=== PATIENT | female | born 1950 | race Caucasian/White ===

== ENCOUNTER 2016-05-22 00:31 | Day surgery (SDC) | payer MEDICARE, MEDICAID ==
[2016-05-22] VITALS (9 sets, daily range): BP systolic 110–136; BP diastolic 31–48; PULSE 74–77; RESP 16–18; O2SAT 98–99
[~2016-05-22] VITALS: Ht 152.4 cm; Wt 113.0 kg
[~2016-05-22 00:31] MED LIST: ACET-171 PO; ALBU8.5H2 INH; ALLO300T2 PO; AMT25T PO; ASCO-294 PO; ASPI-973 PO; ATOR20TA PO; CETI10CA PO; CHOL400T PO; FRSM80T PO; INSU100C8 SUBQ; INSU100I13 SUBQ; IPRA4AER IH; KEN1C TOP; METO10TA3 PO; METO50TA3 PO; MIDO5TAB PO; OMEP20TA86 PO; OXYC5TAB72 PO; ROPI1TAB3 PO; SEVE800T7 PO; VENL75CA95 PO
[2016-05-22 10:53] LABS: BASOPHILS % (AUTO) 0.3 % (0-3); EOSINOPHILS % (AUTO) 1.7 % (0-5); MONOCYTES % (AUTO) 6.5 % (4-12); Mean Corpuscular Hemoglobin 30.2 pg (27.0-35.0); NEUTROPHILS % (AUTO) 78.1 % (40-74); Platelet Count 177 bil/L (150-400)
[2016-05-22] MEDS ORDERED: 0.9% Sodium Chloride 1,000 ML ONE (10:58)
[2016-05-22] MEDS ORDERED: CeFAZolin 2 Gm/50 mL D5W Duplex Bag IV ONE (10:58)
[2016-05-22] MEDS ORDERED: CeFAZolin 2 Gm/50 mL D5W IV Premix IV ONE (11:05)
[2016-05-22 11:08] LABS: INR 0.95 ratio
[2016-05-22] MEDS ORDERED: Heparin 5,000 Units/500 mL NS Premix IV ONE (11:43)
[2016-05-22] MEDS ORDERED: Heparin 1,000 Unit/mL 10 mL Inj ONE (11:43)
[2016-05-22] MEDS ORDERED: fentaNYL-PF 50 mCg/mL 2 mL Inj ONE (11:56)
--- NOTE | 2016-05-22 15:16 | DRSVH ---
PROCEDURE: ARTERIO VENOUS FISTULOGRAM (PNL) INDICATIONS: ESRD TECHNIQUE: FLUOROSCOPY TIME: 3.6 minutes. COMPARISON: None. Technique: 1. Conscious sedation for 45 minutes 2. Retrograde access of the midportion of the left upper extremity venous outflow. 3. Fistulogram performed in stations to the level of the SVC and reflux fistulogram at the arterioven ous anastomosis. 4. Balloon angioplasty at the arteriovenous anastomosis. 5. Balloon angioplasty of the peripheral portion of the venous outflow. 6. Completion fistulogram. 7. Sheath removal hemostasis. The indications, alternatives, benefits, risks, and complications of the procedure were explained to the patient.. Informed written consent was obtained and placed in the chart. The patient was krystal t to the angiography suite, and conscious sedation was administered intravenously by snf staff, while continuous cardiorespiratory monitoring was performed. Maximum sterile barrier technique was employed per standard protocol, including hand hygiene, cap, ma sk, sterile gown and gloves, and 2% chlorhexidine. One percent lidocaine was used to anesthetize the skin over the area of interest. In a retrograde fashion using a micropuncture kit the left upper extr emity venous outflow was accessed. Fistulogram was performed through the micropuncture sheath. An 035 wire was advanced across the arteriovenous fistula with either the Kumpe catheter. The micropuncture sheath was exchanged for a short 6 Sinhala sheath. Balloon angioplasty was performed at the arteriove nous anastomosis with a 4 mm x 2 cm high pressure balloon. Fistulogram was performed. Next, balloon a ngioplasty was performed more centrally in the venous outflow with a focal high-grade stenosis with a 6 mm x 40 mm high pressure balloon. Completion fistulogram was performed. The wire was removed, the sheath was removed, and hemostasis was achieved. FINDINGS: Initial fistulogram demonstrates a focal high-grade stenosis at the arteriovenous anastomo sis and a high-grade stenosis within the midportion of the venous outflow. Completion fistulogram dem onstrates resolution of the stenoses. There is no central stenosis or fistulogram of the central port ion of the venous outflow demonstrates a moderate grade stenosis in the central portion of the cephal ic vein. There is mild collateralization of the central portion of the cephalic vein central to this stenosis. The axillary vein, brachiocephalic vein, and SVC are widely patent. IMPRESSION: 1. Status post balloon angioplasty of a focal high-grade stenosis at the arteriovenous anastomosis. 2. Status post angioplasty of a focal high-grade stenosis within the mid venous outflow. 3. Mild stenosis within the central portion of the cephalic vein. No angioplasty was performed at thi s time. If there is persistent elevated high venous pressures or prolonged bleeding after dialysis, b alloon angioplasty of this region could be considered in the future. Dictated by: Tala Metz M.D. on 05/22/2016 at 15:15 Approved by: Tala Metz M.D. on 05/22/2016 at 15:15
--- NOTE | 2016-05-22 15:39 | NUR ---
Pt discharged to home, purse string suture d/c'd, no bleeding/hematoma at puncture site, IV discontinued. Pt's VSS, given all discharge instructions. Pt left via wheelchair with family member, had no further questions at time of d/c.
== END 2016-05-22 23:59 | disposition home or self-care (01) ==
LOC: SOUO 00:31
PROVIDERS: ATTEND Radiology Vascular & Interventional Radiology
DX: T82.858A Stenosis of other vascular prosthetic devices, implants and grafts, initial encounter (principal); N18.6 End stage renal disease; Z99.2 Dependence on renal dialysis; D63.1 Anemia in chronic kidney disease; Z87.440 Personal history of urinary (tract) infections
CPT/HCPCS: 36415; 36905; 80048; 85025; 85610; 85730; 99152; 99153; C1725; C1769; C1894; J1644; J2250; J3010; Q9967

== ENCOUNTER 2016-08-20 23:39 | Inpatient (IN) | payer MEDICARE, MEDICAID ==
[~2016-08-20] VITALS: Ht 152.4 cm; Wt 119.7 kg
--- NOTE | 2016-08-20 23:49 | ED.REPORT ---
HPI-Fever Date of Service Aug 20, 2016 ED Provider: Jerrell Woods DO Pt is a 66 y.o. female with an extensive medical hx including ESRD on hemodialysis, DM, CHF, CA, and CVA who presents to the ED via EMS from [facility] c/o a fever onset today. Pt is currently at [facility] undergoing treatment for MRSA, she is supposed to be released Sunday. Upon arrival pt states she is "numb all over". Pt was being administered Tylenol by care staff, her last dose at 2215. Nursing Notes Stated Complaint: FEVER Nursing Notes Reviewed: Yes Allergies: Coded Allergies: metformin (Verified Adverse Reaction, Severe, itching, 04/17/16) sulfamethoxazole (Verified Adverse Reaction, Severe, Nausea, 04/17/16) trimethoprim (Verified Adverse Reaction, Severe, Nausea, 04/17/16) Uncoded Allergies: COUGH SYRUPS (Allergy, Unknown, UNKNOWN, 11/24/15) TETANUS (Allergy, Unknown, UNKNOWN, 11/24/15) Scheduled Albuterol/Ipratropium (Combivent Respimat Inhal [place]) 120 Spr/4 Gm Inhaler 2 PUFF IH BID Allopurinol (Allopurinol) 300 Mg Tablet 150 MG PO HS Amitriptyline (Amitriptyline) 25 Mg Tab 50 MG PO HS Ascorbate Calcium (Vitamin C) 500 Mg Tablet 500 PO DAILY Aspirin (Aspirin) 81 Mg Tablet 81 MG PO DAILY Atorvastatin (Lipitor) 20 Mg Tablet 20 MG PO DAILY Cholecalciferol (Vitamin D3) (Vitamin D3) 400 Unit Tablet 400 UNIT PO DAILY Furosemide (Furosemide) 80 Mg Tab 80 MG PO DAILY Insulin Glargine (Lantus U100 Solostar Insulin Pen) 100 Unit/1 Ml Insuln.pen 15 UNITS SUBQ HS Metoprolol Tartrate (Metoprolol Tartrate) 50 Mg Tablet 25 MG PO BID Midodrine (Midodrine) 5 Mg Tablet 10 MG PO BID take on dialysis days Omeprazole (Omeprazole) 20 Mg Tablet.dr 20 MG PO DAILY Ropinirole (Ropinirole) 1 Mg Tablet 1 MG PO HS Sevelamer Carbonate (Renvela) 800 Mg Tablet 1,600 PO TID with meals Venlafaxine ER (Venlafaxine ER) 75 Mg Cap.er.24h 75 MG PO DAILY take along with 150mg ER for a total daily dose of 225mg Venlafaxine ER (Venlafaxine ER) 150 Mg Cap.er.24h 150 MG PO DAILY take along with 75mg ER for a total daily dose of 225mg Scheduled PRN Acetaminophen (Acetaminophen) 500 Mg Tablet 500 MG PO Q6H PRN PRN For Pain Albuterol HFA (Proair HFA) 8.5 Gm Hfa.aer.ad 2 PUFF INH Q4H PRN PRN For Shortness of Breath Cetirizine HCl (Zyrtec) 10 Mg Capsule 10 MG PO HS PRN PRN allergy Insulin Aspart (NovoLOG U100 Insulin Vial) 100 U/Ml U 2-3 UNIT SUBQ TIDWM PRN PRN blood sugars 2-3 UNITS 2 HOURS AFTER MEALS sliding scale based on blood sugar level Metoclopramide (Metoclopramide) 10 Mg Tablet 10 MG PO DAILY PRN PRN For Nausea/ Vomiting Triamcinolone Acet (Triamcinolone Acetonide Cream) 1 Applic/0.25 Gm Cr 1 APPLIC TOP DAILY PRN PRN RASH "TO PELVIC AREA WHEN NEEDED" oxyCODONE (oxyCODONE) 5 Mg Tablet 5 MG PO Q6H PRN PRN For Pain General Time Seen by MD: 23:48 Chief Complaint Recent fever Hx Obtained From: Patient, EMS Arrived By: Ambulance Onset Occurred: 9 - 12 hours ago Symptom Duration: Since onset Past Medical History Past Medical History ESRD on hemodialysis Hx of CA Hx of CVA A-fib Aortic stenosis HLD Asthma DM Uterine cancer GERD Reports: Congestive heart failure, Diabetes mellitus Reports: Depression, Seizure disorder Past Surgical History AV Fistula Tunneled catheter Foot Reports: Appendectomy, Cholecystectomy, Tonsillectomy Smoking History Former Smoker Review of Systems Constitutional: Reports: Fever, Denies: Chills GI: Denies: Nausea, Vomiting Neurologic: Reports: Numbness ("all over") Complete sys rev & neg: except as marked. Physical Exam Initial Vital Signs Vital Signs (First) Date Time Temp Pulse Resp B/P Pulse Ox O2 Delivery O2 Flow Rate FiO2 08/20/16 23:52 37.2 76 13 119/29 91 Room Air 08/21/16 00:43 2 Initial VS: Reviewed Head / Eyes: Atraumatic, Normocephalic ENT: Mucous membranes moist Extremities: Vascular intact, Neuro intact General/Constitutional: Awake, Alert, No acute distress Appearance / Presentation: Positive: Obese, morbidly Slow to answer Globally weak Neck: Atraumatic Wheezing / Retractions: Positive: Wheeze insp/exp diffuse (Faint) Crackles in base of lungs Cardiovascular: Heart rate NL, Regular rhythm, Heart sounds NL Color / Condition: Positive: Erythema localized (Flank, with mild cellulitits) Neurologic: Speech NL (Slow), No motor deficits, No sensory deficits Interpretation & Diagnostics Lab Results Interpretation Result Diagram: 08/21/16 0625 08/21/16 0625 Test 08/20/16 23:47 08/20/16 23:48 08/21/16 00:00 08/21/16 00:17 Band Neutrophils % 1% (1-5) Hold Blue Top Tube Received (Received) Total Bilirubin 0.3mg/dL (0.0-1.2) Aspartate Amino Transf (AST/SGOT) 13U/L (0-50) Alanine Aminotransferase (ALT/SGPT) 14U/L (0-32) Alkaline Phosphatase 149U/L (25-165) Total Protein 6.2g/dL (6.4-8.4) Albumin 3.7g/dL (3.4-5.0) Procalcitonin 0.80ng/mL (0.00-0.08) Hold Purple Top Tube Received (Received) Prothrombin Time 10.7sec (8.1-12.5) Prothromb Time International Ratio 1.00ratio Lactic Acid Level 1.0mmol/L (0.4-2.0) ECG Interpretation ECG Interpretation: ST depression laterally Non specific intraventriuclar conduction delay No STEMI Time: 23:50 Interpreted by: ED physician Normal ECG Interpretation: Normal rate (77) X-Ray Chest Interpretation Chest Xray Interpretation: IMPRESSION: Right middle lobe pneumonia. Interpretation / Wet Read by: Wet read ED physician Re-Eval/Medical Decision Med Decision/Clinical Course Medically complex 66-year-old female presents with fever, cough and global weakness. She has hypoxia, widened pulse pressure and crackles in the right base. Chest x-ray is consistent with early pneumonia. Laboratory work shows some indicators of infection. As such she will be treated with Zosyn for healthcare associated pneumonia. Consider vancomycin and levofloxacin as well. Consulted with nephrology for dialysis. Hospitalist admitted. Source of Hx: Old records Re-Evaluation/Progress : Time of Eval: 01:20 Re-Evaluation/Progress Note: Pt rechecked. Pt's spouse is now present. Discussed need for admit. Pt understands and agrees with plan. Consultation : Referral / Consult Name: Danny Falcon MD Consulted With: Hospitalist Call Returned at: 01:35 Note: Discussed pt condition. Accepts admit. Counseled Regarding: Diagnosis, Lab results, Need for admission Discharge & Departure Impression: Primary Impression: Right middle lobe pneumonia Pneumonia type: due to unspecified organism Qualified Code: J18.1 - Lobar pneumonia, unspecified organism Additional Impressions: ESRD (end stage renal disease) on dialysis HCAP (healthcare-associated pneumonia) Disposition: ADMITTED TO HOSPITAL Discharge Condition All VS Reviewed: Yes Referrals: Gregorio Mcdonald MD (PCP) Cm Attestation Portions of this note were transcribed by Tramaine Hernandez. I, Dr. Woods personally performed the history, physical exam and medical decision-making; I reviewed and confirmed the accuracy of the information in the transcribed note. Signed by : Cm Lyons, 08/21/16 and 0209 copies to: Gregorio Mcdonald MD, Todd P DO Aug 20, 2016 23:48 TRAMAINE HERNANDEZ Aug 21, 2016 00:02 Albumin 3.7g/dL (3.4-5.0) Procalcitonin 0.80ng/mL (0.00-0.08) Hold [place] Top Tube Received (Received) Hold Purple Top Tube Received (Received) Lactic Acid Level 1.0mmol/L (0.4-2.0) ECG Interpretation ECG Interpretation: ST depression laterally Non specific intraventriuclar conduction delay No STEMI Time: 23:50 Interpreted by: ED physician Normal ECG Interpretation: Normal rate (77) X-Ray Chest Interpretation Chest Xray Interpretation: IMPRESSION: Right middle lobe pneumonia. Interpretation / Wet Read by: Wet read ED physician Re-Eval/Medical Decision Source of Hx: Old records Re-Evaluation/Progress : Time of Eval: 01:20 Re-Evaluation/Progress Note: Pt rechecked. Pt's spouse is now present. Discussed need for admit. Pt understands and agrees with plan. Consultation : Referral / Consult Name: Danny Falcon MD Consulted With: Hospitalist Call Returned at: 01:35 Note: Discussed pt condition. Accepts admit. Counseled Regarding: Diagnosis, Lab results, Need for admission Discharge & Departure Impression: Primary Impression: Right middle lobe pneumonia Pneumonia type: due to unspecified organism Qualified Code: J18.1 - Lobar pneumonia, unspecified organism Disposition: ADMITTED TO HOSPITAL Discharge Condition All VS Reviewed: Yes Referrals: Gregorio Mcdonald MD (PCP) Cm Attestation Portions of this note were transcribed by Tramaine Hernandez. I, Dr. Woods personally performed the history, physical exam and medical decision-making; I reviewed and confirmed the accuracy of the information in the transcribed note. Signed by : Cm Lyons, 08/21/16 and 0209 copies to: Gregorio Mcdonald MD, Todd P DO Aug 20, 2016 23:48 TRAMAINE HERNANDEZ Aug 21, 2016 00:02
[2016-08-20] MEDS ORDERED: 0.9% Sodium Chloride 1,000 ML IV ONE (23:50)
[2016-08-20 23:52] VITALS: BP 119/29; PULSE 76; RESP 13; O2SAT 91
[2016-08-21] VITALS (23 sets, daily range): BP systolic 114–166; BP diastolic 39–65; PULSE 70–97; RESP 14–24; O2SAT 85–100
[2016-08-21 00:17] LABS: Mean Corpuscular Volume 97.7 fL (81-100)
[2016-08-21 00:18] LABS: BASOPHILS % (AUTO) 0.1 % (0-3); EOSINOPHILS % (AUTO) 1.2 % (0-5); Mean Corpuscular Hemoglobin 30.4 pg (27.0-35.0); Platelet Count 170 bil/L (150-400)
[2016-08-21] MEDS ORDERED: Albuterol 2.5 mg/3 mL Inhalation Solution NEB ONE (00:20)
[2016-08-21] MEDS ORDERED: Albuterol-Ipratropium 3 mL Inhalation Solution NEB ONE (00:40)
[2016-08-21] MEDS ORDERED: Piperacillin-Tazo 3.375 Gm Inj 3.375 GM in Dextrose 5% Minibag Plus 50 ML IV ONE (01:15)
[2016-08-21] MEDS ORDERED: 0.9% Sodium Chloride 1,000 ML IV SCH (01:27)
[2016-08-21] MEDS ORDERED: Glucose 40% Oral Gel 15 Gm Tube PO PRN (01:30)
[2016-08-21] MEDS ORDERED: Alum-Mag Hydrox-Simeth 30 mL Suspension PO PRN (01:30)
[2016-08-21] MEDS ORDERED: Polyethylene Glycol (PEG) 17 Gm Powder PO PRN (01:30)
--- NOTE | 2016-08-21 01:40 | PCM.HPMED ---
Subjective Date of Service Aug 21, 2016 Primary Provider: Admitting Physician: Primary Care Physician: Gregorio Mcdonald MD Attending Physician: Admit Status: From the Emergency Department, Full Admit, Remote Telemetry Chief Complaint: Fever at group home History of Present Illness: Patricia Plaza is a 66 y.o. female with ESRD on hemodialysis, Diabetes, Coronary artery Disease with Severe Aortic stenosis, Obesity who presents to [facility] Emergency department via EMS from [facility] c/o a fever onset today. Admitted to [facility] 07/25/16 after being hospitalized at [facility] (details unclear) Apparently she had skin abscess with MRSA septicemia and is currently receiving antibiotics treatment at the group home (patient unclear of duration and name of antibiotics). She has shortness of breathe with a dry cough. Associated symptoms includes body aches and fevers. She also has poor appetite Patient has Severe Aortic stenosis with plans to follow up at (not yet evaluated). History of non compliance with dialysis but has not missed any since being at [facility]. Patient hypoxic and denies any oxygen requirement prior. She reports occasional aspiration episodes but denies any dysphagia. Case discussed with Dr Woods. Some improvement with oxygen supplement and Neb treatments. Dr Ta will be consulted for dialysis orders Review of Systems: Pertinent positives as noted in HPI. All other systems were reviewed and are negative Allergies Coded Allergies: metformin (Verified Adverse Reaction, Severe, itching, 04/17/16) sulfamethoxazole (Verified Adverse Reaction, Severe, Nausea, 04/17/16) trimethoprim (Verified Adverse Reaction, Severe, Nausea, 04/17/16) Uncoded Allergies: COUGH SYRUPS (Allergy, Unknown, UNKNOWN, 11/24/15) TETANUS (Allergy, Unknown, UNKNOWN, 11/24/15) Home Medications From [facility], not yet confirmed Patricia Plaza [id number] 1950 07/25/2016 10:00 AM 05/14 acetaminophen 500 mg tablet take 1 tablet by oral route every 6 hours as needed albuterol sulfate HFA 90 mcg/actuation aerosol inhaler inhale 2 puff by inhalation route every 4 - 6 hours as needed allopurinol 300 mg tablet take 1/2 tablet by oral route every day AMITRIPTYLINE 50MG TAB NORT TAKE ONE TABLET BY MOUTH ONE TIME DAILY Aspir-81 81 mg tablet,delayed release take 1 tablet by oral route every day atorvastatin 20 mg tablet take 1 tablet by oral route every day Cardizem CD 120 mg capsule,extended release take 1 capsule by oral route every day Combivent Respimat 20 mcg-100 mcg/actuation solution for inhalation inhale 2 puff by inhalation route 4 times every day ; may take additional puffs as needed not to exceed 6 puffs in 24hrs Crestor 10 mg tablet take 1 tablet by oral route every day furosemide 80 mg tablet take 1 tablet by oral route 2 times every day Lantus Solostar 100 unit/mL (3 mL) subcutaneous insulin pen inject 10 units subQ daily Levaquin 750 mg tablet take 1 tablet by oral route every day metoprolol succinate ER 25 mg tablet,extended release 24 hr take 1 tablet by oral route every day midodrine 10 mg tablet take 1 tablet by oral route 3 times every day Novolog Flexpen 100 unit/mL subcutaneous inject 1 unit if BS 141-199, 2 units if 200-249, 3 units if 250-299, 4 units if 300-349, 5 units if >350, before meals Novolog Flexpen 100 unit/mL subcutaneous inject 1 unit if BS 200-249, 2 units if 250-299, 3 units if 300-349, 4 units >349 at bedtime omeprazole 20 mg capsule,delayed release take 1 capsule by oral route every day 30 minutes to 1 hour before a meal oxycodone 5 mg tablet take 1 capsule by oral route every 6 hours as needed pantoprazole 40 mg tablet,delayed release take 1 tablet by oral route every day ProAir HFA 90 mcg/actuation aerosol inhaler inhale 2 puff by inhalation route every 4 hours as needed for shortness of breath ropinirole 1 mg tablet take 1 tablet by oral route 2 times every day spironolactone 25 mg tablet take 1 tablet by oral route every day venlafaxine ER 75 mg tablet,extended release 24 hr take 3 tablet by oral route every day Vitamin D3 400 unit capsule warfarin 5 mg tablet take 1 tablet by oral route every day Zyrtec 10 mg tablet take 1 tablet by oral route every day PMH Type 2 diabetes with neuropathy End-stage renal disease, on dialysis, secondary to diabetes. Obstructive Sleep Apnea Morbid obesity. Hypertension. Hyperlipidemia. History of non-STEMI in July 2015 (Cath showed minimal epicardial coronary artery disease) Chronic Atrial Fibrillation on Coumadin GERD Restless Leg syndrome Severe Aortic Stenosis COPD Depression Cervical cancer Gout . Surgical History Tonsillectomy Dialysis access placement Family History Positive for diabetes Social History Hx Alcohol Use: No Hx Substance Use: No Hx Tobacco Use: Yes Smoking Status: Former Smoker Living Arrangement: Custodial Facility ([facility]) Exam Vital Signs Vital Sign - Last Date Time Temp Pulse Resp B/P Pulse Ox O2 Delivery O2 Flow Rate FiO2 08/21/16 00:43 97 18 100 Nasal Cannula 2 08/20/16 23:52 37.2 119/29 Exam General: Alert, Oriented X3, Cooperative, mild respiratory Distress Eyes: PERRLA, Scleral Anicteric Mouth: Mouth Normal, Mucous Membranes Moist/[place] Neck: Supple, no Thyromegaly, trachea central. Chest & Lungs: decreased breathe sounds at bases Cardiovascular: Normal S1, Normal S2, No Rubs/Gallops, Irregularly irregular with systolic Aortic stenosis murmur (No JVD, no peripheral edema) Pulses: Radial (present and equal), Dorsalis Pedi (present and equal) Abdomen: Soft, Non-tender, Non-distended, Normoactive bowel tones. Musculoskeletal: Unremarkable. Normal range of motion, no swollen or erythematous joints Extremities: No edema, no cyanosis, no clubbing. Skin: No rashes. Warm and dry, no erythematous areas Neurological: Grossly neurologically intact, has generalized weakness, Normal Speech, Sensation Intact Lymphatic: Lymph nodes Cervical and Axillary not palpable. Lab and Diagnostics Labs Laboratory Tests Test 08/20/16 23:47 08/20/16 23:48 08/21/16 00:17 White Blood Count 7.5th/mm3 (3.8-10.1) Red Blood Count 2.99mil/mm3 (3.90-5.20) Hemoglobin 9.1g/dL (12.0-15.6) Hematocrit 29.2% (35.0-46.0) Mean Corpuscular Volume 97.7fL (81-100) Mean Corpuscular Hemoglobin 30.4pg (27.0-35.0) Mean Corpuscular Hemoglobin Concent 31.2% (32.0-37.0) Red Cell Distribution Width 15.1% (12.3-15.4) Platelet Count 170bil/L (150-400) Neutrophils (%) (Auto) 75.0% (40-74) Lymphocytes (%) (Auto) 15.2% (14-46) Monocytes (%) (Auto) 8.0% (4-12) Eosinophils (%) (Auto) 1.2% (0-5) Basophils (%) (Auto) 0.1% (0-3) Band Neutrophils % 1% (1-5) Hold Purple Top Tube Received (Received) Received (Received) Hold Blue Top Tube Received (Received) Sodium Level 133mEq/L (134-144) Potassium Level 5.0mEq/L (3.5-5.2) Chloride Level 89mEq/L (97-108) Carbon Dioxide Level 24mmol/L (18-29) Blood Urea Nitrogen 52mg/dL (8-27) Creatinine 7.44mg/dL (0.57-1.00) Estimat Glomerular Filtration Rate 8mL/min (>59) Glucose Level 140mg/dL (60-99) Calcium Level 9.0mg/dL (8.5-10.1) Total Bilirubin 0.3mg/dL (0.0-1.2) Aspartate Amino Transf (AST/SGOT) 13U/L (0-50) Alanine Aminotransferase (ALT/SGPT) 14U/L (0-32) Alkaline Phosphatase 149U/L (25-165) Troponin T 0.018ug/L (0.0-0.011) Total Protein 6.2g/dL (6.4-8.4) Albumin 3.7g/dL (3.4-5.0) Procalcitonin 0.77ng/mL (0.00-0.08) Hold [place] Top Tube Received (Received) Lactic Acid Level 1.0mmol/L (0.4-2.0) Microbiology 08/20/16 Influenza Screen - Final, Complete Result Diagram: 08/20/16 2344 08/20/16 2346 Assessment & Plan Patricia Plaza is a 66 y.o. female with ESRD on hemodialysis, Diabetes, Coronary artery Disease with Severe Aortic stenosis, Obesity who presents to [facility] Emergency department via EMS from [facility] c/o a fever 1. Healthcare associated pneumonia. Present on admission Report that patient currently receiving antibiotics for MRSA infection. Influenza negative. Meeting criteria for Healthcare associated infection with being a group home resident and recent hospitalization. Risk factors for both Pseudomonal and MRSA infections. Differential diagnosis includes Acute Congestive Heart Failure. Clinically does not seem to be COPD exacerbation with lack of sputum or cough variations from day to day symptoms. Aspiration is possible but my suspicion is low - continuing Zosyn Iv for empiric antibiotics - Unclear if the patient is receiving Vancomycin, will request SNF records - Blood cultures, Legionella antigen and Procalcitonin - possible endocarditis with recent MRSA infections and septicemia - Dr Fregoso consulted tomorrow 2. Elevated troponin. Present on admission Suspect demand ischemia however patient has risk factors for Non ST elevation Myocardial infarction. Currently without any anginal or equivalent complaints - trending troponin - complete echo in the morning (this to monitor progression of Aortic stenosis) 3. Hypochloremic Hyponatremia. Present on admission Likely due to Hypovolemia also could be related to Chronic kidney disease - continue Iv fluids - monitor sodium closely 4 Endstage Renal disease on hemodialysis Due to Diabetic Nephropathy and Hypertensive Nephrosclerosis. Scheduled for dialysis on Sunday, Sunday and Sunday - Dr Ta will be contacted for inpatient dialysis orders - no indication for emergency dialysis tonight 5 Chronic Atrial Fibrillation on Chronic anticoagulations - monitor on telemetry - continue Cardizem for rate [id number] mg daily, also on Metoprolol 25 mg daily - checking INR, no bleeding, Pharmacy to dose Coumadin dose 6 Diabetes Type 2 with neuropathy - low correction Lispro algorithm - checking A1c to gauge control - determine Lantus dosing and continue 7 Severe Aortic Stenosis Patient recommended for TAVR procedure at [facility] 8 Coronary artery disease - continue Aspirin for antiplatelet therapy 9 Hypertension with hypotensive issues - continuing Midodrine as scheduled 10 Morbid Obesity with Obstructive Sleep apnea - continue CPAP at night 11 Depression, Anxiety with Restless Leg Syndrome Presumed stable - continue Ropinirole, Venlafaxine and Amitriptyline - Acetaminophen as needed for mild pain/fever/headache - Bowel regimen as needed - Antiemetic as needed Patient admitted under inpatient status with expected length of stay > 2 midnights for severity of present symptoms, complexities of treatment plan and risk for adverse event . Resuscitation Status: CPR: Attempt Resuscitation Danny Falcon MD Aug 21, 2016 01:40
--- NOTE | 2016-08-21 03:00 | NUR ---
Admission Note Pt admitted to [facility] from ER on stretcher at 0245, alert and orientedx3, SOB,intermittent non productive cough, mild pain at upper chest with cough, denies N/V/fever/chills. BP121/39 HR 86 RR SPO2 88-94% on O2 2l per nc,afebrile. Wheezes bilaterally, crackles and coarse lung sounds mostly at posterior LLs bilaterally, tele applied, SR 90 per x ray service technician, systolic murmur mostly at apical area, abdomen soft, nontender, BT active. Fistula at left arm, skin breakdown at bilateral under breasts, abdominal fold, groins and bilateral upper thighs posteriorly, at right lower muñiz. Call light oriented to pt, care ongoing. Vanegas placed at ER, no urine output, need urine sample and sputum sample if any.
--- NOTE | 2016-08-21 03:34 | PCM.ADCARE ---
Advance Care Planning Note Purpose of Encounter: Active Diagnoses: Endstage Kidney disease Coronary artery disease Severe Aortic stenosis These active diagnoses are sufficient risk that focused discussion on advance car planning is indicated in order to allow the patient to thoughtfully consider personal goals of care and if situations arise that prevent the ability to personally give input to insure appropriate representation of their personal desires through documentation or informed surrogate decision makers Parties in Attendance: Patient and me Decisional Capacity: Good Goals of Care Determinations: I reviewed her diagnosis of shelter dialysis dependent Endstage renal disease , Severe Aortic Stenosis (need to surgical intervention but poor candidate and is considered for RAJ procedure at ) and her desires for ongoing aggressive care, including potential intubation and mechanical ventilation as well as CPR. Also discussed who would speak on her behalf should she be unable to do so, she states her daughter Jennifer Plaza will be her proxy. She understands her conditions for both her kidney and heart disease carry poor prognosis with no good treatment options available but she would wanna fight it till the end CODE STATUS: Full code Time Spent Adv.Care Planning: Total time spent [id number] in education and discussion directly related to Advance Care Plannin minutes Danny Falcon MD Aug 21, 2016 03:34
[2016-08-21] MEDS ORDERED: VENL150C98 PO (04:49)
[2016-08-21] MEDS: Albuterol-Ipratropium 3 mL Inhalation Solution NEB SCH ×6 (04:56→23:44)
[2016-08-21 06:42] LABS: BASOPHILS % (AUTO) 0.1 % (0-3); EOSINOPHILS % (AUTO) 0.5 % (0-5); MONOCYTES % (AUTO) 6.8 % (4-12); Mean Corpuscular Hemoglobin 29.5 pg (27.0-35.0); Mean Corpuscular Volume 97.5 fL (81-100); NEUTROPHILS % (AUTO) 81.1 % (40-74); Platelet Count 155 bil/L (150-400)
[2016-08-21] MEDS: Insulin LISPRO 300 Unit/3 mL Inj SUBQ SCH ×4 (08:00→22:00)
--- NOTE | 2016-08-21 08:03 | DRSVH ---
PROCEDURE: X-RAY CHEST ONE VIEW, PORTABLE ([id number]) INDICATIONS: sepsis TECHNIQUE: One view of the chest was acquired. COMPARISON: [facility], CR, XR CHEST 2VW, 03/07/2016, 15:23. [facility], CR, CHEST 1 VIEW, 07/11/2016, 17:23. FINDINGS: Surgical changes and devices: None. Lungs and pleura: Lung volumes are low and there is medial bibasilar airspace opacity present likely atelectasis. No pneumothorax. Right hemidiaphragm is elevated. Mediastinum: Mediastinal contours appear normal. Heart size is normal. Bones and chest wall: No suspicious bony lesions. Overlying soft tissues appear unremarkable. IMPRESSION: 1. Bibasilar atelectasis versus aspiration or pneumonia. Correlate clinically. Dictated by: Isidro Alexander [facility] Interpreted: Romario Sweeney MD on 08/21/2016 at 8:01 Transcribed by: GEREMIAS on 08/21/2016 at 8:02 Approved by: Romario Sweeney M.D. on 08/21/2016 at 9:07
[2016-08-21] MEDS ORDERED: Non-Formulary Medication (Venlafaxine ER 150 MG) PO SCH (08:30)
[2016-08-21] MEDS: Vancomycin Dose per Pharmacist XX SCH (08:50)
[2016-08-21] MEDS: Venlafaxine XR 75 mg ER24 Capsule PO SCH (09:07)
--- NOTE | 2016-08-21 10:56 | PCM.CONPHA ---
Subjective Fever at [facility] Reason for Pharmacy Consult: Anticoagulation Management Assessment/Plan Assessment/Plan WARFARIN DOSING PER PHARMACY Indication: Stroke prevention Afib Home dose (LTCF): 5 mg daily Current INR: 1.00 A/P -Subtherapeutic INR but unclear if patient was actively taking medication. [facility] notes state that warfain was stopped early 07/2016 due to erratic INR's but the transfer paperwork lists warfarin on the profile. Heparin 5,000U Q12h was listed for DVT ppx. -After consulting with physician, will give patient warfarin 5mg tonight while we follow-up on hx. Current level suggest therapy was stopped. -Will restart heparin 5,000U Q12h for DVT ppx per physician. -Pharmacy will continue to monitor. Kuldeep Nino, PharmD Kuldeep Nino Aug 21, 2016 10:45
[2016-08-21] MEDS ORDERED: Vancomycin Inj 2,000 MG in 0.9% Sodium Chloride 500 ML IV ONE (12:00)
--- NOTE | 2016-08-21 12:08 | NUR ---
Somnolence / temp / off floor to dialysis Patient somnolent during AM shift, will rouse to voice and light stimulation. Patient states she is "just tired" and "wants to rest". Primary MD (Dr Blair) is at bedside at approximately 0800 and is aware. Patient's O2 currently at 2L/min NC with sats in the high 90s. Attempted trial at 0.5L/min to reduce sats to 89% as patient has history of COPD. Consulted with Dr Blair who states it is unknown wether patient is a CO2 retainer. Patient's somnolence not improved on 0.5L/min. O2 increased back to 2L/min. Temp is 37.7 oral, 650mg Tylenol given which reduced temp to 37.1 oral. Patient off floor at 1135 to [facility] for dialysis. Report given to ABELARDO Parr at [facility]. operating room technician aware. [address] Blair on if drawing ABG might be appropriate for patient. Awaiting further orders.
--- NOTE | 2016-08-21 12:15 | PCM.CONPHA ---
Subjective Fever at longterm Reason for Pharmacy Consult: Vancomycin Dosing Assessment/Plan Assessment/Plan Pharmacy Kinetic Dosing Vancomycin Indication: MRSA septicemia Goal vanc trough: 15-20 mcg/ml Pt wt: 119.9 kg ESRD on HD Other ABX: Zosyn SCr: 0.62; WBC: 8.4; Febrile Cultures: Blood pending; MRSA swab (+) Random vancomycin level (08/21): 2.3 Assessment/Plan: -Subtherapeutic random vancomycin level.Notes state that pt was started on broad -spectrum ABX upon presentation of fevers to senior living but no documentation of what was given and pt is poor historian. -Will initiate loading dose of vancomycin 2,000mg x 1 noting that pt has small level already in bloodstream. -Will schedule random levels to be drawn with morning labs beginning 08/22. Pharmacy appreciates consult and will continue to monitor. Thanks, Kuldeep Nino, PharmD Kuldeep Nino F Aug 21, 2016 12:15
--- NOTE | 2016-08-21 13:22 | ABG ---
DateTimeAnalyzed 13:18:00 -_ pH ____7.436 - 7.350 7.450 pCO2 ___44.3__ -mmHg 35.0 45.0 pO2 110 -mmHg 69.0 116 HCO3- ___29.3__ -mmol/L 22.0 26.0 ABE ____5.1__ -mmol/L -2.0 2.0 tHb ____8.9__ -g/dL O2Hb ___96.6__ -% COHb ____1.7__ -% MetHb ____0.7__ -% sO2 ___99.0__ -% FIO2 ___28.0__ -% Drawn By jj - Date/Time Notified____ 13:21:00 -_ Liter_Flow ____2.0__ -L/min Oxygen Device 1 __CANNULA - Notified By jj - Notified Whom RN Peter Tristan - B 753 -mmHg tO2 ___12.3__ -Vol% Kristofer test _Positive -
--- NOTE | 2016-08-21 13:54 | DRSVH ---
[facility] [address] [place] [address] Echocardiogram Report Name: CHRIS COREA EStudy Date: 08/21/2016 Height: 60 in Hospital Exam Location: [facility] Weight: 264 lb Gender: Female BSA: 2.1 m2 : 1950 Age: 66 yrs BP: 149/63 mm Hg Reason For Study: Pneumonia Ordering Physician: HOSPITALIST JULIAerformed By: Capri Gutiérrez Referring Physician: Dr. Gregorio Mcdonald Interpretation Summary The left ventricle is normal in size. The ejection fraction is estimated to be 60-65%. There has been no significant change in LV EF since the previous study. The right ventricle is borderline dilated. The right ventricular systolic function is normal. There is severe aortic stenosis (Paradoxically low gradient). The calculated aortic valve area is 1.0 cm2.The aortic valve area is 0.9 centimeters squared by planimetry. The peak aortic velocity is 3.6 m/sec. The aortic valve mean gradient is 32 mmHg. The peak aortic velocity on the previous exam was 3.8 m/sec. There is mild aortic regurgitation. Compared to the prior echo study, there has been no change in the severity of aortic regurgitation. There is trace tricuspid regurgitation. The right ventricular systolic pressure is estimated at 39 mmHg assuming a right atrial pressure of 3 mm Hg. Procedure: A two-dimensional transthoracic echocardiogram with color flow and Doppler was performed. The study quality was technically adequate. Comparison is made with the echocardiogram of 03-04-16. The patient was in normal sinus rhythm during the exam. Left Ventricle: The left ventricle is normal in size. Proximal septal thickening is noted. There is no echo evidence for significant left ventricular outflow tract obstruction. There is no thrombus. The ejection fraction is estimated to be 60-65%. There has been no significant change since the previous study. There are no focal wall motion abnormalities. Assessment of diastolic parameters suggests a pseudonormalization pattern, consistent with elevated filling pressures. There has been no significant change since the previous study. Right Ventricle: The right ventricle is borderline dilated. The right ventricular systolic function is normal. Atria: The left atrium is mildly dilated. There has been no significant change since the previous study. Right atrial size is normal. The interatrial septum is intact with no evidence for an atrial septal defect. Mitral Valve: The mitral valve leaflets appear mildly thickened, but open well. There is mild to moderate mitral annular calcification. The mitral valve leaflets are mildly calcified. The mitral valve chordae are thickened and/or calcified. There is trace mitral regurgitation. There has been no significant change since the previous study. Aortic Valve: The aortic valve is moderately calcified. The aortic valve is not well visualized. The aortic valve area is 0.9 centimeters squared by planimetry. The calculated aortic valve area is 1.0 cm2. The peak aortic velocity is 3.6 m/sec. The peak aortic velocity on the previous exam was 3.8 m/sec. The aortic valve mean gradient is 32 mmHg. Severity ratio is 0.28. There is severe aortic stenosis. There is mild aortic regurgitation. Compared to the prior echo study, there has been no change in the severity of aortic regurgitation. Tricuspid Valve: The tricuspid valve leaflets are thin and pliable. There is trace tricuspid regurgitation. The right ventricular systolic pressure is estimated at 39 mmHg assuming a right atrial pressure of 3 mm Hg. Compared to the prior echo exam, there has been no change in TR severity. Pulmonic Valve: The pulmonic valve is not well visualized. Great Vessels: The aortic root is normal size. The dimensions of the ascending aorta are normal. The IVC is of normal diameter and collapses greater than 50% with a sniff. This suggests a low right atrial pressure of 3 mm Hg. Pericardium/ Pleura There is no pericardial effusion. There is no pleural effusion. MMode/2D Measurements & Calculations LVIDd: 5.1 cmLA dimension: 4.1 cm RA long axis: 5.1 cm LVOT diam: 2.1 cm LVIDs: 3.4 cm AoV Opening FS: 33.2 % LA A2 area: 21.8 cm RA area: 18.7 cm EPSS: 1.1 cm LA A4 area: 25.3 cm RA vol: 57.9 ml Ao root diam IVSd: 0.86 cmLA length (vol) RA : 27.6 ml/m LVPWd RVDd major: 5.7 cm Aortic Jxn: 2.3 cm : 0.8cm LA vol: 76.7 ml asc Aorta Diam LA vol index Ao Arch Diam (Prox Trans): 2.8 cm IVC diam: 1.8 cm ROSETTA (plan) LV jimenez. diameter/BSA LV sys. diameter/BSA RVD1 (basal) : 0.88 cm2 (cm/m^2): 2.4 (cm/m^2): 1.6 : 3.8 cm RVD2 (mid) : 3.2 cm Doppler Measurements & Calculations Ao V2 max MV E max adan MV E/A: 1.7 TR max adan : 358.3 cm/sec : 147.3 cm/sec Med Peak E' Adan : 301.2 cm/sec Ao max PG MV A max adan TR max PG : 51.3 mmHg : 87.7 cm/sec E/E' med: 26.9 : 36.3 mmHg Ao mean PG MV P1/2t: 72.5 msec Lat Peak E' Adan PA V2 max : 31.5 mmHg : 118.3 cm/sec LVOT Max Adan E/E' lat: 16.8 PA mean PG : 94.2 cm/sec E/e' average: 21.9 ROSETTA(I,D): 0.98 cm Pulm A Revs Dur PA Accel Time sev ratio : 0.16 sec MV A dur: 0.12 sec AI P1/2t : 490.6 msec AI dec slope : 198.4 cm/s2c MV dec time MV P1/2t max adan Ao V2 mean LV V1 max PG : 0.25 sec : 264.5 cm/sec Ao V2 VTI: 90.6 cm LV V1 VTI MVA(P1/2t): 3.0 cm2 : 25.4 cm ROSETTA(V,D): 0.92 cm2 PA V2 mean ROSETTA indexed to BSA Pulm Ron Yañezs Dur - MV : 73.9 cm/sec (cm^2/m^2): 0.47 A Dur: -0.02 msec Reading Physician:JAEL
[2016-08-21] MEDS ORDERED: Piperacillin-Tazo 3.375 Gm Inj 3.375 GM in Dextrose 5% Minibag Plus 50 ML IV SCH (14:00)
[2016-08-21 15:12] LABS: APPEARANCE,URINE HAZY (CLEAR,HAZY); COLOR,URINE YELLOW (YELLOW); OCCULT BLOOD,URINE LARGE (NEGATIVE); UROBILINOGEN,URINE NORMAL (NORMAL)
[2016-08-21] MEDS ORDERED: Darbepoetin Alfa 60 mCg/0.3 mL Inj IV ONE (15:25)
--- NOTE | 2016-08-21 16:05 | NUR ---
Return from dialysis Patient back on floor at 1550 from [facility] [place]. Ordered antibiotics from this morning will be hung late as patient was off floor. MD (Dr Blair is aware). Patient placed on only 0.5L O2 per NC to maintain sats from 89-94% per MD. Bed low and locked, call light in reach, care and frequent rounding ongoing.
--- NOTE | 2016-08-21 16:09 | NUR ---
Social Work - Attempted Initial Assessment Attempted to do initial assessment but pt was off the floor receiving dialysis. Will attempt again tomorrow. GRANT Aguila
--- NOTE | 2016-08-21 16:21 | CONS ---
[address] [address] CONSULTATION REPORT PATIENT: CHRIS COREA : 1950 MR#: [id number] ADMIT: 08/21/2016 JOB ID: [id number] DATE OF SERVICE: 08/21/[address] Blair for this consult. REASON FOR CONSULTATION: Fever and cough with possible pulmonary infiltrates in a complex end-stage renal disease patient. HISTORY OF THE PRESENT ILLNESS: The patient is a 66-year-old woman with an extensive array of serious medical problems including end-stage renal disease, Diabetes mellitus, coronary artery disease, severe aortic stenosis, and morbid obesity with obesity hypoventilation. The patient was admitted in July 2016 to [facility]. We do not have full records from that admission but our understanding is that she had a MRSA bacteremia at that point due to skin breakdown. She was treated aggressively at [facility] and transferred to [facility] on July 25. It appears the patient was not receiving antibiotics at the time of her admission here, which was late last night on August 20. The patient was sent here from [facility] because of fever, intermittently productive cough, and poor appetite. The chest x-ray was interpreted as possible bilateral infiltrates and the patient was started on vancomycin and Zosyn with appropriate cultures done prior to initiation of antibiotics. ID consultation is requested at this time regarding management of this complex patient. The patient is quite lethargic and arouses with some difficulty. She tells us that she has been having fevers, as well as this cough which is intermittently productive for two days or so. She does not have pleuritic chest pain. She said the cough is sometimes productive of thick material but she is not able to give a good description of it. She is not apparently significantly short of breath but is more troubled by the fever and lethargy. She denies any significant headache or sore throat in association with these symptoms. She does not have much in the way of GI symptoms and denies nausea or vomiting or diarrhea. She produces minimal amounts of urine. On some days, she does end up with a full bladder at the very end of the day. There have been no overt urinary symptoms. PAST MEDICAL HISTORY: 1. End-stage renal disease requiring dialysis. 2. Diabetes mellitus. 3. Hypertension. 4. Organic heart disease. a. Coronary artery disease. b. Aortic stenosis. 5. Morbid obesity. 6. Sleep apnea. SOCIAL HISTORY: The patient ordinarily lives with family members in [place] but lately has been at [facility] in [facility]. Ironically, the patient had been scheduled to leave [facility] and go home to [place] today before the intervening fevers led her to admission here. She is a nonsmoker, nondrinker. FAMILY HISTORY: Completely negative in first and second-degree relatives for any history of TB. REVIEW OF SYSTEMS: The patient has no significant headache. She notes her vision is chronically poor but not acutely different. No significant sore throat or trouble swallowing. She has the cough which is intermittently productive as previously noted. No abdominal pain, nausea, vomiting, or diarrhea. No issues with her lower abdomen/pannus. She does produce moderate amounts of urine on occasion without dysuria. She notes she has pain in all of her joints which limits her mobility and she has been unable to walk very much recently due to unsteady gait, as well as pain in the joints. No skin rashes reported. Remainder of the review of systems is negative. PHYSICAL EXAMINATION: Reveals an obese woman with a BMI of 52, lying supine in the [facility] bed and being actively dialyzed through a fistula in her left upper arm. She was febrile to 38.8 earlier this morning, now 37.1. Pulse 70, respiratory rate 22, blood pressure 140/55. She is saturating well on 2 L by nasal cannula. Examination of mental status reveals she is lethargic but can be roused and is oriented but quickly drops back to sleep. Examination of head: No trauma. Eyes without conjunctivitis or scleral icterus. Nose is normal. Oral cavity with some dry mucus in the posterior pharynx but no exudates or erythema. The neck is without adenopathy. Lungs with rales at both bases, difficult to hear partly because of her size. The lung sounds are quite distant. Cardiac tones notable for about a 3/6 systolic murmur heard across the precordium. I do not hear a diastolic murmur. The abdomen is obese, soft, and nontender. There is an overlying lower pannus which is also nontender without inflammation. No appreciable hepatosplenomegaly. She does have a Vanegas catheter, which is collecting a fair amount urine which we hope to send for urine antigen test. She does not ordinarily have a Vanegas though, apparently. The joints are without obvious synovitis. Her lower extremities without significant edema. There are some venous stasis changes bilaterally but no ulcerations. Because the patient is lying flat and being dialyzed, we were not able to roll her over and look at her backside, but we plan to do that tomorrow. No obvious skin rash except the venous stasis changes, however. Neurologically, the patient is intact. She can answer questions and move all of her extremities. LABORATORIES: Include white count 8400 with basically mild left shift, 81% segs. Creatinine 8.5. LFTs normal. Procalcitonin 0.8. Respiratory viral PCR panel is pending still. MRSA screen of the nares positive. Influenza screen negative. Blood cultures pending. IMAGING: Consists of a single chest x-ray which I personally reviewed, and this shows bilateral atelectasis versus pneumonia. It does not show an impressive infiltrate by any means. Blood gas was done just moments ago; shows a pH of 7.43, pCO2 44, and pO2 110. IMPRESSION: This is an unfortunate woman with multiple severe and overlapping medical problems. She was apparently recently at [facility] with a methicillin-resistant Staphylococcus aureus bacteremia and we have asked to obtain those records, including the discharge summary and all micro data. We await the fax of this information. At this point, it sounds as if the patient was sent to [facility] and was slowly improving, getting ready to go home, when she developed an acute febrile process. Whether this is due to her lungs or not is unclear to me. This could certainly be a bacteremia and we await blood cultures. If she again has MRSA in her blood, I think this would be strong evidence that she in fact has endocarditis or perhaps even a fistula infection, but some intravascular focus of infection. Likewise, we are waiting on other studies including a respiratory viral PCR panel as well as the urine antigens for Legionella and pneumococcus. At this point, I see no soft tissue focus of infection and think this is likely either pulmonary or a primary bacteremia but will need to roll over the patient and get a careful look to see whether there is any infected decubitus or other process. RECOMMENDATIONS: 1. Will get urine antigens for pneumococcus and Legionella. These have been ordered. 2. We await the many other pending studies. 3. We are requesting the full records from [facility]. 4. For now I would continue with the renally adjusted vancomycin and Zosyn and will continue to follow this complex patient. Thank you very much for this consult.
--- NOTE | 2016-08-21 16:32 | NUR ---
Dialysis note: 3 hr tx, net UF 900. Off 20 min early r/t elevated venous pressure at 200 QB. Contact/droplet precautions taken r/t the possibility of MRSA. Hep titer drawn. Consent for tx signed. VS varied through tx: 90/34 HR 85 to 134/55 HR 90. Pt was lethargic with slurred speech at the beginning of tx but by the end she was more responsive. Blood returned, clotting noted in venous chamber. site clamped x 10 min, secured with gauze and tape. Please see DTR for complete record of VS. Pt returned to floor stable. Report given to primary RN Clyde.
[2016-08-21] MEDS: Heparin 5,000 Unit/mL Inj SUBQ SCH ×2 (16:51→20:36)
--- NOTE | 2016-08-21 17:39 | PCM.CHPMED ---
Subjective Date of Service: Aug 21, 2016 Provider requesting consult: Danny Falcon MD Primary Physician: Admitting Physician: Danny Falcon MD Primary Care Physician: Gregorio Mcdonald MD Attending Physician: Danny Falcon MD Admit Status: From the Emergency Department Chief Complaint: Chief Complaint: Fever History of Present Illness: Nephrology consultation note Patricia Plaza 66yoF patient presents from [facility] with report of fever. Nephrology was consulted given the patient's ongoing end-stage renal disease with dialysis performed by Dr. Pelaez. The patient reports sore throat and productive cough with yellow sputum which is also produced when blowing her nose. She describes seasonal allergies which are year round. The patient denies substernal chest pain but does have some pain described as chronic in her left side. The patient denies any nausea or vomiting or constipation diarrhea at this time. She denies any difficulty with urination, however she has end-stage renal disease and very limited urine production. She states that she may urinate once every day or 2 days. The patient states that she was hospitalized last month at [facility] for possible infection. Records obtained from [facility] did not indicate what type of infection or ongoing antibiotic therapies. Records obtained from [facility] also failed to reveal ongoing need for antibiotics. Records will be obtained from snowmaker Dr. Pelaez to determine need for vancomycin and Zosyn. Review of Systems: A comprehensive review of systems and all are negative except for what is included in the history of present illness. PMH Past Medical History End-stage renal disease on dialysis Sunday diabetes mellitus type II Morbid obesity Obstructive sleep apnea Hypertension Hyperlipidemia History of NSTEMI in July 2015 Chronic atrial fibrillation the patient was previously on warfarin per records from [facility] appeared to indicate she is no longer on warfarin due to erratic INRs GERD Restless leg syndrome Severe aortic stenosis COPD Depression Cervical cancer Gout Bedside Blood Glucose: 108 Surgical History LEEP for cervical cancer Tonsillectomy Left sided dialysis fistula Home Medications Acetaminophen Albuterol Allopurinol Amitriptyline Baby aspirin Atorvastatin Cardizem Combivent Crestor Furosemide Lantus Levaquin Metoprolol succinate ER Midodrine NovoLog Omeprazole Oxycodone Pro-air Ropinirole Spironolactone Venlafaxine Warfarin Zyrtec Allergies: Coded Allergies: metformin (Verified Adverse Reaction, Severe, itching, 12/12/16) sulfamethoxazole (Verified Adverse Reaction, Severe, Nausea, 04/17/16) trimethoprim (Verified Adverse Reaction, Severe, Nausea, 04/17/16) Uncoded Allergies: COUGH SYRUPS (Allergy, Unknown, UNKNOWN, 11/24/15) TETANUS (Allergy, Unknown, UNKNOWN, 11/24/15) Family History Family History Family history of diabetes Social History Hx Alcohol Use: NoHx Substance Use: NoHx Tobacco Use: Yes Smoking Status: Former Smoker Living Arrangement: Intermediate Facility ([facility]) Exam Vital Signs Vital Sign - Last Date Time Temp Pulse Resp B/P Pulse Ox O2 Delivery O2 Flow Rate FiO2 08/21/16 16:48 38.7 89 22 166/65 100 Nasal Cannula 0.50 Intake and Output 08/20/16 08/20/16 08/21/16 Cumulative From/Thru 15:00 23:00 07:00 08/20/16 23:52 - 08/21/16 05:20 Intake Total 139 ml 139 ml Balance 139 ml 139 ml IV Total 139 ml 139 ml Additional Information: General: Morbidly obese female in no acute distress Alert however mildly somnolent and Cooperative Eyes: PERRLA, Scleral Anicteric, noninjected pale conjunctiva HENT: Normocephalic atraumatic, Mucous Membranes moist without central cyanosis or cobblestoning mucosa Neck: Supple, no Thyromegaly, trachea central, no JVD however difficult to assess given body habitus Chest & Lungs: decreased breathe sounds at bases Cardiovascular: Irregularly irregular with systolic ejection murmur consistent with aortic stenosis, Abdomen: Soft, Non-tender, Non-distended, Normoactive bowel tones. Musculoskeletal: Unremarkable. Normal range of motion, no swollen or erythematous joints Extremities: Pulses intact bilaterally at the radial and dorsalis pedis, No edema, no cyanosis, no clubbing. Skin: No rashes. Warm and dry, no erythematous areas Neurological: Notable right Psych: Normal mood and affect Lab and Diagnostics Result Diagram: 08/21/1662408/21/16624 X-Rays, CTs and MRIs X-RAY CHEST ONE VIEW, PORTABLE IMPRESSION: 1. Bibasilar atelectasis versus aspiration or pneumonia. Correlate clinically. Dictated by: Isidro LIZARRAGA Interpreted: Romario Sweeney MD on 08/21/2016 at 8:01 Transcribed by: GEREMIAS on 08/21/2016 at 8:02 Approved by: Romario Sweeney M.D. on 08/21/2016 at 9:07 Assessment & Plan Assessment 66-year-old female with past medical history remarkable for end-stage renal disease on dialysis secondary to long-standing type II diabetes mellitus as well as severe aortic stenosis presents with fever, cough and sore throat. 1. End-stage renal disease - Secondary to long-standing type II diabetes mellitus - Patient is hemodialysis dependent followed by snowmaker Dr. Pelaez - Continue regular hemodialysis Sunday - Obtain records from snowmaker Dr. Pelaez to see if she has been giving vancomycin injections for a possible MRSA infection not described in [facility] records obtained in chart - Phosphorous level ordered continue Renvela 1600 mg 3 times a day - Pharmacy to adjust medications based off of renal dosing and dialysis - Furosemide 80 mg daily likely will not produce much urine, will consider increasing or discontinuing entirely 2. Possible Healthcare acquired pneumonia - Fever of 38.8, increased oxygen requirements with O2 sat 91% at admission, Mild elevation in procalcitonin, x-rays reveal possible pneumonia, history obtained positive for cough with productive yellow sputum - Records obtained from [facility] do not indicate an underlying infection and records obtained from [facility] also do not indicate antibiotics being given - Obtain records from snowmaker Dr. Pelaez to see if she is receiving antibiotics with dialysis - Pharmacy to dose vancomycin around dialysis - Continue Zosyn 3. Normocytic normochromic Anemia - 1 dose of darbepoetin 60 g given 4. History of hypertension - Continue Midodrine 10 twice a day - Metoprolol 50 twice a day Problems: Pain Evaluation: Adequate Pain Control GI Prophylaxis: Proton Pump Inhibitor VTE Prophylaxis Indicated: Meets Criteria for Anticoag Therapy VTE Prophylaxis: Sub-Q Heparin (Unfractionated) VTE Mechanical Devices: Intermittant Pneumatic CD Resuscitation Status: CPR: Attempt Resuscitation Dwaine Valle DO Aug 21, 2016 17:39
[2016-08-21] MEDS: Piperacillin-Tazo 3.375 Gm Inj 3.375 GM in Dextrose 5% Minibag Plus 50 ML IV SCH (19:27)
[2016-08-22] VITALS (17 sets, daily range): BP systolic 110–164; BP diastolic 55–72; PULSE 63–85; RESP 18–20; O2SAT 82–99
[2016-08-22] MEDS: Albuterol-Ipratropium 3 mL Inhalation Solution NEB SCH ×6 (05:01→23:51)
--- NOTE | 2016-08-22 05:27 | NUR ---
Mental status/SOB,O2 Titration/Fever Pt remains somnolent during the shift, wake up by voice and light stimulation at evening. RT reviewed ABG done yesterday,Pco2 44.3 WNL, RT not considered somnolence caused by CO2 retention. Pt was on O2 0.5l, SPO2 at low 90s at beginning of the shift, trial out turned off O2 at late evening by RT, pt desat to lowest 82 briefly and intermittently on RA while SHOP SERVICE TECHNICIAN monitoring. O2 0.5L reapplied while diligently monitoring and carefully titrate O2 between RA-0.5L. SPO2 mostly 91-94% on O2 0.5l, sometimes bump up to 98,99%,subsequently turn O2 off, SPO2 92-94% on RA most of times. When desat to 81% again on RA this am, placed O2 0.5 L back. Pt found difficulty arousal around 0130, open eyes by calling her name loudly,does not answer questions, response to sternal rub with "ow". RN not sure mental status change is due to pt sleeping hard or pathological. head waiter Luciano Temple informed and checked pt and he was not concerned. Pt progresses mentally more clear overtime, answer questions properly, appears oriented to place and RN name. Fever 39.1 at late evening, Tylenol 650mg administered, Fever gradually down to 37.2.
[2016-08-22 05:46] LABS: BASOPHILS % (AUTO) 0.2 % (0-3); EOSINOPHILS % (AUTO) 0.7 % (0-5); MONOCYTES % (AUTO) 11.3 % (4-12); Mean Corpuscular Volume 100.4 fL (81-100); NEUTROPHILS % (AUTO) 55.7 % (40-74); Platelet Count 129 bil/L (150-400)
[2016-08-22 06:14] LABS: Magnesium 1.9 mg/dL (1.6-2.6); Phosphorus 4.6 mg/dL (2.5-4.9)
--- NOTE | 2016-08-22 06:45 | NUR ---
Critical measure: Cr 6.49. ESRD dialysis pt. Dr. Donaldson paged within 30min after result received.
[2016-08-22] MEDS: Insulin LISPRO 300 Unit/3 mL Inj SUBQ SCH ×4 (08:00→21:52)
[2016-08-22] MEDS: Piperacillin-Tazo 3.375 Gm Inj 3.375 GM in Dextrose 5% Minibag Plus 50 ML IV SCH ×2 (08:21→17:39)
[2016-08-22] MEDS: Vancomycin Dose per Pharmacist XX SCH (08:30)
[2016-08-22] MEDS: Pantoprazole 40 mg ER24 Tablet PO SCH (09:52)
[2016-08-22] MEDS: Heparin 5,000 Unit/mL Inj SUBQ SCH ×2 (09:53→21:51)
--- NOTE | 2016-08-22 10:29 | PCM.PHAPRO ---
Progress Fever WARFARIN DOSING PER PHARMACY (day) 1 2 RPh DFF DFF Date Aug 22-Aug INR 1 1 INR change Warf Dose 5 5 A/P -Subtheraperitic INR following warfarin restart. No s/s of bleeding. -Will continue warfarin 5 mg tonight. -Pharmacy will continue to monitor. Kuldeep Nino, PharmD Kuldeep Nino Aug 22, 2016 10:29
--- NOTE | 2016-08-22 11:00 | NUR ---
Bed/Pressure ulcers P500 bed ordered for patient but pt unable to fit comfortably on bed. Was attempting P500 bed for patient's pressure ulcers on bottom. Will reposition pt q2h.
--- NOTE | 2016-08-22 11:10 | PCM.PNMED ---
Subjective Date of Service Aug 22, 2016 Subjective Patient tolerated dialysis well yesterday although intermittently patient was confused and somnolent patient was hypoxic intermittently down to mid 80s, allowed permissive hypercapnia although pCO2 was 44 on ABG pt stated that she was not diagnosed with COPD, not a smoker, no PFT done, has used nebs bid as needed for 1-2yrs. This morning patient was alert and orientedx3, looked more comfortable MRSA swab came back positive Culture grew gram-negative rods viral PCR was positive for parainfluenza type4 Exam Vital Signs Vital Sign - Last Date Time Temp Pulse Resp B/P Pulse Ox O2 Delivery O2 Flow Rate FiO2 08/22/16 10:49 36.8 64 18 164/65 94 Nasal Cannula 0.50 Intake and Output 08/21/16 08/21/16 08/22/16 Cumulative From/Thru 15:00 23:00 07:00 08/20/16 23:52 - 08/22/16 04:59 Intake Total 0 ml 200 ml 696 ml 1035 ml Output Total 0 ml 900 ml 900 ml Balance 0 ml -700 ml 696 ml 135 ml Intake Oral 0 ml 200 ml 200 ml IV Total 696 ml 835 ml Output Urine Total 0 ml 0 ml 0 ml Ultrafiltrate 900 ml 900 ml # Bowel Movements 0 0 Exam NAD, comfortably laying down on the bed no JVD, MMM, no LAD RRR, nl s1, s2 no mrg CTAB, no w,c S,ND,NT,normoactive BS+ warm, no edema, pulses 2/2 RUE: thrills+ IVs and Medications Medications Reviewed: Medications were reviewed in detail Lab and Diagnostics Result Diagram: 08/22/1652708/22/16527 X-Rays, CTs and MRIs PROCEDURE: X-RAY CHEST ONE VIEW, PORTABLE ([id number]) INDICATIONS: sepsis TECHNIQUE: One view of the chest was acquired. COMPARISON: [facility], CR, XR CHEST 2VW, 03/07/2016, 15:23. [facility], CR, CHEST 1 VIEW, 07/11/2016, 17:23. FINDINGS: Surgical changes and devices: None. Lungs and pleura: Lung volumes are low and there is medial bibasilar airspace opacity present likely atelectasis. No pneumothorax. Right hemidiaphragm is elevated. Mediastinum: Mediastinal contours appear normal. Heart size is normal. Bones and chest wall: No suspicious bony lesions. Overlying soft tissues appear unremarkable. IMPRESSION: 1. Bibasilar atelectasis versus aspiration or pneumonia. Correlate clinically. Dictated by: Isidro Alexander RRA Interpreted: Romario Sweeney MD on 08/21/2016 at 8:01 Transcribed by: GEREMIAS on 08/21/2016 at 8:02 Approved by: Romario Sweeney M.D. on 08/21/2016 at 9:07 Assessment & Plan Patricia Plaza is a 66 y.o. female with ESRD on hemodialysis, Diabetes, Coronary artery Disease with Severe Aortic stenosis, Obesity who presents to [facility] Emergency department via EMS from [facility] c/o a fever acute, active #Acute respiratory failure, POA, likely in the setting of sepsis with HCAP, viral PNA, probable underlying obstructive lung dz -will target >95% with O2 supplement given improvement of MS as sepsis clears, unremarkable Bicarb, pt unlikely had CO2 narcosis -droplet precaution given parainfluenza+ #sepsis, POA, with documented positive cultures+variable gram neg rods, MRSA swab positive, parainflueza+ on PCR, hypoxic, but lactate being normal, procalcitonin relatively high. possible primary source: PNA, known MRSA infection -pt clinically improving with current tx -abx as below -gentle bolus NS 250-500cc if MAP<65 -monitor MS closely given no good indication of tissue hypoperfusion as ESRD pt -awaits final culture results, strep/legionella -appreciate ID input, continue vanc, zosyn, awaiting full records from [facility] -trends fever curve, procal, wbc #acute encephalopathy, POA, somnolence likely in the setting of sepsis,probable equilibrium syndrome, probable CO2 narcosis -wax and wane but resolved today, will continue to monitor MS chronic, stable, resolved #Elevated troponin. Present on admission, likely demand ischemia, asymptomatic, troponins plateaued #Endstage Renal disease on hemodialysis due to Diabetic Nephropathy and Hypertensive Nephrosclerosis. Scheduled for dialysis on Sunday, Sunday and Sunday, continue HD as scheduled. #Chronic Atrial Fibrillation on Chronic anticoagulations, monitor on telemetry, continue Cardizem for rate [id number] mg daily, also on Metoprolol 25 mg daily, verify with previous records to resume Coumadin or not, INR1.0 inidicated pt was not on recently. #Diabetes Type 2 with neuropathy, continue low correction Lispro algorithm, a1c7.4, glc in target. #Severe Aortic Stenosis, Patient recommended for TAVR procedure at [facility], repeat TTE 08/21 showed no chg. #Coronary artery disease, continue Aspirin for antiplatelet therapy #hypertension with hypotensive issues, continuing Midodrine as scheduled # Morbid Obesity with Obstructive Sleep apnea, continue CPAP at night #Depression, Anxiety with Restless Leg Syndrome, Presumed stable, continue Ropinirole, Venlafaxine and Amitriptyline GI Prophylaxis: Proton Pump Inhibitor VTE Prophylaxis: Sub-Q Heparin (Unfractionated) VTE Mechanical Devices: Intermittant Pneumatic CD Resuscitation Status: CPR: Attempt Resuscitation Time spent 35 minutes Danika Blair MD Aug 22, 2016 10:53
--- NOTE | 2016-08-22 12:03 | NUR ---
Social Work Note - Initial Assessment: D/A: See Initial Assessment. The Pt is a 66 y/o female that was admitted for pneumonia, CRF. Readmisison Risk Score 7. The Pt's PCP is MD Gregorio Mcdonald and her primary insurance is Medicare with a [facility] supplement, no LTC or VA benefits reported. EMR reviewed. BHUPINDER met with the Pt at bedside to explain role and discuss discharge planning, BHUPINDER telephone number written on white board. The Pt lives at home in [place] with her brother and daughter who assist with her ADLs such as cooking and cleaning. The Pt does not have an Advanced Directive, paperwork given. Pt uses a FWW and does not drive. The Pt reports that her family assists with transportation and help into and out of her home. Pt reports that her family is looking into a ramp for the home. Pt stated that she is open with [facility]. The Pt was sent to [facility] via EMS from [facility] where she has been for about one month for rehabilitation. No other reported SNF history. ID following, see note. Nephrology and Wound Care also consulted, see notes when available. The Pt is currently on a M-W- dialysis schedule. BHUPINDER received message from RN regarding call from Nara at [facility] in [place] [phone]. BHUPINDER t/c to Nara, reports that the Pt was seen for dialysis at their facility in [place] prior to her stay at [facility]. While at [facility], the Pt was receiving dialysis from [facility] in [place]. BHUPINDER informed Nara that the Pt will likely be hospitalized for a few more days, discharge plan in evolving. SW to contact Nara when concrete discharge plan has been established. Nara informed BHUPINDER that the Pt may be out of eligible days for SNF stay, SW to follow. RONY explored with the Pt, Pt declining these services at this time. SW will continue to follow. P: The Pt is not medically stable for discharge, will likely discharge in 3-4 days. SW following for further needs. ID, Nephrology, and Wound Care involved. SW will continue to follow. GRANT Banegas Falsework Builder Addendum: 08/22/16 at 1325 by KYLE TAYLOR SS Amended: Links added. Addendum: 08/23/16 at 1654 by MILKA MIJARES SS SW has reviewed note. Milka Mijares,STRIP TANK TENDER
[2016-08-22] MEDS: Nystatin 100,000 Unit/Gm 15 Gm Powder TOPICAL SCH ×2 (12:16→21:51)
[2016-08-22] MEDS: Venlafaxine XR 75 mg ER24 Capsule PO SCH (12:16)
--- NOTE | 2016-08-22 14:10 | PCM.PNNEPH ---
Dwaine Valle DO 08/22/16 1410: Subjective Date of Service Aug 22, 2016 Subjective Patient states that she feels better today. She forgot that she was having left side pain the day before. The patient continued to have difficulty with breathing and a sore throat. The nurse states that she has sent a sputum sample for culture. Exam Vital Signs Vital Sign - Last Date Time Temp Pulse Resp B/P Pulse Ox O2 Delivery O2 Flow Rate FiO2 08/22/16 12:20 95 Nasal Cannula 2.00 08/22/16 11:53 79 20 08/22/16 10:49 36.8 164/65 Intake and Output 08/21/16 08/21/16 08/22/16 Cumulative From/Thru 15:00 23:00 07:00 08/20/16 23:52 - 08/22/16 04:59 Intake Total 0 ml 200 ml 696 ml 1035 ml Output Total 0 ml 900 ml 900 ml Balance 0 ml -700 ml 696 ml 135 ml Intake Oral 0 ml 200 ml 200 ml IV Total 696 ml 835 ml Output Urine Total 0 ml 0 ml 0 ml Ultrafiltrate 900 ml 900 ml # Bowel Movements 0 0 Exam General: Morbidly obese female in no acute distress alert and Cooperative Eyes: PERRLA, Scleral Anicteric, noninjected pale conjunctiva HENT: Normocephalic atraumatic, Mucous Membranes moist without central cyanosis or cobblestoning mucosa Neck: Supple, no Thyromegaly, trachea central, no JVD however difficult to assess given body habitus Chest & Lungs: decreased breathe sounds at bases Cardiovascular: Irregularly irregular with systolic ejection murmur consistent with aortic stenosis, Abdomen: Soft, Non-tender, Non-distended, Normoactive bowel tones. Musculoskeletal: Unremarkable. Normal range of motion, no swollen or erythematous joints Extremities: Pulses intact bilaterally at the radial and dorsalis pedis, No edema, no cyanosis, no clubbing. Skin: No rashes. Warm and dry Neurological: Notable right Psych: Normal mood and affect Lab and Diagnostics Result Diagram: 08/22/1652708/22/16527 X-Rays, CTs and MRIs PROCEDURE: X-RAY CHEST ONE VIEW, PORTABLE ([id number]) INDICATIONS: sepsis TECHNIQUE: One view of the chest was acquired. COMPARISON: [facility], CR, XR CHEST 2VW, 03/07/2016, 15:23. [facility], CR, CHEST 1 VIEW, 07/11/2016, 17:23. FINDINGS: Surgical changes and devices: None. Lungs and pleura: Lung volumes are low and there is medial bibasilar airspace opacity present likely atelectasis. No pneumothorax. Right hemidiaphragm is elevated. Mediastinum: Mediastinal contours appear normal. Heart size is normal. Bones and chest wall: No suspicious bony lesions. Overlying soft tissues appear unremarkable. IMPRESSION: 1. Bibasilar atelectasis versus aspiration or pneumonia. Correlate clinically. Dictated by: Isidro Alexander RRA Interpreted: Romario Sweeney MD on 08/21/2016 at 8:01 Transcribed by: GEREMIAS on 08/21/2016 at 8:02 Approved by: Romario Sweeney M.D. on 08/21/2016 at 9:07 Plan Impression 1. End-stage renal disease 2. Possible Healthcare acquired pneumonia 3. Normocytic normochromic Anemia 4. History of hypertension Plan: 66-year-old female with past medical history remarkable for end-stage renal disease on dialysis secondary to long-standing type II diabetes mellitus as well as severe aortic stenosis presents with fever, cough and sore throat. 1. End-stage renal disease - Secondary to long-standing type II diabetes mellitus - Patient is hemodialysis dependent followed by lockstitch shoulder joiner Dr. Pelaez - Continue regular hemodialysis Sunday - Records obtained from lockstitch shoulder joiner Dr. Pelaez indicate that patient received a single dose of Vancomycin to completed a 10 day course of antibiotic treatment on July 20 - Phosphorous level ordered continue Renvela 1600 mg 3 times a day - Pharmacy to adjust medications based off of renal dosing and dialysis - Furosemide 80 mg daily likely will not produce much urine, will consider increasing or discontinuing entirely 2. Possible Healthcare acquired pneumonia - Fever of 38.8, increased oxygen requirements with O2 sat 91% at admission, Mild elevation in procalcitonin, x-rays reveal possible pneumonia, history obtained positive for cough with productive yellow sputum - Records obtained from [facility] do not indicate an underlying infection and records obtained from [facility] also do not indicate antibiotics being given - Records obtained from lockstitch shoulder joiner Dr. Pelaez indicate that patient received a single dose of Vancomycin to completed a 10 day course of antibiotic treatment on July 20 - Pharmacy to dose vancomycin around dialysis - Continue Zosyn - sputum sent for culture and sensitivity 3. Normocytic normochromic Anemia - secondary to ESRD - 1 dose of darbepoetin 60 g given 4. History of hypertension - Continue Midodrine 10 twice a day - Metoprolol 50 twice a day Jennifer Lozada MD 08/23/16 1209: Exam Lab and Diagnostics Result Diagram: 08/22/16 0528 08/22/16 0528 Dwaine Valle DO Aug 22, 2016 14:10 Jennifer Lozada MD Aug 23, 2016 12:09
--- NOTE | 2016-08-22 14:45 | PCM.PHAPRO ---
Progress Fever Pharmacy Kinetic Dosing Vancomycin Indication: MRSA septicemia Goal vanc trough: 15-20 mcg/ml Pt wt: 120 kg Dose: Vancomycin 2,000 mg given on 08/21 ESRD on HD Other ABX: Zosyn SCr: 6.49 WBC: 5.5; Last febrile 08/21@2355 Cultures: Blood pending; MRSA swab (+); viral PCR (+) for parainfluenza 4 Random vancomycin level (08/22): 25.7 Assessment/Plan: -No dose today given level >20. -HD planned for tomorrow (M,W,F schedule) -Will follow up with random level scheduled for tomorrow. Pharmacy appreciates consult and will continue to monitor. Thanks, Kuldeep Nino, PharmD Kuldeep Nino Aug 22, 2016 14:45
--- NOTE | 2016-08-22 15:27 | PROG NOTE ---
[address] [address] PROGRESS NOTE PATIENT: CHRIS COREA : 1950 MR#: [id number] ADMIT: 08/21/2016 JOB ID: [id number] DATE: 08/22/2016 INFECTIOUS DISEASE FOLLOWUP NOTE: REASON FOR FOLLOWUP: Fever with altered mental status in an elderly female with parainfluenza virus infection, as well as bacteremia. INTERVAL HISTORY: Overnight, the patient has felt perhaps slightly better overall but she noticed her breathing is quite difficult at times. She has no significant cough and denies fever or chills overnight. She does have some cough, which she reports has "loosened up" a bit. No acute GI pain. No nausea or vomiting, though she is having a headache today. PHYSICAL EXAMINATION: Reveals an afebrile woman. Temp 36.8, blood pressure 164/65, her pulse is 84, respiratory rate 20, she is saturating pretty well on just a low flow oxygen 1/2 to 2 L has been her rate. She is awake and alert today. Oral cavity without change. Lungs with very severe rhonchi bilaterally. The patient is quite tight. Cardiac tones: Regular rate and rhythm but distant. Abdomen obese, soft, nontender. Under the breast, the patient has diffuse erythema in a pattern that would be suggestive of either arlene or perhaps just warmth and moisture-induced erythema. The remainder of the exam is unremarkable. LABORATORIES: Include a white count of 5500, platelet count dropping and now 129. Creatinine 6.49 in this dialysis patient. LFT normal. Procalcitonin steady at 0.8 over numerous measurements which is probably relatively normal. Urinalysis without white cells. Vancomycin trough 25, and she is dosed intermittently, so that is okay. Urine legionella and urine pneumococcal antigens are negative. Sputum, moderate polys, normal jamil so far. Respiratory viral PCR panel positive for parainfluenza virus 4. MRSA screen of the nares positive, and 1/4 blood cultures is growing a gram-variable carin. IMPRESSION: This is a complicated elderly patient with multiple medical problems including, of course, end-stage renal disease and diabetes, as well as organic heart disease, aortic stenosis and morbid obesity. She was recently at [facility] in [place], where she was found to have sepsis with an abscess under her breast. The blood cultures there were negative but there were concerns about recurrent methicillin-resistant Staphylococcus aureus infection, so she was discharged home to complete additional IV vancomycin through about July 22 to complete 10 days of therapy. Yet, she was not bacteremic, as had been remembered yesterday. This admission occurred because the patient was [facility] because of fever, cough, poor appetite and possible mental status changes. It has become clear that her problems are largely respiratory, as we have one and possibly two ongoing infections. The patient clearly has parainfluenza virus type 4 viral infection, and we do have a positive blood culture, which suggests the possibility of a bacteremic infection, though it is unclear yet what this organism represents. Overnight, the patient might be a bit better, though her wheezing is, if anything, somewhat worse. RECOMMENDATIONS: 1. We await the identification of the organism in her blood. 2. The patient has been appropriately placed in droplet isolation. 3. We will start to cut back her antibiotics tomorrow once we find out the identity of the organism in the blood. 4. Additional bronchodilators may be indicated, given the severe degree of bronchospasm she is having right now.
--- NOTE | 2016-08-22 17:00 | NUR ---
Wound Care' Orders for wound evaluation received, patient seen at bedside. 66 yo female admitted for weakness to [facility] through ED, SNF resident with ESRD, dialysis 3 days/week. Pt in a bariatric air bed, excoriation at pannus and below breasts currently being treated with nystatin powder by nursing, small scratches at right muñiz are superficial and without signs of infection, these are covered with an adhesive foam dressing and can be changed PRN. Assessment of all caryl prominences reveal no pressure related skin issues.
--- NOTE | 2016-08-22 23:45 | NUR ---
Resp Pt has persistent cough following drinking water or eating. HOB at 90 degrees. Pt has end exp wheezes following coughing episodes. She currently is on 1 L oxygen. Denies shortness of breath. Will cont to monitor
[2016-08-23] VITALS (13 sets, daily range): BP systolic 109–174; BP diastolic 43–76; PULSE 62–85; RESP 16–22; O2SAT 95–100
--- NOTE | 2016-08-23 03:01 | NUR ---
Resp Pt continued to have a persistent dry cough that prevented sleep Notified MD. Hailee macias ordered and given. Pt is currently resting. Cough has decreased significantly.
[2016-08-23] MEDS: Albuterol-Ipratropium 3 mL Inhalation Solution NEB SCH ×5 (04:44→19:34)
[2016-08-23 05:29] LABS: BASOPHILS % (AUTO) 0.2 % (0-3); EOSINOPHILS % (AUTO) 3.6 % (0-5); MONOCYTES % (AUTO) 10.4 % (4-12); Mean Corpuscular Hemoglobin 29.9 pg (27.0-35.0); Mean Corpuscular Volume 99.3 fL (81-100); NEUTROPHILS % (AUTO) 59.4 % (40-74); Platelet Count 127 bil/L (150-400)
[2016-08-23 05:44] LABS: INR 1.13 ratio
[2016-08-23] MEDS: Piperacillin-Tazo 3.375 Gm Inj 3.375 GM in Dextrose 5% Minibag Plus 50 ML IV SCH ×2 (06:00→19:38)
[2016-08-23 06:03] LABS: Magnesium 1.8 mg/dL (1.6-2.6); Phosphorus 5.2 mg/dL (2.5-4.9)
[2016-08-23] MEDS ORDERED: Albuterol 2.5 mg/3 mL Inhalation Solution NEB PRN (07:20)
[2016-08-23] MEDS: Insulin LISPRO 300 Unit/3 mL Inj SUBQ SCH ×4 (08:00→21:18)
[2016-08-23] MEDS: Vancomycin Dose per Pharmacist XX SCH (08:30)
--- NOTE | 2016-08-23 09:01 | NUR ---
Verified that patient is a long-term care patient at [facility], per [employer].
--- NOTE | 2016-08-23 09:54 | NUR ---
Transferred to Dialysis Patient transferred to Dialysis at 0830.
--- NOTE | 2016-08-23 10:43 | PCM.PHAPRO ---
Progress Fever WARFARIN DOSING PER PHARMACY [facility] DFF DFF DFF Date Aug 22-Aug 23-Aug INR 1 1 1.13 INR change 0.13 Warf Dose 5 5 5 A/P -Day 3 of re-initiation of therapy. Will continue warfarin 5 mg today but will consider higher dose tomorrow if no significant change in INR is noted. No s/s of bleeding Kuldeep Nino PharmD Kuldeep Nino Aug 23, 2016 10:43
--- NOTE | 2016-08-23 10:51 | PCM.PNMED ---
Subjective Date of Service Aug 23, 2016 Subjective Patient remained clinically stable Alert and oriented x3 having persistent dry cough overnight, Tessalon Perles given denied SOB, sputum BCX showed Bacillus, not anthrax. Exam Vital Signs Vital Sign - Last Date Time Temp Pulse Resp B/P Pulse Ox O2 Delivery O2 Flow Rate FiO2 08/23/16 08:55 36.4 71 20 109/61 100 Nasal Cannula 1.00 Intake and Output 08/22/16 08/22/16 08/23/16 Cumulative From/Thru 15:00 23:00 07:00 08/20/16 23:52 - 08/23/16 06:22 Intake Total 252 ml 236 ml 356 ml 1879 ml Output Total 0 ml 0 ml 0 ml 900 ml Balance 252 ml 236 ml 356 ml 979 ml Intake Oral 100 ml 236 ml 200 ml 736 ml IV Total 152 ml 156 ml 1143 ml Output Urine Total 0 ml 0 ml 0 ml 0 ml Ultrafiltrate 900 ml # Bowel Movements 0 Exam NAD, comfortably laying down on the bed no JVD, MMM, no LAD RRR, nl s1, s2 no mrg mild scattered crackles S,ND,NT,normoactive BS+ warm, no edema, pulses 2/2 RUE: thrills+ IVs and Medications Medications Reviewed: Medications were reviewed in detail Lab and Diagnostics Result Diagram: 08/23/16 0520 08/23/16 0520 X-Rays, CTs and MRIs PROCEDURE: X-RAY CHEST ONE VIEW, PORTABLE ([id number]) INDICATIONS: sepsis TECHNIQUE: One view of the chest was acquired. COMPARISON: [facility], CR, XR CHEST 2VW, 03/07/2016, 15:23. [facility], CR, CHEST 1 VIEW, 07/11/2016, 17:23. FINDINGS: Surgical changes and devices: None. Lungs and pleura: Lung volumes are low and there is medial bibasilar airspace opacity present likely atelectasis. No pneumothorax. Right hemidiaphragm is elevated. Mediastinum: Mediastinal contours appear normal. Heart size is normal. Bones and chest wall: No suspicious bony lesions. Overlying soft tissues appear unremarkable. IMPRESSION: 1. Bibasilar atelectasis versus aspiration or pneumonia. Correlate clinically. Dictated by: Isidro LIZARRAGA Interpreted: Romario Sweeney MD on 08/21/2016 at 8:01 Transcribed by: GEREMIAS on 08/21/2016 at 8:02 Approved by: Romario Sweeney M.D. on 08/21/2016 at 9:07 Assessment & Plan Patricia Plaza is a 66 y.o. female with ESRD on hemodialysis, Diabetes, Coronary artery Disease with Severe Aortic stenosis, Obesity who presents to [facility] department via EMS from [facility] c/o a fever acute, active #Acute respiratory failure, POA, likely in the setting of sepsis with HCAP, viral PNA, probable underlying obstructive lung dz -will target >95% with O2 supplement given improvement of MS as sepsis clears, unremarkable Bicarb, pt unlikely had CO2 narcosis -droplet precaution given parainfluenza+ -duonebs q4hm, alb q2h prn, Tessalon Perles tid prn #sepsis, POA, with documented positive cultures+bacillus likely contamination, MRSA swab positive, parainflueza+ on PCR, hypoxic, but lactate being normal, procalcitonin relatively high. possible primary source: PNA, known MRSA infection -pt clinically improving with current tx -abx as below -gentle bolus NS 250-500cc if MAP<65 -monitor MS closely given no good indication of tissue hypoperfusion as ESRD pt -awaits final culture results, strep/legionella -appreciate ID input, continue vanc, zosyn, awaiting full records from [facility] -trends fever curve, procal, wbc chronic, stable, resolved #acute encephalopathy, POA, somnolence likely in the setting of sepsis,probable equilibrium syndrome, probable CO2 narcosis -resolved, will continue to monitor MS #Elevated troponin. Present on admission, likely demand ischemia, asymptomatic, troponins plateaued #Endstage Renal disease on hemodialysis due to Diabetic Nephropathy and Hypertensive Nephrosclerosis. Scheduled for dialysis on Sunday, Sunday and Sunday, continue HD as scheduled. #Chronic Atrial Fibrillation on Chronic anticoagulations, monitor on telemetry, continue Cardizem for rate [id number] mg daily, also on Metoprolol 25 mg daily, verify with previous records to resume Coumadin or not, INR1.0 inidicated pt was not on recently. #Diabetes Type 2 with neuropathy, continue low correction Lispro algorithm, a1c7.4, glc in target. #Severe Aortic Stenosis, Patient recommended for TAVR procedure at [facility], repeat TTE 08/21 showed no chg. #Coronary artery disease, continue Aspirin for antiplatelet therapy #hypertension with hypotensive issues, continuing Midodrine as scheduled # Morbid Obesity with Obstructive Sleep apnea, continue CPAP at night #Depression, Anxiety with Restless Leg Syndrome, Presumed stable, continue Ropinirole, Venlafaxine and Amitriptyline GI Prophylaxis: Proton Pump Inhibitor VTE Prophylaxis: Sub-Q Heparin (Unfractionated) VTE Mechanical Devices: Intermittant Pneumatic CD Resuscitation Status: CPR: Attempt Resuscitation Time spent 35min Danika Blair MD Aug 23, 2016 10:50
--- NOTE | 2016-08-23 10:53 | PCM.PHAPRO ---
Progress Fever VANCOMYCIN DOSING PER PHARMACY Random vanc level: 22.3 (08/23) Last dose: vancomycin 2000 mg given on 08/21/16 WBC: 5.8 Cultures: MRSA swab (+); parainfluenza 4 detected; Bacillis sp. found in blood ( sensi pending) ESRD on HD M/W/F A/P -Level still >20 but will receive HD today. Estimate level to be ~15.6 post-HD -Will not redose based on the above value and will follow up with random level tomorrow morning Kuldeep Nino, PharmD Kuldeep Nino Aug 23, 2016 10:45
--- NOTE | 2016-08-23 12:15 | PCM.PNNEPH ---
Subjective Date of Service Aug 23, 2016 Subjective Pt is seen during HD. feeling better, c/o dry mouth and sore throat. Exam Vital Signs Vital Sign - Last Date Time Temp Pulse Resp B/P Pulse Ox O2 Delivery O2 Flow Rate FiO2 08/23/16 11:01 65 08/23/16 08:55 36.4 20 109/61 100 Nasal Cannula 1.00 Intake and Output 08/22/16 08/22/16 08/23/16 Cumulative From/Thru 15:00 23:00 07:00 08/20/16 23:52 - 08/23/16 06:22 Intake Total 252 ml 236 ml 356 ml 1879 ml Output Total 0 ml 0 ml 0 ml 900 ml Balance 252 ml 236 ml 356 ml 979 ml Intake Oral 100 ml 236 ml 200 ml 736 ml IV Total 152 ml 156 ml 1143 ml Output Urine Total 0 ml 0 ml 0 ml 0 ml Ultrafiltrate 900 ml # Bowel Movements 0 Exam General: Morbidly obese female in no acute distress alert and Cooperative HEENT: Normocephalic atraumatic, dry mucous membrane, PERRLA, Scleral Anicteric , noninjected pale conjunctiva Neck: no JVD however difficult to assess given body habitus Lungs: Decreased BS at bases Cardiovascular: Irregularly irregular with systolic ejection murmur. Abdomen: Soft, Non-tender, Non-distended, Normoactive bowel tones. Extremities:No edema, no cyanosis, no clubbing, left AVF with good thrill and bruit. Lab and Diagnostics Result Diagram: 08/23/16 0520 08/23/16 0520 X-Rays, CTs and MRIs PROCEDURE: X-RAY CHEST ONE VIEW, PORTABLE ([id number]) INDICATIONS: sepsis TECHNIQUE: One view of the chest was acquired. COMPARISON: [facility], CR, XR CHEST 2VW, 03/07/2016, 15:23. [facility], CR, CHEST 1 VIEW, 07/11/2016, 17:23. FINDINGS: Surgical changes and devices: None. Lungs and pleura: Lung volumes are low and there is medial bibasilar airspace opacity present likely atelectasis. No pneumothorax. Right hemidiaphragm is elevated. Mediastinum: Mediastinal contours appear normal. Heart size is normal. Bones and chest wall: No suspicious bony lesions. Overlying soft tissues appear unremarkable. IMPRESSION: 1. Bibasilar atelectasis versus aspiration or pneumonia. Correlate clinically. Dictated by: Isidro Alexander RRA Interpreted: Romario Sweeney MD on 08/21/2016 at 8:01 Transcribed by: GEREMIAS on 08/21/2016 at 8:02 Approved by: Romario Sweeney M.D. on 08/21/2016 at 9:07 Plan Impression 1. End-stage renal disease. 4hr, UF 2-3L, DFR 600, BFR 400 2K, 35HCO3, revaclear, AVF. 2. Acute febrile illness. 3. Parainfluenza infection. 4. Suspected healthcare assoc PNA. 5. DM-2 with nephropathy. 6. HTN with hypertensive nephrosclerosis. 7. Anemia of CKD, s/p aranesp injection. Plan: Next HD on Sunday. Jennifer Lozada MD Aug 23, 2016 12:15
--- NOTE | 2016-08-23 12:26 | PROG NOTE ---
[address] [address] PROGRESS NOTE PATIENT: CHRIS COREA : 1950 MR#: [id number] ADMIT: 08/21/2016 JOB ID: [id number] DATE: 08/23/2016 REASON FOR FOLLOWUP: Pulmonary infection. INTERVAL HISTORY: Overnight, the patient has had no overt fevers, chills, or sweats. She reports her cough continues but perhaps less than yesterday. She is mildly short of breath and using nasal oxygen. No nausea, vomiting, diarrhea, or other new symptoms. PHYSICAL EXAMINATION: Reveals an afebrile woman. Temp 36.4, blood pressure 109/61, pulse around 70, respiratory rate in the low 20s on 1 L nasal cannula, saturating well on that. Mental status seems clear. She has a very flat affect, though, and appears depressed. Oral cavity negative. Lungs with some wheezing bilaterally. Cardiac tones: Regular rate and rhythm, distant. Abdomen: Obese soft, nontender. No new skin rash noted. LABORATORIES: Include a normal white count 5800, platelets dropping a bit at 127. Creatinine is 8.1, consistent with her dialysis situation. LFTs are normal. Procalcitonin is 0.8 x3, and I suspect this is normal for her given her dialysis and end-stage renal disease. Urinalysis was negative. Urine Legionella negative. Urine pneumococcal negative. Sputum had normal jamil. Urine culture negative. PCR positive for parainfluenza virus 4. Nose positive for MRSA. Blood cultures: One bottle was positive for gram variable carin which turns out to be a bacillus which is not anthrax and therefore almost certainly a contaminant. Chest x-ray showed bibasilar atelectasis versus pneumonia. IMPRESSION: This is a complicated morbidly obese, elderly woman who is on hemodialysis and has significant organic heart disease as well. She was recently at [facility] in [place] where she appeared septic and turned out to have methicillin-resistant Staphylococcus aureus soft tissue infection but negative blood cultures. She was treated with a course of vancomycin which has now been completed. The patient was admitted here because of fever, cough, and mental status changes. It is clear that she has parainfluenza virus 4 infection, and that may in fact be the entire total of her infections at this point. We have no compelling evidence of any bacterial infection, though she is, of course, colonized with methicillin-resistant Staphylococcus aureus both on her skin as we know from [facility] as well as in her nose. RECOMMENDATIONS: 1. I would continue with the vancomycin and Zosyn at least for one more day and will re-evaluate tomorrow, but if there is not more evidence of bacterial infection, I think we can start to wean back or perhaps just stop all the antibacterial agents, as I think the main thing going on here is the viral infection. 2. I would continue with the Bactroban for the nares to try and reduce her level of MRSA colonization. 3. Will continue to follow this complex patient with you.
--- NOTE | 2016-08-23 13:10 | NUR ---
Dialysis note: 4 hrs tx 3000 ml net UF MARILYN fistula Pls see DTR for VS details Qb 400 Heparin given O2 @ 2L via NC on during tx Tolerated tx Fistula needle sites clotted w/in 20 min Stable condition at end of tx Report given to Nichole ZHOU
[2016-08-23] MEDS: Venlafaxine XR 75 mg ER24 Capsule PO SCH (14:20)
[2016-08-23] MEDS: Pantoprazole 40 mg ER24 Tablet PO SCH (14:21)
[2016-08-23] MEDS: Heparin 5,000 Unit/mL Inj SUBQ SCH ×2 (14:22→20:30)
[2016-08-23] MEDS: Nystatin 100,000 Unit/Gm 15 Gm Powder TOPICAL SCH ×2 (14:22→21:26)
--- NOTE | 2016-08-23 17:18 | NUR ---
Refused Coumadin Patient refused 1700 dose of Coumadin due to what she states as more bleeding than usual in her fistula.
[2016-08-23] MEDS ORDERED: 0.9% Sodium Chloride 100 ML ONE (19:17)
[2016-08-23] MEDS: Mupirocin 2% 22 Gm Ointment NASAL SCH (21:26)
[2016-08-24] VITALS (14 sets, daily range): BP systolic 107–128; BP diastolic 45–62; PULSE 60–81; RESP 16–20; O2SAT 92–99
[2016-08-24] MEDS: Albuterol-Ipratropium 3 mL Inhalation Solution NEB SCH ×6 (00:17→21:31)
--- NOTE | 2016-08-24 03:44 | NUR ---
respiratory Tessalon pearles given x2 for a persistent, dry cough (pt c/o of almost "choking" her); with good relief. SpO2 remains in high 90s on RA. Bactroban applied to nares per order. On droplet precaution.
[2016-08-24 05:33] LABS: BASOPHILS % (AUTO) 0.2 % (0-3); EOSINOPHILS % (AUTO) 4.6 % (0-5); MONOCYTES % (AUTO) 9.3 % (4-12); Mean Corpuscular Hemoglobin 29.9 pg (27.0-35.0); Mean Corpuscular Volume 100.7 fL (81-100); NEUTROPHILS % (AUTO) 61.7 % (40-74); Platelet Count 139 bil/L (150-400)
[2016-08-24 05:53] LABS: INR 1.15 ratio
[2016-08-24 06:14] LABS: Magnesium 1.6 mg/dL (1.6-2.6)
[2016-08-24] MEDS: Piperacillin-Tazo 3.375 Gm Inj 3.375 GM in Dextrose 5% Minibag Plus 50 ML IV SCH ×2 (06:41→18:14)
[2016-08-24] MEDS: Insulin LISPRO 300 Unit/3 mL Inj SUBQ SCH ×4 (07:52→21:34)
[2016-08-24] MEDS: Pantoprazole 40 mg ER24 Tablet PO SCH (07:53)
[2016-08-24] MEDS ORDERED: Vancomycin Inj 500 MG in 0.9% Sodium Chloride 100 ML IV ONE (08:05)
[2016-08-24] MEDS: Venlafaxine XR 75 mg ER24 Capsule PO SCH (08:21)
[2016-08-24] MEDS: Heparin 5,000 Unit/mL Inj SUBQ SCH ×2 (08:22→21:33)
[2016-08-24] MEDS: Nystatin 100,000 Unit/Gm 15 Gm Powder TOPICAL SCH ×2 (08:27→21:33)
[2016-08-24] MEDS: Mupirocin 2% 22 Gm Ointment NASAL SCH ×2 (08:27→21:32)
[2016-08-24] MEDS: Vancomycin Dose per Pharmacist XX SCH (08:30)
--- NOTE | 2016-08-24 11:52 | PCM.PHAPRO ---
Progress Fever WARFARIN DOSING PER PHARMACY [facility] DFF DFF DFF DFF Date Aug 22-Aug 23-Aug 24-Aug INR 1 1 1.13 1.15 INR change 0.13 0.02 Warf Dose 5 5 5 7.5 A/P -Subtherapeutic INR. Day 4 of restart after unclear hx of whether warfarin therapy was received at [facility]. -Will increase dose to warfarin 7.5 mg this evening but therapy may be stopped today as attending reviews warfarin hx. Kuldeep Nino, PharmD Kuldeep Nino Aug 24, 2016 11:52
--- NOTE | 2016-08-24 14:38 | PCM.PNMED ---
Subjective Date of Service Aug 24, 2016 Subjective Patient looks more comfortable, denied any difficulty breathing Intermittently coughing, but significantly less Exam Vital Signs Vital Sign - Last Date Time Temp Pulse Resp B/P Pulse Ox O2 Delivery O2 Flow Rate FiO2 08/24/16 14:05 Room Air 08/24/16 13:09 36.6 60 19 121/50 94 08/23/16 14:15 2.00 Intake and Output 08/23/16 08/23/16 08/24/16 Cumulative From/Thru 15:00 23:00 07:00 08/20/16 23:52 - 08/24/16 05:57 Intake Total 737 ml 2616 ml Output Total 3000 ml 3900 ml Balance -3000 ml 737 ml -1284 ml Intake Oral 737 ml 1473 ml IV Total 1143 ml Output Urine Total 0 ml Ultrafiltrate 3000 ml 3900 ml # Voids 1 1 # Bowel Movements 1 1 Exam NAD, comfortably laying down on the bed no JVD, MMM, no LAD RRR, nl s1, s2 no mrg mild scattered crackles S,ND,NT,normoactive BS+ warm, no edema, pulses 2/2 RUE: thrills+ IVs and Medications Medications Reviewed: Medications were reviewed in detail Lab and Diagnostics Result Diagram: 08/24/1652408/24/16524 X-Rays, CTs and MRIs PROCEDURE: X-RAY CHEST ONE VIEW, PORTABLE ([id number]) INDICATIONS: sepsis TECHNIQUE: One view of the chest was acquired. COMPARISON: [facility], CR, XR CHEST 2VW, 03/07/2016, 15:23. [facility], , CHEST 1 VIEW, 07/11/2016, 17:23. FINDINGS: Surgical changes and devices: None. Lungs and pleura: Lung volumes are low and there is medial bibasilar airspace opacity present likely atelectasis. No pneumothorax. Right hemidiaphragm is elevated. Mediastinum: Mediastinal contours appear normal. Heart size is normal. Bones and chest wall: No suspicious bony lesions. Overlying soft tissues appear unremarkable. IMPRESSION: 1. Bibasilar atelectasis versus aspiration or pneumonia. Correlate clinically. Dictated by: Isidro Alexander RRRon Interpreted: Romario Sweeney MD on 08/21/2016 at 8:01 Transcribed by: GEREMIAS on 08/21/2016 at 8:02 Approved by: Romario Sweeney M.D. on 08/21/2016 at 9:07 Assessment & Plan Patricia Plaza is a 66 y.o. female with ESRD on hemodialysis, Diabetes, Coronary artery Disease with Severe Aortic stenosis, Obesity who presents to [facility] Emergency department via EMS from [facility] c/o a fever acute, active #Acute respiratory failure, POA, likely in the setting of sepsis with HCAP, viral PNA, probable underlying obstructive lung dz -will target >95% with O2 supplement given improvement of MS as sepsis clears, unremarkable Bicarb, pt unlikely had CO2 narcosis -droplet precaution given parainfluenza+ -duonebs q4hm, alb q2h prn, Tessalon Perles tid prn #sepsis, POA, with documented positive cultures+bacillus likely contamination, MRSA swab positive, parainflueza+ on PCR, hypoxic, but lactate being normal, procalcitonin relatively high. possible primary source: PNA, -pt clinically improving with current tx -abx as below -gentle bolus NS 250-500cc if MAP<65 -monitor MS closely given no good indication of tissue hypoperfusion as ESRD pt -infectious w/u BCX, ngtd, no bacterial infection yet. -appreciate ID input, continue vanc, zosyn, awaiting full records from [facility] -trends fever curve, procal, wbc chronic, stable, resolved #acute encephalopathy, POA, somnolence likely in the setting of sepsis,probable equilibrium syndrome, probable CO2 narcosis -resolved, will continue to monitor MS #Elevated troponin. Present on admission, likely demand ischemia, asymptomatic, troponins plateaued #Endstage Renal disease on hemodialysis due to Diabetic Nephropathy and Hypertensive Nephrosclerosis. Scheduled for dialysis on Sunday, Sunday and Sunday, continue HD as scheduled. #Chronic Atrial Fibrillation, monitor on telemetry, continue Cardizem for rate [id number] mg daily, also on Metoprolol 25 mg daily, from EMR per , pt was only on aspirin, would not resume Coumadin, will continue aspirin. #Diabetes Type 2 with neuropathy, continue low correction Lispro algorithm, a1c7.4, glc in target. #Severe Aortic Stenosis, Patient recommended for TAVR procedure at [facility], repeat TTE 08/21 showed no chg. #Coronary artery disease, continue Aspirin for antiplatelet therapy #hypertension with hypotensive issues, continuing Midodrine as scheduled # Morbid Obesity with Obstructive Sleep apnea, continue CPAP at night #Depression, Anxiety with Restless Leg Syndrome, Presumed stable, continue Ropinirole, Venlafaxine and Amitriptyline dispo: likely d/c in 1-2days given improvement of sx. [facility] half-way resident GI Prophylaxis: Proton Pump Inhibitor VTE Prophylaxis: Sub-Q Heparin (Unfractionated) VTE Mechanical Devices: Intermittant Pneumatic CD Resuscitation Status: CPR: Attempt Resuscitation Time spent 35min Danika Blair MD Aug 24, 2016 14:38
--- NOTE | 2016-08-24 15:23 | PROG NOTE ---
[address] [address] PROGRESS NOTE PATIENT: CHRIS COERA : 1950 MR#: [id number] ADMIT: 08/21/2016 JOB ID: [id number] DATE: 08/24/2016 INFECTIOUS DISEASE FOLLOWUP NOTE: REASON FOR FOLLOWUP: Viral pneumonia with MRSA colonization. INTERVAL HISTORY: The patient reports she is feeling steadily better. She denies fevers, chills, or sweats overnight. She notes her breathing and cough are much improved. She still has some periods of dry coughing paroxysms but basically respiratory situation seems back to baseline otherwise. She denies any GI symptoms, and is currently enjoying a healthy lunch. PHYSICAL EXAMINATION: Reveals an afebrile woman. Temp 36.6, pulse 60, respiratory rate 19, blood pressure 121/50, saturating well on room air. She is sitting up, smiling and having lunch. She states she feels very well. Oral cavity negative. Lungs: Relatively poor air movement bilaterally but no rales or rhonchi of significance are heard. Cardiac tones are distant but unchanged. Abdomen obese. LABORATORY STUDIES: Include white count 5200. Completely normal diff. Creatinine 4.39 in this dialysis patient. LFT are normal. Procalcitonin 0.8 x3, and I suspect this is normal given her renal function. Urine legionella and pneumococcal antigens are negative. Urine culture negative. Sputum culture negative. Nasopharyngeal PCR panel positive for parainfluenza virus #4. Blood cultures 1/4 grew bacillus and not anthrax. IMPRESSION: This patient seems to be doing extremely well and is clearly close to her baseline at this point. She was recently admitted to [facility] in [place], where she had a methicillin-resistant Staphylococcus aureus soft tissue infection. This time it appears that her problems are primarily due to the parainfluenza virus 4 infection, and I see little evidence for any other bacterial infection. Not surprisingly, she remains colonized with methicillin-resistant Staphylococcus aureus, as we know that from her recent [facility] admission. RECOMMENDATIONS: 1. We can go ahead and stop the vancomycin and Zosyn at this point, as I do not think there is any significant evidence of ongoing bacterial infection. 2. I would continue the Bactroban in the nares for a 10-day course. 3. We have no specific FDA-approved therapy for parainfluenza virus, though there is an experimental drug for critically ill cases which this patient certainly is not. 4. I think the patient can be discharged at any time. Infectious Disease will go ahead and sign off.
[2016-08-24] MEDS ORDERED: Warfarin 5 MG, Warfarin 2.5 MG PO ONE ×2 (17:00)
--- NOTE | 2016-08-24 18:53 | NUR ---
Uneventful Pt pleasant, worked with PT in room was able to ambulated around room, refused any further PT. Pt sat in bedside chair all day, A/O x 3, pleasant and cooperative with care. Denies SOB or pain, did express that sitting in chair was helping mobilize phlegm and was coughing a bit more. Pt resting comfortably in chair with call light within reach, bed is low and locked, intentional rounding.
[2016-08-25] VITALS (7 sets, daily range): BP systolic 118–137; BP diastolic 53–72; PULSE 60–77; RESP 16–20; O2SAT 98–99
[2016-08-25] MEDS: Albuterol-Ipratropium 3 mL Inhalation Solution NEB SCH ×4 (00:30→12:30)
[2016-08-25] MEDS: Piperacillin-Tazo 3.375 Gm Inj 3.375 GM in Dextrose 5% Minibag Plus 50 ML IV SCH (06:12)
[2016-08-25] MEDS ORDERED: 0.9% Sodium Chloride 100 ML ONE (06:13)
--- NOTE | 2016-08-25 07:07 | NUR ---
Respiratory Pt coughing intermittently, pt stating having nasal drainage. Pt stating able to cough up sputum but swallowed it. Medicated pt with tessalon pearls. Cough decreased after medication admin. Call light within reach, frequent rounding.
[2016-08-25] MEDS ORDERED: BENZ100C8 PO (07:29)
[2016-08-25] MEDS ORDERED: MUPI22OI2 NASAL (07:30)
[2016-08-25] MEDS: Pantoprazole 40 mg ER24 Tablet PO SCH (08:21)
[2016-08-25] MEDS: Venlafaxine XR 75 mg ER24 Capsule PO SCH (08:21)
[2016-08-25] MEDS: Insulin LISPRO 300 Unit/3 mL Inj SUBQ SCH ×2 (08:24→15:34)
--- NOTE | 2016-08-25 08:30 | NUR ---
Pt off to Dialysis Report called to ABELARDO Skinner on MOC. Tele notified, pt transported in bed. Heart medications held for later in shift.
--- NOTE | 2016-08-25 08:42 | NUR ---
Pt arrived to [facility]: Pt arrived [place] [facility] [place]. Report obtained form Tc ZHOU. Pt appears stable at time of transfer. bookletmobile aware of transfer. Addendum: 08/25/16 at 1333 by SHAD VARMA RN Pt returned to [facility]. Report given to primary nurse by dialysis nurse Manasa. Pt stable at time of transfer. bookletmobile aware of move.
[2016-08-25] MEDS ORDERED: ALBU8.5H2 INH (10:49)
[2016-08-25] MEDS ORDERED: IPRA4AER IH (10:49)
--- NOTE | 2016-08-25 11:06 | PCM.DIMED ---
Discharge Instructions Date of Service Aug 25, 2016 Dates of Hospitalization Aug 21, 2016 at 01:55 Discharge Diagnosis Discharge Diagnosis parainfluenza pneumonia Medication Instructions Please use Bactroban ointment to prevent colonization of MRSA at both nare Diet Renal Diet Activity No restrictions Call your provider Shortness of breath Patient Instructions You were hospitalized with difficulty of breathing, cough, found to have parainfluenza pneumonia. You were significantly improved with supportive treatment, stable to go back your place. Instruction for SNF Patient remained on Droplet precaution during hospitalization, however, since respiratory sx were minimal upon discharge, would not likely continue isolation , defer to the protocol at your facility Please note that pt is benefited from bronchodilators, techniques for inhalers were reviewed with patient as well. Given low suspicion for bacterial infection, all of the antibiotics were dropped prior to discharge, patient remained afebrile, clinically stable. Follow-up plan Please follow up with your doctor in 2weeks Follow-up Provider: Gregorio Mcdonald MD Follow-up with PCP in: 2 weeks Danika Blair MD Aug 25, 2016 11:00
--- NOTE | 2016-08-25 11:31 | PCM.PNNEPH ---
Subjective Date of Service Aug 25, 2016 Subjective seen during HD, stable, afebrile. (+) productive cough and sore throat. Exam Vital Signs Vital Sign - Last Date Time Temp Pulse Resp B/P Pulse Ox O2 Delivery O2 Flow Rate FiO2 08/25/16 08:51 63 08/25/16 07:51 16 98 Room Air 08/25/16 05:56 36.4 127/72 08/23/16 14:15 2.00 Intake and Output 08/24/16 08/24/16 08/25/16 Cumulative From/Thru 15:00 23:00 07:00 08/20/16 23:52 - 08/24/16 18:12 Intake Total 220 ml 670 ml 3506 ml Output Total 0 ml 3900 ml Balance 220 ml 670 ml -394 ml Intake Oral 150 ml 670 ml 2293 ml IV Total 70 ml 1213 ml Output Urine Total 0 ml 0 ml Ultrafiltrate 3900 ml # Voids 1 2 # Bowel Movements 0 1 Exam General: Morbidly obese female in no acute distress alert and Cooperative HEENT: Normocephalic atraumatic, PERRLA, Scleral Anicteric, noninjected pale conjunctiva Neck: no JVD however difficult to assess given body habitus Lungs: Decreased BS at bases. Cardiovascular: RRR, normal S1/S2. Abdomen: Soft, Non-tender, Non-distended, Normoactive bowel tones. Extremities:No edema, no cyanosis, no clubbing, left AVF with good thrill and bruit. Lab and Diagnostics Result Diagram: 08/24/16 0525 08/24/16 0525 X-Rays, CTs and MRIs PROCEDURE: X-RAY CHEST ONE VIEW, PORTABLE ([id number]) INDICATIONS: sepsis TECHNIQUE: One view of the chest was acquired. COMPARISON: [facility], CR, XR CHEST 2VW, 03/07/2016, 15:23. [facility], , CHEST 1 VIEW, 07/11/2016, 17:23. FINDINGS: Surgical changes and devices: None. Lungs and pleura: Lung volumes are low and there is medial bibasilar airspace opacity present likely atelectasis. No pneumothorax. Right hemidiaphragm is elevated. Mediastinum: Mediastinal contours appear normal. Heart size is normal. Bones and chest wall: No suspicious bony lesions. Overlying soft tissues appear unremarkable. IMPRESSION: 1. Bibasilar atelectasis versus aspiration or pneumonia. Correlate clinically. Dictated by: Isidro Alexander RRA Interpreted: Romario Sweeney MD on 08/21/2016 at 8:01 Transcribed by: GEREMIAS on 08/21/2016 at 8:02 Approved by: Romario Sweeney M.D. on 08/21/2016 at 9:07 Plan Impression 1. End-stage renal disease. 4hr, UF 3L, DFR 600, BFR 400 2K, 35HCO3, revaclear, AVF. 2. Acute febrile illness. 3. Parainfluenza infection. 4. Suspected healthcare assoc PNA. 5. DM-2 with nephropathy. 6. HTN with hypertensive nephrosclerosis. 7. Anemia of CKD, s/p aranesp injection. Plan: Next HD on Sunday. Follow ID recommendation. Jennifer Lozada MD Aug 25, 2016 11:30
--- NOTE | 2016-08-25 11:57 | NUR ---
Faxed orders to [facility] and they will transport after dialysis around 1500. Updated BRIDGE TENDER and RN
--- NOTE | 2016-08-25 13:20 | NUR ---
Dialysis note: 4 hrs tx 3000 ml net UF MARILYN fistula Pls see DTR for VS details Qb 400 Heparin prime given O2 @ 2L via NC on during tx Tolerated tx Fistula needle sites clotted w/in 10 min Stable condition at end of tx Report given to Андрей ZHOU
--- NOTE | 2016-08-25 13:45 | NUR ---
Pt back on floor from Dialysis. Report received from ABELARDO Skinner. No s/sx of distress.
--- NOTE | 2016-08-25 14:19 | NUR ---
Social Work: Discharge Data: Pt is on day 4 of hospitalization. EMR reviewed. ASSEMBLER DC FIELD YOKE spoke with pt regarding discharge plan of going back to [facility]. Pt states she would like to go home and not go back to [facility] at this time, she also states she has talked with her brother about this. ASSEMBLER DC FIELD YOKE called [facility] who states that pt is not a LTC pt as ASSEMBLER DC [employer] staff previously understood. PT met with pt on 08/24 and recommending home with HH services, but that pt declines HH. ASSEMBLER DC FIELD YOKE spoke with pt's brother, Patrick [phone], who states he can steel pickler pt around 4pm today and that he provides 24/7 care for her and transports her to dialysis. ASSEMBLER DC FIELD YOKE called [facility] at [phone] and let them know pt is discharging home with her brother and dialyzed today, they will discuss with pt and brother regarding dialysis schedule. ASSEMBLER DC FIELD YOKE spoke with pt regarding plan, she continues to decline HH at this time. ASSEMBLER DC FIELD YOKE updated ALLA, RN, , all updated and agreeable. Assessment: Pt with caregiving at baseline. Plan: Pt will d/c home via POV today with brother and will have dialysis with [facility]. No further d/c planning needs. GRANT Cruz
[2016-08-25] MEDS: Nystatin 100,000 Unit/Gm 15 Gm Powder TOPICAL SCH (15:29)
[2016-08-25] MEDS: Heparin 5,000 Unit/mL Inj SUBQ SCH (15:29)
[2016-08-25] MEDS: Mupirocin 2% 22 Gm Ointment NASAL SCH (15:31)
--- NOTE | 2016-08-25 16:43 | NUR ---
Discharge Reviewed discharge paperwork, care notes and medications with disclaimer signed. IV DCd intact, tele removed, all belongings with pt. RT paged for teaching on proper MDI technique. Escorted out of hospital via WC at 1655. Brother driving pt home.
--- NOTE | 2016-08-26 16:14 | PCM.DC.MED ---
Discharge Summary Date of Service Aug 25, 2016 Dates of Hospitalization Date of Hospital Admission Aug 21, 2016 at 01:55 Date of Discharge: Aug 25, 2016 Providers: Admitting Physician: Danny Falcon MD Primary Care Physician: Gregorio Mcdonald MD Attending Physician: Danny Falcon MD Diagnosis at Time of Discharge Diagnosis at Time of Discharge acute problems parainfluenza pneumonia Acute respiratory failure Probable sepsis chronic problems #acute encephalopathy, #Elevated troponin. likely demand ischemia #Endstage Renal disease on hemodialysis due to Diabetic Nephropathy and Hypertensive Nephrosclerosis. #Chronic Atrial Fibrillation, #Diabetes Type 2 with neuropathy, #Severe Aortic Stenosis, #Coronary artery disease, #hypertension with hypotensive issues, #Morbid Obesity with Obstructive Sleep apnea, #Depression, Anxiety with Restless Leg Syndrome, Presumed stable, Consultations Infectious disease Procedures XRay, CTs & MRIs PROCEDURE: X-RAY CHEST ONE VIEW, PORTABLE ([id number]) INDICATIONS: sepsis TECHNIQUE: One view of the chest was acquired. COMPARISON: [facility], CR, XR CHEST 2VW, 03/07/2016, 15:23. [facility], CR, CHEST 1 VIEW, 07/11/2016, 17:23. FINDINGS: Surgical changes and devices: None. Lungs and pleura: Lung volumes are low and there is medial bibasilar airspace opacity present likely atelectasis. No pneumothorax. Right hemidiaphragm is elevated. Mediastinum: Mediastinal contours appear normal. Heart size is normal. Bones and chest wall: No suspicious bony lesions. Overlying soft tissues appear unremarkable. IMPRESSION: 1. Bibasilar atelectasis versus aspiration or pneumonia. Correlate clinically. Dictated by: Isidro Alexander [facility] Interpreted: Romario Sweeney MD on 08/21/2016 at 8:01 Transcribed by: GEREMIAS on 08/21/2016 at 8:02 Approved by: Romario Sweeney M.D. on 08/21/2016 at 9:07 Brief History HPI obtained on 08/21 Nephrology consultation note Patricia Plaza 66yoF patient presents from [facility] with report of fever. Nephrology was consulted given the patient's ongoing end-stage renal disease with dialysis performed by Dr. Pelaez. The patient reports sore throat and productive cough with yellow sputum which is also produced when blowing her nose. She describes seasonal allergies which are year round. The patient denies substernal chest pain but does have some pain described as chronic in her left side. The patient denies any nausea or vomiting or constipation diarrhea at this time. She denies any difficulty with urination, however she has end-stage renal disease and very limited urine production. She states that she may urinate once every day or 2 days. The patient states that she was hospitalized last month at [facility] for possible infection. Records obtained from [facility] did not indicate what type of infection or ongoing antibiotic therapies. Records obtained from [facility] also failed to reveal ongoing need for antibiotics. Records will be obtained from wheelchair rental clerk Dr. Pelaez to determine need for vancomycin and Zosyn. Hospital Course Patricia Plaza is a 66 y.o. female with ESRD on hemodialysis, Diabetes, Coronary artery Disease with Severe Aortic stenosis, Obesity who presents to [facility] Emergency department via EMS from [employer] c/o a fever acute problems #Acute respiratory failure, on admission, patient looked toxic, suspected sepsis , patient was hypoxic intermittently but didn't require advanced airway. Respiratory PCR showed parainfluenza type4. Sputum culture didn't show any organism. Patient was on vancomycin given hx of MRSA, zosyn as well given he was living [place]. neb tx were continued. ID was consulted. Eventually all antibiotics were stopped given no strong evidence of bacterial infection. Respiratory status greatly improved upon discharge. #Probable sepsis, but not met SIRS criteria, lactate being normal, procalcitonin relatively high. suspected possible primary source was PNA, MRSA swab was positive, parainflueza+ on PCR. BCX showed documented positive cultures +bacillus likely contamination. chronic problems #acute encephalopathy, pt was initially somnolent likely metabolic with hypoxia , resolved as patient was clinically improved. #Elevated troponin. Present on admission, likely demand ischemia, asymptomatic, troponins plateaued #Endstage Renal disease on hemodialysis due to Diabetic Nephropathy and Hypertensive Nephrosclerosis. Scheduled for dialysis on Sunday, Sunday and Sunday, continued HD as scheduled. #Chronic Atrial Fibrillation, monitor on telemetry, continued Cardizem for rate [id number] mg daily, also on Metoprolol 25 mg daily, from EMR per , pt was only on aspirin, therefore Coumadin was not resumed, continued aspirin. #Diabetes Type 2 with neuropathy, continued low correction Lispro algorithm, a1c7.4, glc in target. #Severe Aortic Stenosis, Patient recommended for TAVR procedure at [facility], repeat TTE 08/21 showed no chg. #Coronary artery disease, continue Aspirin for antiplatelet therapy #hypertension with hypotensive issues, continuing Midodrine as scheduled # Morbid Obesity with Obstructive Sleep apnea, continue CPAP at night #Depression, Anxiety with Restless Leg Syndrome, Presumed stable, continue Ropinirole, Venlafaxine and Amitriptyline Exam Vital Signs (Last) Date Time Temp Pulse Resp B/P Pulse Ox O2 Delivery O2 Flow Rate FiO2 08/25/16 08:51 63 08/25/16 07:51 16 98 Room Air 08/25/16 05:56 36.4 127/72 08/23/16 14:15 2.00 Exam NAD, comfortably laying down on the bed no JVD, MMM, no LAD RRR, nl s1, s2 no mrg mild scattered crackles S,ND,NT,normoactive BS+ warm, no edema, pulses 2/2 RUE: thrills+ Test 08/20/16 23:47 08/20/16 23:48 08/21/16 00:17 08/21/16 08:35 Band Neutrophils % 1% (1-5) Hold Blue Top Tube Received (Received) Hemoglobin A1c 7.4% (4.8-5.6) Hold Purple Top Tube Received (Received) Lactic Acid Level 1.0mmol/L (0.4-2.0) Hepatitis B Surface Antibody Non reactive (.) Test 08/21/16 12:15 08/21/16 15:03 08/21/16 16:20 08/22/16 02:30 Hold [place] Top Tube Received (Received) Urine Color Yellow (YELLOW) Urine Appearance Hazy (CLEAR,HAZY) Urine pH 6.0 (5.0-8.0) Urine Specific [place] 1.015 (1.003-1.035) Urine Protein 300mg/dL (NEG,TRACE) Urine Glucose (UA) 100mg/dL (NEGATIVE) Urine Ketones Negativemg/dL (NEGATIVE) Urine Occult Blood Large (NEGATIVE) Urine Nitrite Negative (NEGATIVE) Urine Bilirubin Negative (NEGATIVE) Urine Urobilinogen Normalmg/dL (NORMAL) Urine Leukocyte Esterase Moderate (NEGATIVE) Urine RBC 3-10/hpf (0-2) Urine WBC 0-5/hpf (0-5) Urine Epithelial Cells Occasional/hpf (NONE-MOD) Urine Crystals Amorphous urates (NONE Urine Bacteria None/hpf (NONE-FEW) Urine Hyaline Casts None/lpf (NONE) Urine Granular Casts None seen (NONE SEEN) Urine Waxy Casts None seen (NONE SEEN) Urine Red Blood Cell Casts None seen (NONE SEEN) Urine White Blood Cell Casts None seen (NONE SEEN) Urine Mucus None seen (None Seen) Urine Trichomonas None seen (NONE SEEN) Urine Yeast None (NONE SEEN) Urinalysis Comment None Urine Culture Reflexed Indicated Troponin T 0.025ug/L (0.0-0.011) Urine Legionella pneumophilia Ag Negative (Negative) Test 08/22/16 05:28 08/24/16 05:25 08/25/16 05:57 Procalcitonin 0.79ng/mL (0.00-0.08) White Blood Count 5.2th/mm3 (3.8-10.1) Red Blood Count 2.81mil/mm3 (3.90-5.20) Hemoglobin 8.4g/dL (12.0-15.6) Hematocrit 28.3% (35.0-46.0) Mean Corpuscular Volume 100.7fL (81-100) Mean Corpuscular Hemoglobin 29.9pg (27.0-35.0) Mean Corpuscular Hemoglobin Concent 29.7% (32.0-37.0) Red Cell Distribution Width 15.1% (12.3-15.4) Platelet Count 139bil/L (150-400) Neutrophils (%) (Auto) 61.7% (40-74) Lymphocytes (%) (Auto) 23.8% (14-46) Monocytes (%) (Auto) 9.3% (4-12) Eosinophils (%) (Auto) 4.6% (0-5) Basophils (%) (Auto) 0.2% (0-3) Prothrombin Time 12.3sec (8.1-12.5) Prothromb Time International Ratio 1.15ratio Sodium Level 138mEq/L (134-144) Potassium Level 4.8mEq/L (3.5-5.2) Chloride Level 97mEq/L (97-108) Carbon Dioxide Level 25mmol/L (18-29) Blood Urea Nitrogen 22mg/dL (8-27) Creatinine 4.39mg/dL (0.57-1.00) Estimat Glomerular Filtration Rate 15mL/min (>59) Glucose Level 221mg/dL (60-99) Calcium Level 8.4mg/dL (8.5-10.1) Phosphorus Level 3.0mg/dL (2.5-4.9) Magnesium Level 1.6mg/dL (1.6-2.6) Total Bilirubin 0.3mg/dL (0.0-1.2) Aspartate Amino Transf (AST/SGOT) 21U/L (0-50) Alanine Aminotransferase (ALT/SGPT) 16U/L (0-32) Alkaline Phosphatase 118U/L (25-165) Total Protein 5.5g/dL (6.4-8.4) Albumin 3.3g/dL (3.4-5.0) Random Vancomycin Level 14.1ug/mL Rx Discharge Medications Discharge Medications Albuterol/Ipratropium (Combivent Respimat Inhal [place]) 120 Spr/4 Gm Inhaler 2 PUFF IH BID Prescribed by: DANIKA BERNAL MD Allopurinol (Allopurinol) 300 Mg Tablet 150 MG PO HS (Reported) Amitriptyline (Amitriptyline) 25 Mg Tab 50 MG PO HS (Reported) Ascorbate Calcium (Vitamin C) 500 Mg Tablet 500 PO DAILY (Reported) Aspirin (Aspirin) 81 Mg Tablet 81 MG PO DAILY (Reported) Atorvastatin (Lipitor) 20 Mg Tablet 20 MG PO DAILY (Reported) Cholecalciferol (Vitamin D3) (Vitamin D3) 400 Unit Tablet 400 UNIT PO DAILY ( Reported) Furosemide (Furosemide) 80 Mg Tab 80 MG PO DAILY (Reported) Insulin Glargine (Lantus U100 Solostar Insulin Pen) 100 Unit/1 Ml Insuln.pen 15 UNITS SUBQ HS (Reported) Metoprolol Tartrate (Metoprolol Tartrate) 50 Mg Tablet 25 MG PO BID Prescribed by: DANIKA BERNAL MD Midodrine (Midodrine) 5 Mg Tablet 10 MG PO BID (Reported) take on dialysis days Mupirocin (Mupirocin Ointment) 22 Gm Oint...g. 1 APPLIC NASAL BID Prescribed by: DANIKA BERNAL MD Omeprazole (Omeprazole) 20 Mg Tablet.dr 20 MG PO DAILY (Reported) Ropinirole (Ropinirole) 1 Mg Tablet 1 MG PO HS (Reported) Sevelamer Carbonate (Renvela) 800 Mg Tablet 1,600 PO TID (Reported) with meals Venlafaxine ER (Venlafaxine ER) 75 Mg Cap.er.24h 75 MG PO DAILY (Reported) take along with 150mg ER for a total daily dose of 225mg Venlafaxine ER (Venlafaxine ER) 150 Mg Cap.er.24h 150 MG PO DAILY (Reported) take along with 75mg ER for a total daily dose of 225mg As needed Acetaminophen (Acetaminophen) 500 Mg Tablet 500 MG PO Q6H PRN PRN For Pain ( Reported) Albuterol HFA (Proair HFA) 8.5 Gm Hfa.aer.ad 2 PUFF INH Q4H PRN PRN For Shortness of Breath Prescribed by: DANIKA BERNAL MD Benzonatate (Benzonatate) 100 Mg Capsule 100 MG PO TID PRN PRN For Cough Prescribed by: DANIKA BERNAL MD Cetirizine HCl (Zyrtec) 10 Mg Capsule 10 MG PO HS PRN PRN allergy Prescribed by: VIVIANE VEGA MD Insulin Aspart (NovoLOG U100 Insulin Vial) 100 U/Ml U 2-3 UNIT SUBQ TIDWM PRN PRN blood sugars (Reported) 2-3 UNITS 2 HOURS AFTER MEALS sliding scale based on blood sugar level Metoclopramide (Metoclopramide) 10 Mg Tablet 10 MG PO DAILY PRN PRN For Nausea/ Vomiting (Reported) Triamcinolone Acet (Triamcinolone Acetonide Cream) 1 Applic/0.25 Gm Cr 1 APPLIC TOP DAILY PRN PRN RASH (Reported) "TO PELVIC AREA WHEN NEEDED" oxyCODONE (oxyCODONE) 5 Mg Tablet 5 MG PO Q6H PRN PRN For Pain Prescribed by: VIVIANE VEGA MD Additional med instructions Please use Bactroban ointment to prevent colonization of MRSA at both nare Followup Plan Disposition: home Follow-up plan Please follow up with your doctor in 2weeks Discharge Diet: Renal Diet Discharge Activity: No restrictions Patient Instructions You were hospitalized with difficulty of breathing, cough, found to have parainfluenza pneumonia. You were significantly improved with supportive treatment, stable to go back your place. Instruction for SNF Patient remained on Droplet precaution during hospitalization, however, since respiratory sx were minimal upon discharge, would not likely continue isolation , defer to the protocol at your facility Please note that pt is benefited from bronchodilators, techniques for inhalers were reviewed with patient as well. Given low suspicion for bacterial infection, all of the antibiotics were dropped prior to discharge, patient remained afebrile, clinically stable. Follow-up Provider: Gregorio Mcdonald MD Follow-up with PCP in: 2 weeks Time spent 65min Danika Bernal MD Aug 25, 2016 15:38
== END 2016-08-25 16:54 | disposition home or self-care (01) | DRG 193 ==
LOC: SED 23:39 → MPC 08-21 01:55
PROVIDERS: ADMIT Hospitalist; ATTEND Hospitalist
PROC: 5A1D60Z (ICD-10-PCS; principal; 2016-08-21)
PROC: 4A033B1 Measurement of Arterial Pressure, Peripheral, Percutaneous Approach (ICD-10-PCS; 2016-08-21)
DX: J10.00 Influenza due to other identified influenza virus with unspecified type of pneumonia (principal); N18.6 End stage renal disease; G93.41 Metabolic encephalopathy; J96.00 Acute respiratory failure, unspecified whether with hypoxia or hypercapnia; I12.0 Hypertensive chronic kidney disease with stage 5 chronic kidney disease or end stage renal disease; E87.1 Hypo-osmolality and hyponatremia; Z68.43 Body mass index [BMI] 50.0-59.9, adult; E11.40 Type 2 diabetes mellitus with diabetic neuropathy, unspecified; G25.81 Restless legs syndrome; M10.9 Gout, unspecified; I48.2 Chronic atrial fibrillation; K21.9 Gastro-esophageal reflux disease without esophagitis; G47.33 Obstructive sleep apnea (adult) (pediatric); I35.0 Nonrheumatic aortic (valve) stenosis; I25.10 Atherosclerotic heart disease of native coronary artery without angina pectoris; E66.01 Morbid (severe) obesity due to excess calories; D63.1 Anemia in chronic kidney disease; F41.8 Other specified anxiety disorders; E11.21 Type 2 diabetes mellitus with diabetic nephropathy; Z87.891 Personal history of nicotine dependence; Z79.01 Long term (current) use of anticoagulants

== ENCOUNTER 2016-10-31 18:31 | Inpatient (IN) | payer MEDICARE, MEDICAID ==
[~2016-10-31] VITALS: Ht 152.4 cm; Wt 118.4 kg
[~2016-10-31 18:31] MED LIST changes: +BENZ100C8 PO; +MUPI22OI2 NASAL; +VENL150C98 PO
[2016-10-31] MEDS ORDERED: Polyethylene Glycol (PEG) 17 Gm Powder PO PRN (19:20)
[2016-10-31] MEDS ORDERED: Alum-Mag Hydrox-Simeth 30 mL Suspension PO PRN (19:20)
[2016-10-31] MEDS ORDERED: Ondansetron 2 mg/mL 2 mL Inj IVPUSH PRN (19:20)
[2016-10-31 19:39] VITALS: BP 152/74; PULSE 63; RESP 18; O2SAT 99
--- NOTE | 2016-10-31 19:45 | NUR ---
Direct Admit Pt arrived on unit #[id number] at apprx 1915 via EMT from [facility]. Report given by ABELARDO Moffett. Unable to transfer self to bed. Bed locked, low position. Call light within reach. Admit will be completed after pt returns from Dialysis.
--- NOTE | 2016-10-31 19:48 | NUR ---
OFF UNIT FOR DIALYSIS Pt transported to [facility] RM 244 bed #1 for Dialysis at apprx 1930.
[2016-10-31 20:30] LABS: BASOPHILS % (AUTO) 0.2 % (0-3); EOSINOPHILS % (AUTO) 2.8 % (0-5); MONOCYTES % (AUTO) 7.1 % (4-12); Mean Corpuscular Hemoglobin 29.3 pg (27.0-35.0); Mean Corpuscular Volume 92.7 fL (81-100); NEUTROPHILS % (AUTO) 66.3 % (40-74); Platelet Count 148 bil/L (150-400)
--- NOTE | 2016-10-31 21:55 | NUR ---
Dialysis note 2 hr HD tx 2000ml net UF removed 2 15 g needles to SYMONE fistula QB 500 Labs drawn See DTR for complete vitals trends Pt slept thru tx Sureseals/RN held post tx Report given and pt returned to floor stable.
--- NOTE | 2016-10-31 22:18 | PCM.HPMED ---
Subjective Date of Service Oct 31, 2016 Primary Provider: Admitting Physician: Kristofer Gibson MD Primary Care Physician: Gregorio Mcdonald MD Attending Physician: Kristofer Gibson MD Admit Status: From the Emergency Department Chief Complaint: missed dialysis, weakness History of Present Illness: 66yoF with past medical history of DM2, HTN, ESRD on HD, CHF and CAD with CC of weakness transferred from [facility] with findings of potassium of 8.4. Patient is a poor historian due to mild confusion and some fatigue. She states that she has been progressively weaker over the past week up until today when she couldn't get out of bed. Her brother came to her and asked her to get up but she found that she couldn't. She also hasn't been able to go to dialysis because of discomfort when sitting due to an abscess. This "abscess is located in the right groin area and continues to drain and now has increased pain. She also endorses a similar wound on her buttocks which also has become more problematic. When questioned patient isn't aware of left lower extremity erythema and warmth. More recently she has also had progressive difficulties with diarrhea and incontinence. Patient denies lightheadedness, dizziness but endorses fever, chills, and diarrhea. She doesn't make urine any longer. At [facility] patient as noted to have a potassium of 8.5 and was transferred for urgent dialysis. Medications received at OSH include albuterol, calcium gluconate, D50, furosemide, insulin and polystyrene sulfonate PCP: Dr. Mcdonald Resaw Machine Operator: Dr. Isaacs Review of Systems: complete review of systems obtained. positive as per hpi otherwise negative Allergies Coded Allergies: metformin (Verified Adverse Reaction, Severe, itching, 04/17/16) sulfamethoxazole (Verified Adverse Reaction, Severe, Nausea, 04/17/16) trimethoprim (Verified Adverse Reaction, Severe, Nausea, 04/17/16) Uncoded Allergies: COUGH SYRUPS (Allergy, Unknown, UNKNOWN, 11/24/15) TETANUS (Allergy, Unknown, UNKNOWN, 11/24/15) Home Medications discharge medications from 08/26 --- med rec pending on admission Discharge Medications Albuterol/Ipratropium (Combivent Respimat Inhal [place]) 120 Spr/4 Gm Inhaler 2 PUFF IH BID Prescribed by: BRUCE BERNAL MD Allopurinol (Allopurinol) 300 Mg Tablet 150 MG PO HS (Reported) Amitriptyline (Amitriptyline) 25 Mg Tab 50 MG PO HS (Reported) Ascorbate Calcium (Vitamin C) 500 Mg Tablet 500 PO DAILY (Reported) Aspirin (Aspirin) 81 Mg Tablet 81 MG PO DAILY (Reported) Atorvastatin (Lipitor) 20 Mg Tablet 20 MG PO DAILY (Reported) Cholecalciferol (Vitamin D3) (Vitamin D3) 400 Unit Tablet 400 UNIT PO DAILY ( Reported) Furosemide (Furosemide) 80 Mg Tab 80 MG PO DAILY (Reported) Insulin Glargine (Lantus U100 Solostar Insulin Pen) 100 Unit/1 Ml Insuln.pen 15 UNITS SUBQ HS (Reported) Metoprolol Tartrate (Metoprolol Tartrate) 50 Mg Tablet 25 MG PO BID Prescribed by: BRUCE BERNAL MD Midodrine (Midodrine) 5 Mg Tablet 10 MG PO BID (Reported) take on dialysis days Mupirocin (Mupirocin Ointment) 22 Gm Oint...g. 1 APPLIC NASAL BID Prescribed by: BRUCE BERNAL MD Omeprazole (Omeprazole) 20 Mg Tablet.dr 20 MG PO DAILY (Reported) Ropinirole (Ropinirole) 1 Mg Tablet 1 MG PO HS (Reported) Sevelamer Carbonate (Renvela) 800 Mg Tablet 1,600 PO TID (Reported) with meals Venlafaxine ER (Venlafaxine ER) 75 Mg Cap.er.24h 75 MG PO DAILY (Reported) take along with 150mg ER for a total daily dose of 225mg Venlafaxine ER (Venlafaxine ER) 150 Mg Cap.er.24h 150 MG PO DAILY (Reported) take along with 75mg ER for a total daily dose of 225mg As needed Acetaminophen (Acetaminophen) 500 Mg Tablet 500 MG PO Q6H PRN PRN For Pain ( Reported) Albuterol HFA (Proair HFA) 8.5 Gm Hfa.aer.ad 2 PUFF INH Q4H PRN PRN For Shortness of Breath Prescribed by: BRUCE BERNAL MD Benzonatate (Benzonatate) 100 Mg Capsule 100 MG PO TID PRN PRN For Cough Prescribed by: BRUCE BERNAL MD Cetirizine HCl (Zyrtec) 10 Mg Capsule 10 MG PO HS PRN PRN allergy Prescribed by: VIVIANE VEGA MD Insulin Aspart (NovoLOG U100 Insulin Vial) 100 U/Ml U 2-3 UNIT SUBQ TIDWM PRN PRN blood sugars (Reported) 2-3 UNITS 2 HOURS AFTER MEALS sliding scale based on blood sugar level Metoclopramide (Metoclopramide) 10 Mg Tablet 10 MG PO DAILY PRN PRN For Nausea/ Vomiting (Reported) Triamcinolone Acet (Triamcinolone Acetonide Cream) 1 Applic/0.25 Gm Cr 1 APPLIC TOP DAILY PRN PRN RASH (Reported) "TO PELVIC AREA WHEN NEEDED" oxyCODONE (oxyCODONE) 5 Mg Tablet 5 MG PO Q6H PRN PRN For Pain Prescribed by: VIVIANE VEGA MD Additional med instructions Please use Bactroban ointment to prevent colonization of MRSA at both nare PMH Type 2 diabetes with neuropathy End-stage renal disease, on dialysis, secondary to diabetes. Obstructive Sleep Apnea Morbid obesity. Hypertension. Hyperlipidemia. History of non-STEMI in July 2015 (Cath showed minimal epicardial coronary artery disease) Chronic Atrial Fibrillation on Coumadin GERD Restless Leg syndrome Severe Aortic Stenosis COPD Depression Cervical cancer Gout Surgical History Tonsillectomy Dialysis access placement Family History Positive for diabetes Social History Hx Alcohol Use: No Hx Substance Use: No Hx Tobacco Use: Yes Smoking Status: Former Smoker Exam Vital Signs Vital Sign - Last Date Time Temp Pulse Resp B/P Pulse Ox O2 Delivery O2 Flow Rate FiO2 10/31/16 19:39 36.3 63 18 152/74 99 Room Air Exam General: Alert, Oriented X3, Cooperative, no distress Eyes: PERRLA, Scleral Anicteric Mouth: Mouth Normal, Mucous Membranes Moist/[place] Neck: Supple, no Thyromegaly, trachea central. Chest & Lungs: CTA bilater Cardiovascular: Normal S1, Normal S2, No Rubs/Gallops, regular, distant (No JVD , no peripheral edema) Pulses: Radial (present and equal), Dorsalis Pedi (present and equal) Abdomen: Soft, Non-tender, obese, Normoactive bowel tones. Musculoskeletal: Unremarkable. Normal range of motion, no swollen or erythematous joints Extremities: trace pitting edema, excoriations noted, left lower extremity erythema increased warmth, no purulence Skin: as above, groin erythema, tenderness to palpation, macerated areas with increased erythema, warmth and tenderness, cyst-like region jaime area no obvious drainage Neurological: Grossly neurologically intact, has generalized weakness, Normal Speech, Sensation Intact Lymphatic: Lymph nodes Cervical and Axillary not palpable. Lab and Diagnostics Result Diagram: 10/31/16199910/31/161999 Cardiac Echo Impressions 08/2016 Interpretation Summary The left ventricle is normal in size. The ejection fraction is estimated to be 60-65%. There has been no significant change in LV EF since the previous study. The right ventricle is borderline dilated. The right ventricular systolic function is normal. There is severe aortic stenosis (Paradoxically low gradient). The calculated aortic valve area is 1.0 cm2.The aortic valve area is 0.9 centimeters squared by planimetry. The peak aortic velocity is 3.6 m/sec. The aortic valve mean gradient is 32 mmHg. The peak aortic velocity on the previous exam was 3.8 m/sec. There is mild aortic regurgitation. Compared to the prior echo study, there has been no change in the severity of aortic regurgitation. There is trace tricuspid regurgitation. The right ventricular systolic pressure is estimated at 39 mmHg assuming a right atrial pressure of 3 mm Hg. Assessment & Plan 66yoF with past medical history of DM2, HTN, ESRD on HD, CHF and CAD with CC of weakness transferred from [facility] with findings of potassium of 8.4. Hyperkalemia, acute, POA - missed dialysis x2, due to weakness, discomfort groin - transferred for urgent dialysis - nephrology consulted, recs appreciated Diarrhea, acute, POA -patient doesn't meet SIRS/Sepsis criteria -stool studies ordered and pending -monitor fluid status -will add empiric c. diff treatment with clinical decline, currently low suspicion Cellulitis, acute, POA -left lower extremity and groin area, no obvious abscess formation however difficult exam -patient doesn't meet SIRS/Sepsis criteria -will start piperacillin-tazobactam, nystatin powder for suspected yeast infection -MRSA screen ordered and pending Dyspnea, acute, POA -history of severe aortic stenosis, elevated bnp at OSH -concern for worsening CHF in the setting of missed dialysis -records reviewed. ECHO as above -repeat limited ECHO pending Normocytic anemia, unknown chronicity -no acute blood loss -secondary to renal dysfunction Endstage Renal disease on hemodialysis - Scheduled for dialysis on Sunday, Sunday and Sunday - nephrology consulted, dialysis immediately following admission Chronic Atrial Fibrillation on Chronic anticoagulations - monitor on telemetry - continue Cardizem for rate [id number] mg daily, also on Metoprolol 25 mg daily - med rec pending - checking INR, no bleeding, Pharmacy to dose Coumadin dose Diabetes Type 2 with neuropathy - low correction Lispro algorithm - checking A1c to gauge control - determine Lantus dosing and continue Severe Aortic Stenosis Patient recommended for T[facility]R procedure at [facility] Coronary artery disease - continue Aspirin for antiplatelet therapy Hypertension with hypotensive issues - continuing Midodrine as scheduled Morbid Obesity with Obstructive Sleep apnea - continue CPAP at night Depression, Anxiety with Restless Leg Syndrome Presumed stable - continue Ropinirole, Venlafaxine and Amitriptyline - Acetaminophen as needed for mild pain/fever/headache - Bowel regimen as needed - Antiemetic as needed Patient admitted under observation status with expected length of stay > 2 midnights for severity of present symptoms, complexities of treatment plan and risk for adverse event . Pain Evaluation: Adequate Pain Control GI Prophylaxis: Proton Pump Inhibitor VTE Prophylaxis: Sub-Q Heparin (Unfractionated) Resuscitation Status: CPR: Attempt Resuscitation Suzi Donaldson DO Oct 31, 2016 22:18
[2016-10-31 22:31] VITALS: PULSE 83
[2016-10-31] MEDS ORDERED: CLOT30SO TOPICAL (23:22)
[2016-10-31] MEDS ORDERED: METO25TA99 PO (23:22)
[2016-10-31] MEDS ORDERED: FURO40TA4 PO (23:22)
[2016-10-31 23:35] VITALS: BP 137/62; PULSE 80; RESP 18; O2SAT 96
[2016-11-01] VITALS (9 sets, daily range): BP systolic 109–142; BP diastolic 52–65; PULSE 74–96; RESP 18–20; O2SAT 94–98
[2016-11-01] MEDS ORDERED: Glucose 40% Oral Gel 15 Gm Tube PO PRN (00:15)
[2016-11-01] MEDS ORDERED: Albuterol 2.5 mg/3 mL Inhalation Solution NEB PRN (00:20)
[2016-11-01] MEDS ORDERED: Piperacillin-Tazo 3.375 Gm Inj 3.375 GM in Dextrose 5% Minibag Plus 50 ML IV ONE (00:30)
[2016-11-01] MEDS ORDERED: 0.9% Sodium Chloride 100 ML ONE (00:54)
[2016-11-01] MEDS: Nystatin 100,000 Unit/Gm 15 Gm Powder TOPICAL SCH ×3 (01:04→21:37)
[2016-11-01 05:55] LABS: BASOPHILS % (AUTO) 0.1 % (0-3); EOSINOPHILS % (AUTO) 0.4 % (0-5); MONOCYTES % (AUTO) 6.4 % (4-12); Mean Corpuscular Hemoglobin 28.9 pg (27.0-35.0); Mean Corpuscular Volume 93.8 fL (81-100); NEUTROPHILS % (AUTO) 85.8 % (40-74); Platelet Count 148 bil/L (150-400)
[2016-11-01] MEDS: Pantoprazole 40 mg ER24 Tablet PO SCH (06:30)
[2016-11-01] MEDS: Insulin LISPRO 300 Unit/3 mL Inj SUBQ SCH ×4 (07:42→21:38)
[2016-11-01] MEDS: Albuterol-Ipratropium 120 Spray 4 Gm Inhaler INHALATION SCH ×2 (07:52→21:37)
[2016-11-01] MEDS: Venlafaxine XR 75 mg ER24 Capsule PO SCH (07:53)
--- NOTE | 2016-11-01 08:52 | NUR ---
pt arrived to [facility] for DIALYSIS at 0850 via bed escorted by CNAs report received from TB RN (CARLEE) tele monitor and storage bin tender informed of temp room location pt alert/oriented, denies complaints stamp machine servicer at bedside; will cont to monitor; call light in reach
--- NOTE | 2016-11-01 12:49 | CONS ---
[address] [address] CONSULTATION REPORT PATIENT: CHRIS COREA : 1950 MR#: [id number] ADMIT: 10/31/2016 JOB ID: [id number] DATE OF SERVICE: NEPHROLOGY CONSULTATION: REQUESTING PHYSICIAN: Suzi Donaldson DO REASON FOR CONSULTATION: Management of end-stage renal disease. CHIEF COMPLAINT: Weakness. Required hemodialysis. HISTORY OF PRESENT ILLNESS: This is a 66-year-old lady with significant past medical history of end-stage renal disease on hemodialysis every Sunday, , Sunday, type 2 diabetes, hypertension, coronary artery disease, sleep apnea, who was transferred from [facility] due to the urgent need of hemodialysis. She is a patient of Dr. Isaacs and Dr. Pelaez. She reported that she missed two treatments of hemodialysis on Sunday and yesterday. She stated that she has had a skin infection in her private area as well as the buttocks area. The patient has been feeling weak and unable to get out of bed. She stated that she was too weak to go to hemodialysis the day, therefore she has missed two treatments. The initial BMP showed a potassium of 8.5. The patient received medications in that regard and I was contacted to accept her as for an urgent dialysis. She reports no history of fever or chills. She reported that she had loose stool last night. She has no significant chest pain but stated that it was difficult to breathe. She received hemodialysis last night; 2 L of fluid was removed. She claimed that she is now breathing better. The patient is currently on hemodialysis. She has no new complaints at the moment. She is quite comfortable. Her initial potassium last night was 6.2. A repeat potassium this morning was 5.4. PAST MEDICAL HISTORY: 1. Last hospitalization was in August 2016 at [facility] due to acute respiratory failure and parainfluenza pneumonia. 2. Continued end-stage renal disease, on hemodialysis every Sunday, , Sunday. 3. Type 2 diabetes with diabetic nephropathy. 4. Hypertension with hypertensive nephrosclerosis. 5. Diabetic neuropathy. 6. Chronic atrial fibrillation. 7. Coronary artery disease. 8. Morbid obesity with obstructive sleep apnea. 9. Depression. 10. Restless legs syndrome. 11. Anemia of chronic kidney disease. 12. Severe aortic stenosis. 13. Cervical cancer. 14. Gout. PAST SURGICAL HISTORY: 1. Status post tonsillectomy. 2. Status post left-sided AV fistula creation. 3. Status post LEEP for cervical cancer. FAMILY HISTORY: Positive for diabetes. SOCIAL HISTORY: She is a former smoker. ALLERGIES: METFORMIN AND BACTRIM. REVIEW OF SYSTEMS: Fourteen point review of system was performed. PHYSICAL EXAMINATION: Vitals: Temperature 36.6, pulse 83, respiratory 18, blood pressure 134/56, O2 sat 97% on room air. General appearance: Chronically ill-looking, in no acute distress. Awake, alert. Oriented x3. HEENT: No pallor. No jaundice. No JVD. No lymphadenopathy. No thyroid enlargement. Atraumatic. Moist mucous membranes. Heart: Regular rate and rhythm. Normal S1, S2. Systolic murmur noted. Lungs: Equal breath sounds bilaterally. No wheezing. No rhonchi at the moment. Abdomen: Soft, obese, active bowel sounds. Nontender, nondistended. No hepatosplenomegaly. Extremities: Trace edema on the lower extremity. Positive ecchymosis on the lower extremity. Skin: Unable to evaluate; since the patient is on hemodialysis she is not able to change her position. LABORATORY DATA: CBC: WBC 13.1, hemoglobin 9.8. Sodium 139, potassium 5.4, chloride 95, bicarb 26, BUN 51, creatinine 8.01, glucose 60, calcium 8.8. ASSESSMENT: 1. Hyperkalemia. 2. Uremia. 3. End-stage renal disease, on hemodialysis. 4. Skin and soft tissue infection. 5. Type 2 diabetes with renal manifestation. 6. Hypertension with hypertensive nephrosclerosis. 7. Chronic atrial fibrillation. 8. History of severe aortic stenosis. RECOMMENDATIONS: Per renal standpoint, we will pursue another hemodialysis today. The patient will receive 4 hours of hemodialysis treatment using two potassium bath. Ultrafiltration will try to remove fluid up to 3 L as tolerated. We will reassess her volume status on a daily basis. She may need another hemodialysis tomorrow. Thank you for allowing me to participate in the care of your patient. We will monitor along with you.
--- NOTE | 2016-11-01 13:10 | NUR ---
Dialysis note: 4 hrs tx 3000 ml net UF MARILYN fistula, accessed w/ no problems Pls see DTR for VS details Qb 400-500 Heparin given O2 @ 2L via NC on during tx Tolerated tx, ate 100% breakfast during tx Fistula needle sites clotted w/in 10 min Stable condition at end of tx Report given to Jackie ZHOU
[2016-11-01] MEDS: Piper-Tazo 3.375 Gm/50 mL D5W Minibag Plus - Q8H over 4 hrs IV SCH ×2 (13:36)
--- NOTE | 2016-11-01 14:04 | NUR ---
pt returned to [facility] post DIALYSIS at ~1340 report returned to TB RN ([facility]) tele master control technician informed of return to unit see account support associate note, intervention, and/or graphic flow for treatment details
--- NOTE | 2016-11-01 14:15 | NUR ---
Social Work-initial assessment: Data:See initial assessment. Pt is a 66 y/o female who was admitted on 10/31/16 for kidney failure per H&P. Pt's insurance is [facility] and [facility] supp. BHUPINDER met with pt at bedside, BHUPINDER role explained. Pt is alert and oriented x3. Pt resides at home with her brother Patrick [phone] and daughter Jennifer in [place],where she remains independent with ADLs. Pt uses a fww, cane or w/c at baseline and does not drive. Pt has had HH and has been to [facility] in the past. Pt has no termite control technician care insurance or VA benefits. Pt states she has all the DPOA/ advanced directive paperwork she just needs to complete this, SW encouraged pt to finish. Pt goes to [facility] in [place] and her Nephrology . Pt states she has caregivers through [employer], but cannot remember the name of her manager stars. BHUPINDER called [facility] and left message for steel construction worker of the leah [employer], awaiting a return call. Pt confirms her family will provide transport home at discharge. SW provided phone number and plan on white board in room. SW will continue to follow. Assessment:Pt who has assistance at baseline. Plan:Pt to likely discharge home with family when medically stable. SW awaiting a return call From [facility] to find out CM for [facility]. BHUPINDER will continue to follow. GRANT Sims Addendum: 11/01/16 at 1426 by ALFONSO ENRIQUE Amended: Links added. Addendum: 11/01/16 at 1453 by ALFONSO FONSECA SS BHUPINDER received a call back from Magdalena informing BHUPINDER that pt's CM is through [facility]: Nora Andino P:[phone] F:[phone]. BHUPINDER faxed updated clinicals to Nora. GRANT Sims
--- NOTE | 2016-11-01 14:57 | NUR ---
Low blood glucose At shift change labs came back with BG of 50. NOC nurse giving me report rechecked before she left and BG was 52. Pt asymptomatic and able to take PO. PO carbs (food/drink) given. Pt taken do dialysis shortly thereafter, flotation tender helper notified of BG issue. BG at dialysis 123. Continuing to monitor.
--- NOTE | 2016-11-01 16:19 | PCM.PNMED ---
Subjective Date of Service Nov 01, 2016 Subjective Denies any new issues/complaints. says overall feeling better than when she came in Exam Vital Signs Vital Sign - Last Date Time Temp Pulse Resp B/P Pulse Ox O2 Delivery O2 Flow Rate FiO2 11/01/16 14:17 36.8 96 18 131/65 96 Room Air Intake and Output 10/31/16 10/31/16 11/01/16 Cumulative From/Thru 14:59 22:59 06:59 10/31/16 19:39 - 11/01/16 06:03 Intake Total 0 ml 0 ml Output Total 2000 ml 0 ml 2000 ml Balance -2000 ml 0 ml -2000 ml Intake Oral 0 ml 0 ml Output Urine Total 0 ml 0 ml Ultrafiltrate 2000 ml 2000 ml # Bowel Movements 3 3 Exam General: Alert, Oriented X3, Cooperative, no distress Eyes: PERRLA, Scleral Anicteric Mouth: Mouth Normal, Mucous Membranes Moist/[place] Neck: Supple Chest & Lungs: CTA bilateral, chest wall normal. Cardiovascular: RRR Pulses: Radial (present and equal), Dorsalis Pedi (present and equal) Abdomen: Soft, Non-tender, obese, Normoactive bowel tones. Musculoskeletal: Normal range of motion Extremities: trace pitting edema, excoriations noted Skin: groin erythema, macerated areas with increased erythema Neurological: Grossly neurologically intact, Normal Speech Psych: Appropriate affect IVs and Medications Medications Reviewed: Medications were reviewed in detail Lab and Diagnostics Result Diagram: 11/01/16 0510 11/01/16 0510 Cardiac Echo Impressions 08/2016 Interpretation Summary The left ventricle is normal in size. The ejection fraction is estimated to be 60-65%. There has been no significant change in LV EF since the previous study. The right ventricle is borderline dilated. The right ventricular systolic function is normal. There is severe aortic stenosis (Paradoxically low gradient). The calculated aortic valve area is 1.0 cm2.The aortic valve area is 0.9 centimeters squared by planimetry. The peak aortic velocity is 3.6 m/sec. The aortic valve mean gradient is 32 mmHg. The peak aortic velocity on the previous exam was 3.8 m/sec. There is mild aortic regurgitation. Compared to the prior echo study, there has been no change in the severity of aortic regurgitation. There is trace tricuspid regurgitation. The right ventricular systolic pressure is estimated at 39 mmHg assuming a right atrial pressure of 3 mm Hg. Assessment & Plan 66 yo F with past medical history of DM2, HTN, ESRD on HD, CHF and CAD with CC of weakness transferred from [place] with findings of potassium of 8.4. # Acute hyperkalemia, present on admission. Ongoing but improving - missed dialysis x2, due to weakness, discomfort groin - transferred for urgent dialysis - appreciate nephrology consult. will followup with recs. - further HD per nephrology recs # Diarrhea, acute, POA. Resolved. - stool studies negative - monitor fluid status # Suspected acute cellulitis present on admission. - ? left lower extremity and groin area vs simple yeast infection - Continue with empiric piperacillin-tazobactam and will consider ID consult in am. - continue with Nystatin powder for suspected yeast infection - MRSA negative # Acute Dyspnea, POA - history of severe aortic stenosis, elevated bnp at OSH - concern for worsening CHF in the setting of missed dialysis - repeat limited ECHO pending # Normocytic anemia, unknown chronicity - no acute blood loss - secondary to renal dysfunction # Endstage Renal disease on hemodialysis - nephrology consulted, dialysis immediately following admission # Chronic Atrial Fibrillation on Chronic anticoagulations - monitor on telemetry - continue Cardizem for rate [id number] mg daily, also on Metoprolol 25 mg daily - checking INR, no bleeding, Pharmacy to dose Coumadin dose # Diabetes Type 2 with neuropathy - low correction Lispro algorithm - checking A1c to gauge control - determine Lantus dosing and continue # Severe Aortic Stenosis Patient recommended for T[facility]R procedure at [facility] # Coronary artery disease - continue Aspirin for antiplatelet therapy # Hypertension with hypotensive issues - continuing Midodrine as scheduled # Morbid Obesity with Obstructive Sleep apnea - continue CPAP at night # Depression, Anxiety with Restless Leg Syndrome - Presumed stable - continue Ropinirole, Venlafaxine and Amitriptyline Dispo: 2-3 days GI Prophylaxis: Proton Pump Inhibitor VTE Prophylaxis: Sub-Q Heparin (Unfractionated) Resuscitation Status: CPR: Attempt Resuscitation Smith Jj Nov 01, 2016 16:19 . GI Prophylaxis: Proton Pump Inhibitor VTE Prophylaxis: Sub-Q Heparin (Unfractionated) Resuscitation Status: CPR: Attempt Resuscitation Smith Jj Nov 01, 2016 16:19
--- NOTE | 2016-11-01 17:09 | DRSVH ---
[facility] [address] [place] [address] Echocardiogram Report Name: CHRIS COREA EStudy Date: 11/01/2016 Height: 60 in Hospital Exam Location: [facility] Weight: 265 lb Gender: Female BSA: 2.1 m2 : 1950 Age: 66 yrs BP: 142/65 mmHg Reason For Study: Dyspnea Ordering Physician: HOSPITALIST [facility] Performed By: Opal Lindo Referring Physician: Truong Jackson Interpretation Summary The ejection fraction is estimated to be 60-65%. The mitral valve leaflets appear mildly thickened, but open well. The aortic valve area is 0.92 centimeters squared by planimetry. The calculated aortic valve area is 1.1 cm2. The peak aortic velocity is 3.7 m/sec. The peak aortic velocity on the previous exam was 3.6 m/sec. There is mild aortic regurgitation. There is trace tricuspid regurgitation. The right ventricular systolic pressure is estimated at least 31 mmHg assuming a right atrial pressure of 3 mm Hg. Procedure: A two-dimensional transthoracic echocardiogram with color flow and Doppler was performed in limited views only. Comparison is made with the echocardiogram of 08/21/2016. The study quality was technically adequate. The patient was in normal sinus rhythm during the exam. Left Ventricle: The left ventricle is normal in size. Proximal septal thickening is noted. The LVOT diameter is 2.1 cm. The LVOT velocity is 1.0 m/s. The ejection fraction is estimated to be 60-65%. Assessment of diastolic parameters suggests a pseudonormalization pattern, consistent with elevated filling pressures. Right Ventricle: The right ventricle is normal in size and function. Mitral Valve: There is mild to moderate mitral annular calcification. The mitral valve leaflets appear mildly thickened, but open well. There is trace mitral regurgitation. Aortic Valve: The aortic valve is moderately calcified. The aortic valve is not well visualized. The aortic valve area is 0.92 centimeters squared by planimetry. The calculated aortic valve area is 1.1 cm2. The peak aortic velocity is 3.7 m/sec. The peak aortic velocity on the previous exam was 3.6 m/sec. The aortic valve mean gradient is 29 mmHg. There has been no significant change since the previous study. There is mild aortic regurgitation. Tricuspid Valve: The tricuspid valve is normal in structure and function. There is trace tricuspid regurgitation. The right ventricular systolic pressure is estimated at least 31 mmHg assuming a right atrial pressure of 3 mm Hg. Great Vessels: The IVC is of normal diameter and collapses greater than 50% with a sniff. This suggests a low right atrial pressure of 3 mm Hg. Pericardium/ Pleura There is no pericardial effusion. MMode/2D Measurements & Calculations LVIDd: 5.4 cm IVC diam: 1.9 cm LVOT diam ROSETTA (plan) LVIDs: 3.0 cm : 2.1 cm FS: 43.9 % : 0.92 cm2 LVPWd: 0.95 cm LV jimenez. diameter/BSA LV sys. diameter/BSA RVD1 (basal) TAPSE: 2.2 cm (cm/m^2): 2.5 (cm/m^2): 1.4 Doppler Measurements & Calculations Ao V2 max MV E max adan MV E/A: 0.89 TR max adan : 365.8 cm/sec : 100.1 cm/sec Med Peak E' Adan : 263.2 cm/sec Ao max P.5 mmHg MV A max adan TR max PG Ao mean P.1 mmHg : 112.0 cm/sec E/E' med: 15.0 : 27.7 mmHg LVOT Max Adan MV P1/2t: 83.2 msec : 96.4 cm/sec ROSETTA(I,D): 1.1 cm sev ratio: 0.32 AI P1/2t: 357.5 msec AI dec slope : 275.9 cm/s2c MV dec time: 0.28 sec MV P1/2t max adan Ao V2 mean LV V1 max PG : 253.4 cm/sec MVA(P1/2t): 2.6 cm2 Ao V2 VTI: 77.3 cmLV V1 VTI ROSETTA(V,D): 0.92 cm2: 24.6 cm ROSETTA indexed to BSA (cm^2/m^2): 0.53 Electronically signed by: Joshua Cee on Reading Physician:11/01/2016 05:08 PM
[2016-11-01] MEDS ORDERED: SEVE800T7 PO (18:38)
[2016-11-01] MEDS: Insulin GLARgine 100 Unit/mL Syringe SUBQ SCH (21:38)
--- NOTE | 2016-11-01 22:27 | DRSVH ---
PROCEDURE: X-RAY CHEST ONE VIEW, PORTABLE ([id number]) INDICATIONS: fluid overload TECHNIQUE: One view of the chest was acquired. COMPARISON: [facility], CR, CHEST 1 VIEW, 10/31/2016, 15:49. [facility], CR, XR TARAS ST 1VW (PORTABLE), 08/20/2016, 23:55. FINDINGS: Surgical changes and devices: None. Lungs and pleura: No pleural effusions or pneumothorax. Resolving edema. Chronic elevation right h emidiaphragm. Mediastinum: Mediastinal contours appear normal. Heart size is normal. Bones and chest wall: No suspicious bony lesions. Overlying soft tissues appear unremarkable. IMPRESSION: Resolving edema. Dictated by: Isidro Alexander RRA Interpreted: Sergio Baeza MD on 11/01/2016 at 10:46 Approved by: Sergio Baeza M.D. on 11/01/2016 at 22:26
[2016-11-02] VITALS (13 sets, daily range): BP systolic 102–123; BP diastolic 45–67; PULSE 80–102; RESP 18–20; O2SAT 95–100
[2016-11-02] MEDS: Piper-Tazo 3.375 Gm/50 mL D5W Minibag Plus - Q8H over 4 hrs IV SCH ×4 (00:18→14:01)
[2016-11-02] MEDS: Pantoprazole 40 mg ER24 Tablet PO SCH (06:04)
[2016-11-02 07:11] LABS: BASOPHILS % (AUTO) 0.2 % (0-3); EOSINOPHILS % (AUTO) 3.3 % (0-5); MONOCYTES % (AUTO) 12.8 % (4-12); Mean Corpuscular Hemoglobin 28.7 pg (27.0-35.0); Mean Corpuscular Volume 96.7 fL (81-100); NEUTROPHILS % (AUTO) 59.9 % (40-74); Platelet Count 134 bil/L (150-400)
[2016-11-02 07:42] LABS: INR 1.03 ratio
[2016-11-02] MEDS: Insulin LISPRO 300 Unit/3 mL Inj SUBQ SCH ×4 (07:51→21:37)
[2016-11-02 08:08] LABS: Magnesium 1.6 mg/dL (1.6-2.6)
[2016-11-02] MEDS: Albuterol-Ipratropium 120 Spray 4 Gm Inhaler INHALATION SCH ×2 (08:18→20:31)
[2016-11-02] MEDS: Nystatin 100,000 Unit/Gm 15 Gm Powder TOPICAL SCH ×2 (08:18→20:32)
[2016-11-02] MEDS: Venlafaxine XR 75 mg ER24 Capsule PO SCH (08:20)
--- NOTE | 2016-11-02 12:30 | PCM.PNNEPH ---
Subjective Date of Service Nov 02, 2016 Subjective Patient is seen during HD. Stable, no CP/SOB. IV zosyn started for possible skin and soft tissue infection. Exam Vital Signs Vital Sign - Last Date Time Temp Pulse Resp B/P Pulse Ox O2 Delivery O2 Flow Rate FiO2 11/02/16 08:58 99 11/02/16 08:24 36.5 18 123/66 98 Room Air Intake and Output 11/01/16 11/01/16 11/02/16 Cumulative From/Thru 14:59 22:59 06:59 10/31/16 19:39 - 11/02/16 06:55 Intake Total 800 ml 400 ml 1200 ml Output Total 3000 ml 0 ml 5000 ml Balance -3000 ml 800 ml 400 ml -3800 ml Intake Oral 800 ml 400 ml 1200 ml Output Urine Total 0 ml 0 ml Ultrafiltrate 3000 ml 5000 ml # Bowel Movements 1 0 4 Exam General appearance: Chronically ill-looking, in no acute distress. Awake, alert. Oriented x3. HEENT: No pallor. No jaundice. No JVD. No lymphadenopathy. No thyroid enlargement. Atraumatic. Moist mucous membranes. Heart: Regular rate and rhythm. Normal S1, S2. Systolic murmur noted. Lungs: Equal breath sounds bilaterally. No wheezing. No rhonchi at the moment. Abdomen: Soft, obese, active bowel sounds. Nontender, nondistended. No hepatosplenomegaly. Extremities: Trace edema on the lower extremity. Positive ecchymosis on the lower extremity. Skin: erythema noted on right/left groin and perivulvar area. Lab and Diagnostics Result Diagram: 11/02/16 0611/02/16 06 Cardiac Echo Impressions 08/2016 Interpretation Summary The left ventricle is normal in size. The ejection fraction is estimated to be 60-65%. There has been no significant change in LV EF since the previous study. The right ventricle is borderline dilated. The right ventricular systolic function is normal. There is severe aortic stenosis (Paradoxically low gradient). The calculated aortic valve area is 1.0 cm2.The aortic valve area is 0.9 centimeters squared by planimetry. The peak aortic velocity is 3.6 m/sec. The aortic valve mean gradient is 32 mmHg. The peak aortic velocity on the previous exam was 3.8 m/sec. There is mild aortic regurgitation. Compared to the prior echo study, there has been no change in the severity of aortic regurgitation. There is trace tricuspid regurgitation. The right ventricular systolic pressure is estimated at 39 mmHg assuming a right atrial pressure of 3 mm Hg. Plan Impression ASSESSMENT: 1. Hyperkalemia. Resolved. 2. End-stage renal disease, on hemodialysis. 4hr, 2K, 35HCO3, revaclear. DFR 600, BFR 400, UF 2L. AVF. 3. Suspected skin and soft tissue infection. 4. Type 2 diabetes with renal manifestation. 5. Hypertension with hypertensive nephrosclerosis. 6. Renal osteodystrophy. 7. Chronic atrial fibrillation. 8. History of severe aortic stenosis. Plan: Next HD on Sat. Continue renvela. The rest of management as per primary team. Jennifer Lozada MD Nov 02, 2016 12:30
--- NOTE | 2016-11-02 13:45 | NUR ---
Dialysis note: 4 hrs tx 2000 ml net UF MARILYN fistula, accessed w/ no problems Pls see DTR for VS details Qb 400-500 Heparin given O2 @ 2L via NC on during tx Tolerated tx, slept at intervals Fistula needle sites clotted w/in 10 min Stable condition at end of tx Report given to Nichole ZHOU
--- NOTE | 2016-11-02 14:24 | PCM.PNMED ---
Subjective Date of Service Nov 02, 2016 Subjective complains of some discomfort at left leg and on pannus rash Exam Vital Signs Vital Sign - Last Date Time Temp Pulse Resp B/P Pulse Ox O2 Delivery O2 Flow Rate FiO2 11/02/16 08:58 99 11/02/16 08:24 36.5 18 123/66 98 Room Air Intake and Output 11/01/16 11/01/16 11/02/16 Cumulative From/Thru 15:00 23:00 07:00 10/31/16 19:39 - 11/02/16 06:55 Intake Total 800 ml 400 ml 1200 ml Output Total 3000 ml 0 ml 5000 ml Balance -3000 ml 800 ml 400 ml -3800 ml Intake Oral 800 ml 400 ml 1200 ml Output Urine Total 0 ml 0 ml Ultrafiltrate 3000 ml 5000 ml # Bowel Movements 1 0 4 Exam General: Alert, Oriented X3, Cooperative, no distress Eyes: PERRLA, Scleral Anicteric Mouth: Mouth Normal, Mucous Membranes Moist/[place] Neck: Supple Chest & Lungs: CTA bilateral, chest wall normal. Cardiovascular: RRR Pulses: Radial (present and equal), Dorsalis Pedi (present and equal) Abdomen: Soft, Non-tender, obese, Normoactive bowel tones. Musculoskeletal: Normal range of motion Extremities: trace pitting edema, excoriations noted Skin: groin erythema, macerated areas with erythema Neurological: Grossly neurologically intact, Normal Speech Psych: Appropriate affect IVs and Medications Medications Reviewed: Medications were reviewed in detail Lab and Diagnostics Result Diagram: 11/02/16 0611/02/16 0605 Cardiac Echo Impressions 08/2016 Interpretation Summary The left ventricle is normal in size. The ejection fraction is estimated to be 60-65%. There has been no significant change in LV EF since the previous study. The right ventricle is borderline dilated. The right ventricular systolic function is normal. There is severe aortic stenosis (Paradoxically low gradient). The calculated aortic valve area is 1.0 cm2.The aortic valve area is 0.9 centimeters squared by planimetry. The peak aortic velocity is 3.6 m/sec. The aortic valve mean gradient is 32 mmHg. The peak aortic velocity on the previous exam was 3.8 m/sec. There is mild aortic regurgitation. Compared to the prior echo study, there has been no change in the severity of aortic regurgitation. There is trace tricuspid regurgitation. The right ventricular systolic pressure is estimated at 39 mmHg assuming a right atrial pressure of 3 mm Hg. Assessment & Plan 66 yo F with past medical history of DM2, HTN, ESRD on HD, CHF and CAD with CC of weakness transferred from [place] with findings of potassium of 8.4. # Acute hyperkalemia, present on admission. Ongoing but improving - had missed dialysis x2, due to weakness, discomfort groin - post dialysis on 11/01 and 11/02 - appreciate nephrology consult. will followup with recs. - further HD per nephrology recs on Sunday # Diarrhea, acute, POA. Resolved. - stool studies negative - monitor fluid status # Suspected acute cellulitis present on admission. - ? left lower extremity and groin area vs simple yeast infection - Continue with empiric piperacillin-tazobactam - ID consulted today on 11/02. Will followup with recs - continue with Nystatin powder for suspected yeast infection - MRSA negative # Acute Dyspnea, present on admission. Resolved - history of severe aortic stenosis, elevated bnp at OSH - concern for worsening CHF in the setting of missed dialysis - repeat limited ECHO on 11/01 showing EF 60-65% # Normocytic anemia, unknown chronicity - no acute blood loss - secondary to renal dysfunction # Endstage Renal disease on hemodialysis - nephrology consulted, dialysis immediately following admission # Chronic Atrial Fibrillation on Chronic anticoagulations - monitor on telemetry - continue Cardizem for rate cftftly677 mg daily, also on Metoprolol 25 mg daily - checking INR, no bleeding, Pharmacy to dose Coumadin dose # Diabetes Type 2 with neuropathy - low correction Lispro algorithm - checking A1c to gauge control - determine Lantus dosing and continue # Severe Aortic Stenosis Patient recommended for TAVR procedure at [facility] # Coronary artery disease - continue Aspirin for antiplatelet therapy # Hypertension with hypotensive issues - continuing Midodrine as scheduled # Morbid Obesity with Obstructive Sleep apnea - continue CPAP at night # Depression, Anxiety with Restless Leg Syndrome - Presumed stable - continue Ropinirole, Venlafaxine and Amitriptyline Dispo: 1-2 days GI Prophylaxis: Proton Pump Inhibitor VTE Prophylaxis: Sub-Q Heparin (Unfractionated) Resuscitation Status: CPR: Attempt Resuscitation Smith Jj Nov 02, 2016 14:24
--- NOTE | 2016-11-02 16:57 | NUR ---
Chest pressure At approx 1600 pt reported chest pressure, was tachypnic and diaphoretic. Tele reported SR 99. VS stable and reported to MD. 2L O2 put on for comfort, sat 100%. MD notified, stat EKG and SL nitro ordered. Nitro given, EKG done by RT, appears normal. Over the last 45 mins the pt reports feeling slightly better. MD assessed pt, troponins ordered. Continuing to monitor.
[2016-11-02] MEDS: Insulin GLARgine 100 Unit/mL Syringe SUBQ SCH (21:38)
--- NOTE | 2016-11-02 21:47 | CONS ---
[address] [address] CONSULTATION REPORT PATIENT: CHRIS COREA : 1950 MR#: [id number] ADMIT: 10/31/2016 JOB ID: [id number] DATE OF SERVICE: 11/02/[address] Jj for this timely consult. REASON FOR CONSULT: Question a significant soft tissue infection in a dialysis patient. HISTORY OF PRESENT ILLNESS: The patient is a super morbidly obese, 66-year-old dialysis patient who was admitted to this facility on October 31 with profound hyperkalemia. The patient reports that she is usually on hemodialysis three times a week, but because of a right groin painful abscess which has developed recently, she either had some pain and discomfort and was not able to get to dialysis. Eventually, she ended up with an extremely elevated potassium and systemic weakness along with some mild confusion, all of which led to her admission after a visit to [facility] near her home in [place] where she was found to have a potassium of 8.5. After admission here, the patient has undergone additional dialysis to correct her potassium and renal dysfunction and she is feeling much better. She tells me that the abscess that was causing her so much trouble was present in her right groin region and that there was some brown drainage which came out of it and it was extraordinarily painful. She also notes that for the past few weeks she has had some scabs over her forehead which have also been somewhat problematic for her. Despite this, she has not had overt fevers or chills, though she does have some of what she describes as "hot flashes" when she feels really hot and then really clammy which come and go, but she says these are more frequent and not typically associated with a right groin process. She notes that some shortness of breath she had when she came in is somewhat better, but that she continues to have shortness of breath with exertion which is a chronic problem. has asked me to see this patient today to see what I think is the status of her right groin infectious process. PAST MEDICAL HISTORY: 1. End-stage renal disease with ongoing dialysis via fistula, left upper extremity. 2. Aortic stenosis. 3. Chronic atrial fibrillation on anticoagulation. 4. Diabetes mellitus. 5. History of coronary artery disease. 6. Hypertension. 7. Morbid obesity. 8. Obstructive sleep apnea. 9. Hyperlipidemia. 10. History of gout. SOCIAL HISTORY: The patient is a nondrinker and nonsmoker. She smoked in the distant past but she lives with a daughter now who does smoke though separate in the house from her. FAMILY HISTORY: Negative for TB in 1st or 2nd-degree relatives. She did have a friend across the street once who did have TB but the patient was tested and was negative thereafter. She does have a strong family history of diabetes. REVIEW OF SYSTEMS: The patient at this point tells me she has no headache. She does have the scrapes on her forehead which she believes might represent a chronic infection as they have been there about a month. She denies significant new visual complaint. She has had some mild sore throat which seems to be getting better. She has had intermittent hot and cold flashes. She notes that she is always short of breath and always has a bit of a cough, but it has not changed recently. She has had no nausea or vomiting. She did have some relatively loose stools recently, but those seem to have improved. She also had a right groin lesion for an unknown period of days, but it sounds like it occurred a couple days prior to her missed dialysis session that led to this admission. She tells me she can walk basically prison across her house with a walker and then she goes down a short flight of stairs and transitions to another walker and can make it basically out the front door. She performs this exercise routine every other day. The remainder of the review of systems negative. PHYSICAL EXAMINATION: Reveals an afebrile woman, temp 36.7, pulse 83, respiratory rate 20, blood pressure 116/55, she is saturating 98% on room air. The patient is clearly morbidly obese and somewhat deconditioned overall. Examination of her head reveals three or four shallow excoriations present across the forehead. None of these appear significantly infected. There is no surrounding cellulitis or drainage. Her eyes are with mild conjunctival pallor. Otherwise normal. Extraocular movements are intact. Oral cavity: No thrush or hairy leukoplakia. The oral cavity is basically normal. The neck is obese and hard to examine, but no focal tenderness or adenopathy. The patient's mental status is clear. She is alert and oriented x3 and able to give a good history. Her lungs are quite distant but without focal rales or rhonchi. The fistula is present in the left upper extremity. It has a good thrill, and it is nontender. Cardiac tones distant and irregular. Abdomen quite obese. Soft and nontender throughout with the assistance of one of the nurse week carefully retracted her pannus and vigorously searched the large areas under the pannus across the lower abdomen into the groin and even around the labia. We found a couple areas of very shallow excoriations which did not appear infected and which were not tender but could find no localized abscess or drainage in the pannus or labial or mons area. The patient was then rolled over and the buttocks carefully inspected and there was no evidence of skin breakdown or infection there either. The patient's extremities are without significant edema. There are venous stasis changes of the lower extremities bilaterally but no evidence of skin breakdown, no evidence of ongoing synovitis or cellulitis. Neurologically, the patient can move all of her extremities and is overall fairly weak with about 4-5 strength throughout. LABORATORIES: Include white count 6300 on the and 13,000 yesterday, now 9. Platelet count 134,000. Creatinine 4.75 today, much better than 8 when she was admitted. Potassium was 6.2 after arrival here, but recall that it was above 8 when she was at [facility]. It is now down to a 4.3 level. Procalcitonin 69.72 in this dialysis patient. We do not have a prior value. The patient's MRSA nares screen is negative. Stool PCR panel was done and was completely negative. Chest x-ray done yesterday shows resolving pulmonary edema. IMPRESSION: This is a bit of a confusing case of a woman who had such severe right groin area pain, which she thought was due to infection or abscess that drained, that she missed dialysis which resulted in profound hyperkalemia and confusion. The patient was eventually transferred here and now has been dialyzed back to a more normal renal function and potassium level. She has been treated with Zosyn, which seems appropriate, and she has improved clearly, but we do not have a focal source of infection. Despite my searching, I cannot find evidence of a soft tissue infection in or around the groin and buttock area. The small scabs on her forehead are certainly not infected and do not represent the source of the pain which forced her to skip dialysis nor the grossly elevated procalcitonin. At this point, it is a bit unclear to me what to do with the patient and the patient's antibiotics, but in view of her seeming improvement on the Zosyn, I would continue at least in the short term and perhaps transition to more dialysis, currently antibiotic regimen to finish a short course. RECOMMENDATIONS: 1. Will continue with Zosyn for now even though I am a little bit unclear as to the source of the infection. 2. Tomorrow will check a procalcitonin. 3. I plan to discuss this case tomorrow morning with Dr. Jj. Thank you very much for inviting me to participate in this case.
[2016-11-03] VITALS (9 sets, daily range): BP systolic 99–165; BP diastolic 50–76; PULSE 76–91; RESP 16–20; O2SAT 94–100
[2016-11-03] MEDS: Piper-Tazo 3.375 Gm/50 mL D5W Minibag Plus - Q8H over 4 hrs IV SCH ×4 (01:16→11:48)
[2016-11-03 01:58] LABS: TROPONIN T 0.057 ug/L (0.0-0.011)
--- NOTE | 2016-11-03 06:09 | NUR ---
Activity Pt up to BSC with 1 person assist, steady on feet. Pt c/o generalized hip pain 09/13, medicated pt with 975 mg PO tylenol. Pt denies chest pain. Pt reports hip pain is decreased after medication admin. Call light within reach, frequent rounding.
[2016-11-03] MEDS: Pantoprazole 40 mg ER24 Tablet PO SCH (06:38)
[2016-11-03] MEDS: Insulin LISPRO 300 Unit/3 mL Inj SUBQ SCH ×4 (07:37→21:40)
[2016-11-03] MEDS: Venlafaxine XR 75 mg ER24 Capsule PO SCH (08:01)
[2016-11-03] MEDS: Albuterol-Ipratropium 120 Spray 4 Gm Inhaler INHALATION SCH ×2 (08:02→21:38)
[2016-11-03] MEDS: Nystatin 100,000 Unit/Gm 15 Gm Powder TOPICAL SCH ×2 (08:02→21:39)
[2016-11-03] MEDS: Heparin 5,000 Unit/mL Inj SUBQ SCH ×2 (11:48→17:38)
--- NOTE | 2016-11-03 11:57 | PROG NOTE ---
[address] [address] PROGRESS NOTE PATIENT: CHRIS COREA : 1950 MR#: [id number] ADMIT: 10/31/2016 JOB ID: [id number] DATE: 11/03/2016 INFECTIOUS DISEASE FOLLOW UP NOTE: REASON FOR FOLLOWUP: Grossly elevated procalcitonin without explanation. INTERVAL HISTORY: Recall this is a patient I was asked to see yesterday by Dr. Jj. There had been concerns about her right groin abscess. The nurse and I spent considerable time yesterday evening examining the entire area of the patient's right groin and genital area and were unable to find any abscess or infectious area whatsoever. There was also no evidence of infection around the buttocks and no skin breakdown consistent with a decubitus ulcer. This morning the patient tells me she has been free of fevers or chills but she has been quite tired. She has the scabs on her forehead which she says arose spontaneously and are somewhat painful. Other than that, she has little in the way of complaints except fatigue. No fevers, chills or sweats. No nausea, vomiting, diarrhea. She does note she in fact had constipation and was relieved today by a bowel movement. No new complaints about the extremities. PHYSICAL EXAMINATION: Reveals a slightly lethargic but easily aroused and once aroused alert woman. Temperature 36.9, pulse 89, respiratory rate 16, blood pressure 99/50. She is saturating well on room air. She is off the nasal oxygen. She does not appear in any distress. There are three lesions scattered across her forehead but the only really tender one over the right eye. There is no fluctuance, however, and just a subtle rim of erythema surrounds this lesion. The neck is without notable abnormalities. The oral cavity is without thrush or pharyngitis. The lungs are notable for distant breath sounds but relatively clear. Cardiac tones with a unmistakable 2/6 high-pitched systolic murmur despite the fact cardiac tones are in general distant as well. The abdomen is obese, soft, and basically nontender. The left upper extremity fistula looks benign. As was noted, there is no apparent abscess. There is no visible abscess or inflammation in the groin. The lower extremities are without evidence of infection also. LABORATORIES: Include a white count which is normal yesterday at 9000, not repeated today. Creatinine 4.75 in this dialysis patient. Follow up procalcitonin at 60 today and yesterday's was 70, so these are grossly elevated. Micro studies here include a stool PCR panel which was negative and a MRSA screen of the nares which was negative. A chest x-ray done a couple days ago shows what is read as resolving pulmonary edema. IMPRESSION: This is a confusing case. I would be inclined to say this patient has no infection as she really has no localizing findings of infection, no fever and no white count, but we are left with this tremendously elevated procalcitonin. I did a literature search, and was unable to find any real justification for renal failure causing procalcitonins above 1.5 and this patient's, of course, is 50 fold higher. I think we must be concerned about an occult infection such as bacteremia, endocarditis or intra-abdominal abscess though there is little in the way of symptomatology to favor any of these. Lesions on her head her odd and I do not think they are embolic but these may be certainly worthy of a close followup. RECOMMENDATIONS: 1. Will continue with Zosyn as our sole antibiotic today. 2. Blood cultures x2 will be ordered. 3. Will continue to closely observe this patient going forward.
--- NOTE | 2016-11-03 14:54 | PCM.PNNEPH ---
Subjective Date of Service Nov 03, 2016 Subjective Patient had hemodialysis performed yesterday without complications. She experienced some chest pressure earlier this morning. Serum troponin ranged between 0.5-0.6. Patient was evaluated by infectious disease physicians. Exam Vital Signs Vital Sign - Last Date Time Temp Pulse Resp B/P Pulse Ox O2 Delivery O2 Flow Rate FiO2 11/03/16 12:47 36.8 86 18 145/68 94 Room Air 11/03/16 03:56 2.00 Intake and Output 11/02/16 11/02/16 11/03/16 Cumulative From/Thru 14:59 22:59 06:59 10/31/16 19:39 - 11/03/16 06:40 Intake Total 534 ml 66 ml 1800 ml Output Total 2000 ml 0 ml 7000 ml Balance -2000 ml 534 ml 66 ml -5200 ml Intake Oral 474 ml 1674 ml IV Total 60 ml 66 ml 126 ml Output Urine Total 0 ml 0 ml Ultrafiltrate 2000 ml 7000 ml # Bowel Movements 0 4 Exam General appearance: Chronically ill-looking, in no acute distress. Awake, alert. Oriented x3. HEENT: No pallor. No jaundice. No JVD. No lymphadenopathy. No thyroid enlargement. Atraumatic. Moist mucous membranes. Heart: Regular rate and rhythm. Normal S1, S2. Systolic murmur noted. Lungs: Equal breath sounds bilaterally. No wheezing. No rhonchi at the moment. Abdomen: Soft, obese, active bowel sounds. Nontender, nondistended. No hepatosplenomegaly. Extremities: Trace edema on the lower extremity. Positive ecchymosis on the lower extremity. Skin: erythema noted on right/left groin and perivulvar area. Lab and Diagnostics Result Diagram: 11/02/1660411/02/16604 Cardiac Echo Impressions 08/2016 Interpretation Summary The left ventricle is normal in size. The ejection fraction is estimated to be 60-65%. There has been no significant change in LV EF since the previous study. The right ventricle is borderline dilated. The right ventricular systolic function is normal. There is severe aortic stenosis (Paradoxically low gradient). The calculated aortic valve area is 1.0 cm2.The aortic valve area is 0.9 centimeters squared by planimetry. The peak aortic velocity is 3.6 m/sec. The aortic valve mean gradient is 32 mmHg. The peak aortic velocity on the previous exam was 3.8 m/sec. There is mild aortic regurgitation. Compared to the prior echo study, there has been no change in the severity of aortic regurgitation. There is trace tricuspid regurgitation. The right ventricular systolic pressure is estimated at 39 mmHg assuming a right atrial pressure of 3 mm Hg. Plan Impression ASSESSMENT: 1. Hyperkalemia. Resolved. 2. End-stage renal disease, on hemodialysis. 3. Suspected skin and soft tissue infection. 4. Type 2 diabetes with renal manifestation. 5. Hypertension with hypertensive nephrosclerosis. 6. Renal osteodystrophy. 7. Chronic atrial fibrillation. 8. History of severe aortic stenosis. 9. New-onset chest pain with mild elevation of serum troponin. Plan: Next HD on Sat. Continue renvela. The rest of management as per primary team. Jennifer Lozada MD Nov 03, 2016 14:54
--- NOTE | 2016-11-03 15:07 | PCM.PNMED ---
Subjective Date of Service Nov 03, 2016 Subjective denies any new issues/complaints Exam Vital Signs Vital Sign - Last Date Time Temp Pulse Resp B/P Pulse Ox O2 Delivery O2 Flow Rate FiO2 11/03/16 12:47 36.8 86 18 145/68 94 Room Air 11/03/16 03:56 2.00 Intake and Output 11/02/16 11/02/16 11/03/16 Cumulative From/Thru 15:00 23:00 07:00 10/31/16 19:39 - 11/03/16 07:00 Intake Total 534 ml 738 ml 2472 ml Output Total 2000 ml 0 ml 0 ml 7000 ml Balance -2000 ml 534 ml 738 ml -4528 ml Intake Oral 474 ml 672 ml 2346 ml IV Total 60 ml 66 ml 126 ml Output Urine Total 0 ml 0 ml 0 ml Ultrafiltrate 2000 ml 7000 ml # Bowel Movements 0 1 5 Exam General: Alert, Oriented X3, Cooperative, no distress Eyes: PERRLA, Scleral Anicteric Mouth: Mouth Normal, Mucous Membranes Moist/[place] Neck: Supple Chest & Lungs: CTA bilateral, chest wall normal. Cardiovascular: RRR Pulses: Dorsalis Pedi (present and equal) Abdomen: Soft, Non-tender, obese, Normoactive bowel tones. Musculoskeletal: Normal range of motion Extremities: trace pitting edema, excoriations noted Neurological: Grossly neurologically intact, Normal Speech Psych: Appropriate affect IVs and Medications Medications Reviewed: Medications were reviewed in detail Lab and Diagnostics Result Diagram: 11/02/1660411/02/16 0605 Cardiac Echo Impressions 08/2016 Interpretation Summary The left ventricle is normal in size. The ejection fraction is estimated to be 60-65%. There has been no significant change in LV EF since the previous study. The right ventricle is borderline dilated. The right ventricular systolic function is normal. There is severe aortic stenosis (Paradoxically low gradient). The calculated aortic valve area is 1.0 cm2.The aortic valve area is 0.9 centimeters squared by planimetry. The peak aortic velocity is 3.6 m/sec. The aortic valve mean gradient is 32 mmHg. The peak aortic velocity on the previous exam was 3.8 m/sec. There is mild aortic regurgitation. Compared to the prior echo study, there has been no change in the severity of aortic regurgitation. There is trace tricuspid regurgitation. The right ventricular systolic pressure is estimated at 39 mmHg assuming a right atrial pressure of 3 mm Hg. Assessment & Plan 66 yo F with past medical history of DM2, HTN, ESRD on HD, CHF and CAD with CC of weakness transferred from [place] with findings of potassium of 8.4. # Acute hyperkalemia, present on admission. Ongoing but improving - had missed dialysis x2, due to weakness, discomfort groin - post dialysis on 11/01 and 11/02 - appreciate nephrology consult. will followup with recs. - further HD per nephrology recs on Sunday # Diarrhea, acute, POA. Resolved. - stool studies negative - monitor fluid status # Suspected acute cellulitis present on admission. - ? left lower extremity and groin area vs simple yeast infection - Appreciate ID consult. Will followup with recs - Continue with empiric piperacillin-tazobactam - continue with Nystatin powder for suspected yeast infection - MRSA negative # Acute Dyspnea, present on admission. Resolved - history of severe aortic stenosis, elevated bnp at OSH - concern for worsening CHF in the setting of missed dialysis - repeat limited ECHO on 11/01 showing EF 60-65% # Acute chest pain on 11/02/16. Resolved - Troponin only mildly elevated and steady. Elevated Trop is chronic and not significantly changed - EKG unremarkable - Echo unremarkable as noted above # Normocytic anemia, unknown chronicity - no acute blood loss - secondary to renal dysfunction # Endstage Renal disease on hemodialysis - nephrology consulted, dialysis immediately following admission # Chronic Atrial Fibrillation on Chronic anticoagulations - monitor on telemetry - continue Cardizem for rate [id number] mg daily, also on Metoprolol 25 mg daily - checking INR, no bleeding, Pharmacy to dose Coumadin dose # Diabetes Type 2 with neuropathy - low correction Lispro algorithm - checking A1c to gauge control - determine Lantus dosing and continue # Severe Aortic Stenosis Patient recommended for T[facility]R procedure at [facility] # Coronary artery disease - continue Aspirin for antiplatelet therapy # Hypertension with hypotensive issues - continuing Midodrine as scheduled # Morbid Obesity with Obstructive Sleep apnea - continue CPAP at night # Depression, Anxiety with Restless Leg Syndrome - Presumed stable - continue Ropinirole, Venlafaxine and Amitriptyline Dispo: 1-2 days GI Prophylaxis: Proton Pump Inhibitor VTE Prophylaxis: Sub-Q Heparin (Unfractionated) Resuscitation Status: CPR: Attempt Resuscitation Smith Jj Nov 03, 2016 15:06
--- NOTE | 2016-11-03 15:51 | NUR ---
[facility] Signed @ [id number]
[2016-11-03] MEDS: Insulin GLARgine 100 Unit/mL Syringe SUBQ SCH (21:40)
[2016-11-04] VITALS (10 sets, daily range): BP systolic 106–145; BP diastolic 46–71; PULSE 72–88; RESP 16–18; O2SAT 95–99
[2016-11-04] MEDS ORDERED: 0.9% Sodium Chloride 250 ML ONE (01:01)
[2016-11-04] MEDS: Heparin 5,000 Unit/mL Inj SUBQ SCH ×4 (01:02→23:50)
[2016-11-04] MEDS: Piper-Tazo 3.375 Gm/50 mL D5W Minibag Plus - Q8H over 4 hrs IV SCH ×6 (01:02→23:50)
[2016-11-04 05:36] LABS: BASOPHILS % (AUTO) 0.3 % (0-3); EOSINOPHILS % (AUTO) 5.3 % (0-5); MONOCYTES % (AUTO) 9.1 % (4-12); Mean Corpuscular Hemoglobin 28.9 pg (27.0-35.0); Mean Corpuscular Volume 96.6 fL (81-100); NEUTROPHILS % (AUTO) 56.7 % (40-74); Platelet Count 142 bil/L (150-400)
[2016-11-04] MEDS: Pantoprazole 40 mg ER24 Tablet PO SCH (06:17)
--- NOTE | 2016-11-04 06:36 | NUR ---
Shift summary Pt resting in bed this shift with eyes closed, denies pain. Call light within reach, frequent rounding.
[2016-11-04] MEDS: Insulin LISPRO 300 Unit/3 mL Inj SUBQ SCH ×4 (08:00→21:40)
[2016-11-04] MEDS: Venlafaxine XR 75 mg ER24 Capsule PO SCH (08:51)
[2016-11-04] MEDS: Nystatin 100,000 Unit/Gm 15 Gm Powder TOPICAL SCH ×2 (08:51→21:31)
[2016-11-04] MEDS: Albuterol-Ipratropium 120 Spray 4 Gm Inhaler INHALATION SCH ×2 (08:57→21:31)
--- NOTE | 2016-11-04 11:26 | NUR ---
Social Work-readiness for discharge: Data:EMR Reviewed. Pt is on day 4 of hospitalization for kidney failure per H&P. Pt is not medically stable anticipate 1-2 more days. Pt resides at home with her daughter and brother in [place]. Pt goes to dialysis T/TH/Sun. Per RN notes, pt has been up using fww in room. Pt has RONY at home. SW confirmed plan of home no needs. No discharge needs identified. SW will continue to follow if needs arise. Assessment:pt who is independent at baseline. Plan:Pt to discharge home when medically stable via POV. Pt to continue with RONY. No discharge needs identified. SW will continue to follow if needs arise. GRANT Sims
--- NOTE | 2016-11-04 11:28 | PCM.PNNEPH ---
Subjective Date of Service Nov 04, 2016 Subjective She offers no new complaint today. Denies CP/SOB/F/C/N/V Exam Vital Signs Vital Sign - Last Date Time Temp Pulse Resp B/P Pulse Ox O2 Delivery O2 Flow Rate FiO2 11/04/16 08:40 36.6 72 16 106/46 96 Room Air 11/03/16 03:56 2.00 Intake and Output 11/03/16 11/03/16 11/04/16 Cumulative From/Thru 15:00 23:00 07:00 10/31/16 19:39 - 11/04/16 06:51 Intake Total 534 ml 400 ml 3406 ml Output Total 0 ml 0 ml 7000 ml Balance 534 ml 400 ml -3594 ml Intake Oral 474 ml 400 ml 3220 ml IV Total 60 ml 186 ml Output Urine Total 0 ml 0 ml 0 ml Ultrafiltrate 7000 ml # Bowel Movements 0 0 5 Exam General appearance: Chronically ill-looking, in no acute distress. Awake, alert. Oriented x3. HEENT: No pallor. No jaundice. No JVD. No lymphadenopathy. No thyroid enlargement. Atraumatic. Moist mucous membranes. Heart: Regular rate and rhythm. Normal S1, S2. Systolic murmur noted. Lungs: Equal breath sounds bilaterally. No wheezing. No rhonchi at the moment. Abdomen: Soft, obese, active bowel sounds. Nontender, nondistended. No hepatosplenomegaly. Extremities: Trace edema on the lower extremity. Lab and Diagnostics Result Diagram: 11/04/16 0455 11/04/16 0455 Cardiac Echo Impressions 08/2016 Interpretation Summary The left ventricle is normal in size. The ejection fraction is estimated to be 60-65%. There has been no significant change in LV EF since the previous study. The right ventricle is borderline dilated. The right ventricular systolic function is normal. There is severe aortic stenosis (Paradoxically low gradient). The calculated aortic valve area is 1.0 cm2.The aortic valve area is 0.9 centimeters squared by planimetry. The peak aortic velocity is 3.6 m/sec. The aortic valve mean gradient is 32 mmHg. The peak aortic velocity on the previous exam was 3.8 m/sec. There is mild aortic regurgitation. Compared to the prior echo study, there has been no change in the severity of aortic regurgitation. There is trace tricuspid regurgitation. The right ventricular systolic pressure is estimated at 39 mmHg assuming a right atrial pressure of 3 mm Hg. Plan Impression ASSESSMENT: 1. Hyperkalemia. Resolved. 2. End-stage renal disease, on hemodialysis. 3. Elevation of procalcitonin - unclear source of infection. - ?skin and soft tissue infection. - ? UTI. 4. Type 2 diabetes with renal manifestation. 5. Hypertension with hypertensive nephrosclerosis. 6. Renal osteodystrophy. 7. Chronic atrial fibrillation. 8. History of severe aortic stenosis. 9. New-onset chest pain with mild elevation of serum troponin. Plan: HD today and next HD on Sunday. In and out cath x1, send UA and U/Cx. Jennifer Lozada MD Nov 04, 2016 11:28
--- NOTE | 2016-11-04 11:47 | NUR ---
Off the unit Pt taken off the unit for dialysis, BS = 95 no insulin given, lunch ordered to be delivered to rm 243. No complains of increased pain. Addendum: 11/04/16 at 1624 by MELISSA MALDONADO RN Pt returned from dialysis, no complains of increased pain, B/P = 143/69 with HR of 85. Call light in reach, will continue to monitor.
--- NOTE | 2016-11-04 12:20 | PROG NOTE ---
[address] [address] PROGRESS NOTE PATIENT: CHRIS COREA : 1950 MR#: [id number] ADMIT: 10/31/2016 JOB ID: [id number] DATE: 11/04/2016 INFECTIOUS DISEASE FOLLOWUP NOTE: REASON FOR FOLLOWUP: Strongly inflammatory lab values in a patient who is surprisingly nontoxic and is on dialysis. INTERVAL HISTORY: Overnight, the patient reports no fevers, chills, or sweats. She said the lesion over her right eye spontaneously drained some thin yellow fluid but that has now stopped. She also notes she had a bit of cardiac problems during the night and since then she has felt way way better. At this point she has had a shower. She denies fevers, chills, or sore throat. No significant shortness of breath. No GI symptoms. No more pain in her right groin. Overall she feels quite well. PHYSICAL EXAMINATION: Reveals an afebrile woman temp 36.6, pulse 72, respiratory rate 16, blood pressure 106/46, saturating well on room air. The lesion over the right eye is quite small, minimally erythematous, and almost nontender. I was unable to express any purulence. The other scattered lesions across her forehead appear entirely benign. Oral cavity without thrush or pharyngitis. Neck without adenopathy. Lungs fairly clear, though distant. Abdomen obese and nontender. No new skin rash. LABORATORIES: Include white count now 7900, basically normal diff except 5% eos. Creatinine is 5.57. Procalcitonin was 70 two days ago, 60 yesterday, and 50 today, steadily declining. Blood cultures are negative. MRSA screen negative. Stool PCR negative. IMAGING: No new imaging is available. IMPRESSION: This is an odd case of a woman on dialysis who does not really appear very infected and has no fever and no leukocytosis, but has greatly elevated procalcitonins. I cannot explain the procalcitonin just on the basis of her renal failure and I see no obvious reason for a false-positive procalcitonin, so I think we must be treating something, but it is unclear to me what. It may be that the Zosyn is treating an infection of the forehead. RECOMMENDATIONS: 1. Will continue with Zosyn. 2. Will closely follow her cultures. 3. I discussed this case and the patient in person with Dr. Lozada, head of nephrology, as well as Dr. Jj. Thank you very much.
--- NOTE | 2016-11-04 12:28 | PCM.PNMED ---
Subjective Date of Service Nov 04, 2016 Subjective denies any new issues/complaints Exam Vital Signs Vital Sign - Last Date Time Temp Pulse Resp B/P Pulse Ox O2 Delivery O2 Flow Rate FiO2 11/04/16 08:40 36.6 72 16 106/46 96 Room Air 11/03/16 03:56 2.00 Intake and Output 11/03/16 11/03/16 11/04/16 Cumulative From/Thru 15:00 23:00 07:00 10/31/16 19:39 - 11/04/16 06:51 Intake Total 534 ml 400 ml 3406 ml Output Total 0 ml 0 ml 7000 ml Balance 534 ml 400 ml -3594 ml Intake Oral 474 ml 400 ml 3220 ml IV Total 60 ml 186 ml Output Urine Total 0 ml 0 ml 0 ml Ultrafiltrate 7000 ml # Bowel Movements 0 0 5 Exam General: Alert, Oriented X3, Cooperative, no distress Eyes: PERRLA, Scleral Anicteric Mouth: Mouth Normal, Mucous Membranes Moist/[place] Neck: Supple Chest & Lungs: CTA bilateral, chest wall normal. Cardiovascular: RRR Pulses: Dorsalis Pedi (present and equal) Abdomen: Soft, Non-tender, obese, Normoactive bowel tones. Musculoskeletal: Normal range of motion Extremities: trace pitting edema, excoriations noted Neurological: Grossly neurologically intact, Normal Speech Psych: Appropriate affect IVs and Medications Medications Reviewed: Medications were reviewed in detail Lab and Diagnostics Result Diagram: 11/04/16 0455 11/04/16 0455 Cardiac Echo Impressions 08/2016 Interpretation Summary The left ventricle is normal in size. The ejection fraction is estimated to be 60-65%. There has been no significant change in LV EF since the previous study. The right ventricle is borderline dilated. The right ventricular systolic function is normal. There is severe aortic stenosis (Paradoxically low gradient). The calculated aortic valve area is 1.0 cm2.The aortic valve area is 0.9 centimeters squared by planimetry. The peak aortic velocity is 3.6 m/sec. The aortic valve mean gradient is 32 mmHg. The peak aortic velocity on the previous exam was 3.8 m/sec. There is mild aortic regurgitation. Compared to the prior echo study, there has been no change in the severity of aortic regurgitation. There is trace tricuspid regurgitation. The right ventricular systolic pressure is estimated at 39 mmHg assuming a right atrial pressure of 3 mm Hg. Assessment & Plan 66 yo F with past medical history of DM2, HTN, ESRD on HD, CHF and CAD with CC of weakness transferred from [place] with findings of potassium of 8.4. # Suspected acute cellulitis present on admission. - ? left lower extremity and groin area vs simple yeast infection - Appreciate ID consult. Will followup with recs - Continue with empiric piperacillin-tazobactam - continue with Nystatin powder for suspected yeast infection - Procalcitonin significantly elevated but improving with current treatment - MRSA negative # Acute hyperkalemia, present on admission. Resolved - had missed dialysis x2, due to weakness, discomfort groin - post dialysis on 11/01 and 11/02 - appreciate nephrology consult. will followup with recs. - further HD per nephrology recs on Sunday # Diarrhea, acute, POA. Resolved. - stool studies negative - monitor fluid status # Acute Dyspnea, present on admission. Resolved - history of severe aortic stenosis, elevated bnp at OSH - concern for worsening CHF in the setting of missed dialysis - repeat limited ECHO on 11/01 showing EF 60-65% # Acute chest pain on 11/02/16. Resolved - Troponin only mildly elevated and steady. Elevated Trop is chronic and not significantly changed - EKG unremarkable - Echo unremarkable as noted above # Normocytic anemia, unknown chronicity - no acute blood loss - secondary to renal dysfunction # Endstage Renal disease on hemodialysis - nephrology consulted, dialysis immediately following admission # Chronic Atrial Fibrillation on Chronic anticoagulations - monitor on telemetry - continue Cardizem for rate mg daily, also on Metoprolol 25 mg daily - checking INR, no bleeding, Pharmacy to dose Coumadin dose # Diabetes Type 2 with neuropathy - low correction Lispro algorithm - checking A1c to gauge control - determine Lantus dosing and continue # Severe Aortic Stenosis Patient recommended for TAVR procedure at [facility] # Coronary artery disease - continue Aspirin for antiplatelet therapy # Hypertension with hypotensive issues - continuing Midodrine as scheduled # Morbid Obesity with Obstructive Sleep apnea - continue CPAP at night # Depression, Anxiety with Restless Leg Syndrome - Presumed stable - continue Ropinirole, Venlafaxine and Amitriptyline Dispo: 1-2 days pending continued improving procalcitonin GI Prophylaxis: Proton Pump Inhibitor VTE Prophylaxis: Sub-Q Heparin (Unfractionated) Resuscitation Status: CPR: Attempt Resuscitation Smith Jj Nov 04, 2016 12:28
--- NOTE | 2016-11-04 16:03 | NUR ---
Dialysis note 4 hr HD tx 2000ml net UF removed 2 15 g needles to SYMONE fistula QB 500 See DTR for complete vitals trends Pt increasingly hypertensive thru tx, reported to nurse Pt rested comfortably thru tx without complaints Report given and pt returned to floor stable.
--- NOTE | 2016-11-04 17:40 | NUR ---
Bladder scan Order for in and out cath generated, for UA and culture, bladder scan completed, reveals 62 mls. Pt reports staff has tried to in and out cath following dialysis with no success. Will pass on to on coming shift for possible completion, Call light in reach, will continue to monitor.
[2016-11-04] MEDS: Insulin GLARgine 100 Unit/mL Syringe SUBQ SCH (21:39)
[2016-11-05] VITALS (10 sets, daily range): BP systolic 136–167; BP diastolic 53–77; PULSE 72–92; RESP 16–18; O2SAT 93–98
--- NOTE | 2016-11-05 04:21 | NUR ---
PT ACTIVITY Pt has mostly been in bed during shift. Pt up to BSC w/ 1 person assist w/ walker. Pt tolerated well. Pt slept most of night after receiving night medications. No complaints from pt. Continue to monitor. Call light in reach. Bed alarm on. Intentional rounding.
[2016-11-05] MEDS: Pantoprazole 40 mg ER24 Tablet PO SCH (05:52)
[2016-11-05] MEDS: Insulin LISPRO 300 Unit/3 mL Inj SUBQ SCH ×4 (08:00→20:54)
[2016-11-05] MEDS: Albuterol-Ipratropium 120 Spray 4 Gm Inhaler INHALATION SCH ×2 (08:09→21:04)
[2016-11-05] MEDS: Venlafaxine XR 75 mg ER24 Capsule PO SCH (08:10)
[2016-11-05] MEDS: Nystatin 100,000 Unit/Gm 15 Gm Powder TOPICAL SCH ×2 (08:11→21:05)
[2016-11-05] MEDS: Heparin 5,000 Unit/mL Inj SUBQ SCH ×2 (08:11→17:05)
--- NOTE | 2016-11-05 08:49 | NUR ---
ROSALIE signed. GRANT Sims
[2016-11-05] MEDS: Piper-Tazo 3.375 Gm/50 mL D5W Minibag Plus - Q8H over 4 hrs IV SCH ×2 (12:40)
--- NOTE | 2016-11-05 14:00 | PCM.PNMED ---
Subjective Date of Service Nov 05, 2016 Subjective denies any new issues/complaints Exam Vital Signs Vital Sign - Last Date Time Temp Pulse Resp B/P Pulse Ox O2 Delivery O2 Flow Rate FiO2 11/05/16 09:17 36.6 77 18 144/67 93 Room Air 11/03/16 03:56 2.00 Intake and Output 11/04/16 11/04/16 11/05/16 Cumulative From/Thru 15:00 23:00 07:00 10/31/16 19:39 - 11/05/16 05:53 Intake Total 735 ml 265 ml 4406 ml Output Total 2000 ml 0 ml 9000 ml Balance -1265 ml 265 ml -4594 ml Intake Oral 672 ml 200 ml 4092 ml IV Total 63 ml 65 ml 314 ml Output Urine Total 0 ml 0 ml 0 ml Ultrafiltrate 2000 ml 9000 ml # Bowel Movements 1 1 7 Exam General: Alert, Oriented X3, Cooperative, no distress Eyes: PERRLA, Scleral Anicteric Mouth: Mouth Normal, Mucous Membranes Moist/[place] Neck: Supple Chest & Lungs: CTA bilateral, chest wall normal. Cardiovascular: RRR Pulses: Dorsalis Pedi (present and equal) Abdomen: Soft, Non-tender, obese, Normoactive bowel tones. Musculoskeletal: Normal range of motion Extremities: trace pitting edema, excoriations noted Neurological: Grossly neurologically intact, Normal Speech Psych: Appropriate affect IVs and Medications Medications Reviewed: Medications were reviewed in detail Lab and Diagnostics Result Diagram: 11/04/16 0455 11/04/16 0455 Cardiac Echo Impressions 08/2016 Interpretation Summary The left ventricle is normal in size. The ejection fraction is estimated to be 60-65%. There has been no significant change in LV EF since the previous study. The right ventricle is borderline dilated. The right ventricular systolic function is normal. There is severe aortic stenosis (Paradoxically low gradient). The calculated aortic valve area is 1.0 cm2.The aortic valve area is 0.9 centimeters squared by planimetry. The peak aortic velocity is 3.6 m/sec. The aortic valve mean gradient is 32 mmHg. The peak aortic velocity on the previous exam was 3.8 m/sec. There is mild aortic regurgitation. Compared to the prior echo study, there has been no change in the severity of aortic regurgitation. There is trace tricuspid regurgitation. The right ventricular systolic pressure is estimated at 39 mmHg assuming a right atrial pressure of 3 mm Hg. Assessment & Plan 66 yo F with past medical history of DM2, HTN, ESRD on HD, CHF and CAD with CC of weakness transferred from [place] with findings of potassium of 8.4. # Suspected acute cellulitis present on admission. - ? left lower extremity and groin area vs simple yeast infection - Appreciate ID consult. Will followup with recs - Continue with empiric piperacillin-tazobactam - continue with Nystatin powder for suspected yeast infection - Procalcitonin significantly elevated but improving with current treatment. Followup repeat in am - MRSA negative # Acute hyperkalemia, present on admission. Resolved - had missed dialysis x2 prior to admission, due to weakness, discomfort groin - appreciate nephrology consult. will followup with recs. - further HD per nephrology recs # Diarrhea, acute, POA. Resolved. - stool studies negative - monitor fluid status # Acute Dyspnea, present on admission. Resolved - history of severe aortic stenosis, elevated bnp at OSH - concern for worsening CHF in the setting of missed dialysis - repeat limited ECHO on 11/01 showing EF 60-65% # Acute chest pain on 11/02/16. Resolved - Troponin only mildly elevated and steady. Elevated Trop is chronic and not significantly changed - EKG unremarkable - Echo unremarkable as noted above # Normocytic anemia, unknown chronicity - no acute blood loss - secondary to renal dysfunction # Endstage Renal disease on hemodialysis - nephrology consulted, dialysis immediately following admission # Chronic Atrial Fibrillation - monitor on telemetry - continue Cardizem for rate [id number] mg daily, also on Metoprolol 25 mg daily - no longer on anticoagulation with Coumadin. Patient reports stopped taking because of "not liking the side effects" - further followup and addressing anticoagulation by PCP as outpatient # Diabetes Type 2 with neuropathy - low correction Lispro algorithm - checking A1c to gauge control - determine Lantus dosing and continue # Severe Aortic Stenosis Patient recommended for TAVR procedure at [facility] # Coronary artery disease - continue Aspirin for antiplatelet therapy # Hypertension with hypotensive issues - continuing Midodrine as scheduled # Morbid Obesity with Obstructive Sleep apnea - continue CPAP at night # Depression, Anxiety with Restless Leg Syndrome - Presumed stable - continue Ropinirole, Venlafaxine and Amitriptyline Dispo: 1-2 days pending continued improving procalcitonin GI Prophylaxis: Proton Pump Inhibitor VTE Prophylaxis: Sub-Q Heparin (Unfractionated) Resuscitation Status: CPR: Attempt Resuscitation Smith Jj Nov 05, 2016 14:00
--- NOTE | 2016-11-05 15:59 | NUR ---
Urine specimen In and out cath completed. Pt tolerated well, Urine sent. Call light in reach, will continue to monitor
[2016-11-05 17:07] LABS: APPEARANCE,URINE CLEAR (CLEAR,HAZY); COLOR,URINE DARK YELLOW (YELLOW)
[2016-11-05 17:08] LABS: PH,URINE 5.5 (5.0-8.0)
[2016-11-05 17:09] LABS: OCCULT BLOOD,URINE NEGATIVE (NEGATIVE); UROBILINOGEN,URINE NORMAL (NORMAL)
[2016-11-05] MEDS: Insulin GLARgine 100 Unit/mL Syringe SUBQ SCH (21:03)
[2016-11-06] VITALS (10 sets, daily range): BP systolic 119–179; BP diastolic 53–77; PULSE 67–84; RESP 16–22; O2SAT 93–99
[2016-11-06] MEDS: Heparin 5,000 Unit/mL Inj SUBQ SCH ×3 (00:40→17:04)
[2016-11-06] MEDS: Piper-Tazo 3.375 Gm/50 mL D5W Minibag Plus - Q8H over 4 hrs IV SCH ×4 (00:41→11:48)
[2016-11-06 05:37] LABS: BASOPHILS % (AUTO) 0.4 % (0-3); EOSINOPHILS % (AUTO) 5.8 % (0-5); MONOCYTES % (AUTO) 8.4 % (4-12); Mean Corpuscular Hemoglobin 28.6 pg (27.0-35.0); Mean Corpuscular Volume 94.6 fL (81-100); NEUTROPHILS % (AUTO) 54.6 % (40-74); Platelet Count 145 bil/L (150-400)
[2016-11-06] MEDS: Pantoprazole 40 mg ER24 Tablet PO SCH (05:44)
[2016-11-06] MEDS: Insulin LISPRO 300 Unit/3 mL Inj SUBQ SCH ×4 (07:12→21:02)
[2016-11-06] MEDS: Albuterol-Ipratropium 120 Spray 4 Gm Inhaler INHALATION SCH ×2 (08:00→21:22)
[2016-11-06] MEDS: Venlafaxine XR 75 mg ER24 Capsule PO SCH (08:01)
[2016-11-06] MEDS: Nystatin 100,000 Unit/Gm 15 Gm Powder TOPICAL SCH ×2 (08:02→21:22)
--- NOTE | 2016-11-06 11:35 | PCM.PNNEPH ---
Subjective Date of Service Nov 06, 2016 Subjective No acute issue overnight. Procalcitonin trended. no CP/SOB. Exam Vital Signs Vital Sign - Last Date Time Temp Pulse Resp B/P Pulse Ox O2 Delivery O2 Flow Rate FiO2 11/06/16 10:29 67 11/06/16 10:10 Supplement Oxygen 11/06/16 09:00 36.6 18 179/77 96 11/03/16 03:56 2.00 Intake and Output 11/05/16 11/05/16 11/06/16 Cumulative From/Thru 15:00 23:00 07:00 10/31/16 19:39 - 11/06/16 05:39 Intake Total 836 ml 200 ml 5442 ml Output Total 0 ml 0 ml 9000 ml Balance 836 ml 200 ml -3558 ml Intake Oral 836 ml 200 ml 5128 ml IV Total 314 ml Output Urine Total 0 ml 0 ml 0 ml Ultrafiltrate 9000 ml # Bowel Movements 0 1 8 Exam General appearance: Obese, lying in bed comfortably. NAD. Awake, alert. HEENT: No pallor. No jaundice. No JVD. Moist mucous membranes. Heart: Regular rate and rhythm. Normal S1, S2. Systolic murmur noted. Lungs: Equal breath sounds bilaterally. No wheezing. No rhonchi at the moment. Abdomen: Soft, obese, active bowel sounds. Nontender, nondistended. No hepatosplenomegaly. Extremities: Trace edema on the lower extremity. Left AVF good thrill and bruits. Lab and Diagnostics Result Diagram: 11/06/16 0503 11/06/16 0503 Cardiac Echo Impressions 08/2016 Interpretation Summary The left ventricle is normal in size. The ejection fraction is estimated to be 60-65%. There has been no significant change in LV EF since the previous study. The right ventricle is borderline dilated. The right ventricular systolic function is normal. There is severe aortic stenosis (Paradoxically low gradient). The calculated aortic valve area is 1.0 cm2.The aortic valve area is 0.9 centimeters squared by planimetry. The peak aortic velocity is 3.6 m/sec. The aortic valve mean gradient is 32 mmHg. The peak aortic velocity on the previous exam was 3.8 m/sec. There is mild aortic regurgitation. Compared to the prior echo study, there has been no change in the severity of aortic regurgitation. There is trace tricuspid regurgitation. The right ventricular systolic pressure is estimated at 39 mmHg assuming a right atrial pressure of 3 mm Hg. Plan Impression ASSESSMENT: 1. Hyperkalemia. Resolved. 2. End-stage renal disease, on hemodialysis. 3. Elevation of procalcitonin - unclear source of infection. - Suspected skin and soft tissue infection. - UA NG to date. 4. Type 2 diabetes with renal manifestation. 5. Hypertension with hypertensive nephrosclerosis. 6. Renal osteodystrophy. 7. Chronic atrial fibrillation. 8. History of severe aortic stenosis. 9. New-onset chest pain with mild elevation of serum troponin. Plan: Next HD on Sunday. Follow ID recommendation. Jennifer Lozada MD Nov 06, 2016 11:35
--- NOTE | 2016-11-06 13:57 | PCM.PNMED ---
Subjective Date of Service Nov 06, 2016 Subjective denies any new issues/complaints Exam Vital Signs Vital Sign - Last Date Time Temp Pulse Resp B/P Pulse Ox O2 Delivery O2 Flow Rate FiO2 11/06/16 12:59 36.4 73 16 132/62 98 Room Air 11/03/16 03:56 2.00 Intake and Output 11/05/16 11/05/16 11/06/16 Cumulative From/Thru 15:00 23:00 07:00 10/31/16 19:39 - 11/06/16 05:39 Intake Total 836 ml 200 ml 5442 ml Output Total 0 ml 0 ml 9000 ml Balance 836 ml 200 ml -3558 ml Intake Oral 836 ml 200 ml 5128 ml IV Total 314 ml Output Urine Total 0 ml 0 ml 0 ml Ultrafiltrate 9000 ml # Bowel Movements 0 1 8 Exam General: Alert, Oriented X3, Cooperative, no distress Eyes: PERRLA, Scleral Anicteric Mouth: Mouth Normal, Mucous Membranes Moist/[place] Neck: Supple Chest & Lungs: CTA bilateral, chest wall normal. Cardiovascular: RRR Pulses: Dorsalis Pedi (present and equal) Abdomen: Soft, Non-tender, obese, Normoactive bowel tones. Musculoskeletal: Normal range of motion Extremities: trace pitting edema, excoriations noted Neurological: Grossly neurologically intact, Normal Speech Psych: Appropriate affect IVs and Medications Medications Reviewed: Medications were reviewed in detail Lab and Diagnostics Result Diagram: 11/06/16 0503 11/06/16 0503 Cardiac Echo Impressions 08/2016 Interpretation Summary The left ventricle is normal in size. The ejection fraction is estimated to be 60-65%. There has been no significant change in LV EF since the previous study. The right ventricle is borderline dilated. The right ventricular systolic function is normal. There is severe aortic stenosis (Paradoxically low gradient). The calculated aortic valve area is 1.0 cm2.The aortic valve area is 0.9 centimeters squared by planimetry. The peak aortic velocity is 3.6 m/sec. The aortic valve mean gradient is 32 mmHg. The peak aortic velocity on the previous exam was 3.8 m/sec. There is mild aortic regurgitation. Compared to the prior echo study, there has been no change in the severity of aortic regurgitation. There is trace tricuspid regurgitation. The right ventricular systolic pressure is estimated at 39 mmHg assuming a right atrial pressure of 3 mm Hg. Assessment & Plan 66 yo F with past medical history of DM2, HTN, ESRD on HD, CHF and CAD with CC of weakness transferred from [place] with findings of potassium of 8.4. # Suspected acute cellulitis present on admission. - ? left lower extremity and groin area vs simple yeast infection - Appreciate ID consult. Will followup with recs - Continue with empiric piperacillin-tazobactam - continue with Nystatin powder for suspected yeast infection - Procalcitonin significantly elevated but continuing to improve with current treatment. Followup repeat in am - MRSA negative # Endstage Renal disease on hemodialysis - Appreciate nephrology consult. Will followup with recs - Next HD planned for tomorrow per nephrology # Acute hyperkalemia, present on admission. Resolved - had missed dialysis x2 prior to admission, due to weakness, discomfort groin - appreciate nephrology consult. will followup with recs. - further HD per nephrology recs # Diarrhea, acute, POA. Resolved. - stool studies negative - monitor fluid status # Acute Dyspnea, present on admission. Resolved - history of severe aortic stenosis, elevated bnp at OSH - concern for worsening CHF in the setting of missed dialysis - repeat limited ECHO on 11/01 showing EF 60-65% # Acute chest pain on 11/02/16. Resolved - Troponin only mildly elevated and steady. Elevated Trop is chronic and not significantly changed - EKG unremarkable - Echo unremarkable as noted above # Normocytic anemia, unknown chronicity - no acute blood loss - secondary to renal dysfunction # Chronic Atrial Fibrillation - monitor on telemetry - continue Cardizem for rate [id number] mg daily, also on Metoprolol 25 mg daily - no longer on anticoagulation with Coumadin. Patient reports stopped taking because of "not liking the side effects" - further followup and addressing anticoagulation by PCP as outpatient # Diabetes Type 2 with neuropathy - low correction Lispro algorithm - checking A1c to gauge control - determine Lantus dosing and continue # Severe Aortic Stenosis Patient recommended for [facility] procedure at [facility] # Coronary artery disease - continue Aspirin for antiplatelet therapy # Hypertension with hypotensive issues - continuing Midodrine as scheduled # Morbid Obesity with Obstructive Sleep apnea - continue CPAP at night # Depression, Anxiety with Restless Leg Syndrome - Presumed stable - continue Ropinirole, Venlafaxine and Amitriptyline Dispo: 1-2 days pending continued improving procalcitonin GI Prophylaxis: Proton Pump Inhibitor VTE Prophylaxis: Sub-Q Heparin (Unfractionated) Resuscitation Status: CPR: Attempt Resuscitation Smith Jj Nov 06, 2016 13:57
--- NOTE | 2016-11-06 15:02 | NUR ---
Social Work-readiness for discharge: Data:EMR Reviewed. Pt is on day6 of hospitalization for kidney failure per H&P. Pt is not medically stable anticipate 1-2 more days. Pt resides at home with her daughter and brother in [place]. Pt goes to dialysis T/TH/Sun. Per RN notes, pt has been up using fww in room SW received a call from HCS worker Nora, who states that pt zavala snot have RONY, that she was assigned when pt was in the SNF. SW faxed in new expedited referral for inhome care. SW confirmed plan of home no needs. No discharge needs identified. SW will continue to follow if needs arise. Assessment:pt who is independent at baseline. Plan:Pt to discharge home when medically stable via POV. Expedited referral has been faxed in for inhome care. No discharge needs identified. SW will continue to follow if needs arise. Milka Mijares MSW
--- NOTE | 2016-11-06 18:06 | PROG NOTE ---
[address] [address] PROGRESS NOTE PATIENT: CHRIS COREA : 1950 MR#: [id number] ADMIT: 10/31/2016 JOB ID: [id number] DATE: 11/06/2016 REASON FOR FOLLOWUP: Grossly elevated procalcitonin without obvious cause. Recall this is the dialysis patient who has had a few painful lesions on the forehead and especially over the right eye but no overt symptoms or focal symptoms of infection anywhere. She was found to have an extremely elevated procalcitonin and she has been treated broad-spectrum with Zosyn without any particular target for our treatment. On this treatment, her procalcitonin is getting better. Today, the patient tells me she had some night sweats and so-called hot flashes this morning in association with rather severe shortness of breath. This has now passed and she is feeling okay again but she is feeling very nervous about going home with the possibility of more of these hot flash/shortness of breath episodes transpiring. PHYSICAL EXAM: Reveals an obese elderly woman in no acute distress. Sitting up, reading a book and watching TV. Temp 36.4, pulse 73, respiratory rate 16, blood pressure 132/62. She is saturating well on room air. Examination of the head unremarkable. The eyes without conjunctivitis. Oral cavity benign. Lungs fairly clear. No wheezing appreciated. Cardiac tones distant but without change. Abdomen soft, nontender. No skin rash. LABORATORIES: Include a white count 7500. Normal diff except 6% eosinophils, creatinine 6.9. Procalcitonin has gone from 70 to 60 to 50, to 20 today, though it is falling by about 10 a day but we still have no explanation for its source. This fall indicates, however, that it is likely we are treating a bacterial process. Micro studies remain completely unrevealing. We have negative stool PCR, negative MRSA PCR of the nares, negative blood cultures, negative urine culture. Imaging has also not been helpful. IMPRESSION: This is an odd case of an elderly obese woman on dialysis who does not appear to have any infection. She has no fever. Normal white count and basically looks okay but has tremendously elevated procalcitonin which seemed to be getting better with Zosyn. The only possible source of infection is the very minimal erythema on her forehead which she claims produced a small amount of a thin whitish liquid at one point but which are almost completely gone at this point. RECOMMENDATIONS: 1. Will continue with Zosyn. 2. Continue to watch this patient presumably for another day or two. When I spoke to the patient about going home today she stated because of the hot flash/shortness of breath episodes that she just could not go today and will continue to watch.
[2016-11-06] MEDS: Insulin GLARgine 100 Unit/mL Syringe SUBQ SCH (21:23)
[2016-11-07] VITALS (7 sets, daily range): BP systolic 121–144; BP diastolic 49–74; PULSE 76–88; RESP 16–20; O2SAT 94–100
[2016-11-07] MEDS: Piper-Tazo 3.375 Gm/50 mL D5W Minibag Plus - Q8H over 4 hrs IV SCH ×4 (00:31→12:12)
[2016-11-07] MEDS: Heparin 5,000 Unit/mL Inj SUBQ SCH ×3 (00:31→16:47)
[2016-11-07] MEDS: Pantoprazole 40 mg ER24 Tablet PO SCH (05:56)
[2016-11-07] MEDS: Insulin LISPRO 300 Unit/3 mL Inj SUBQ SCH ×4 (07:11→21:41)
[2016-11-07] MEDS: Albuterol-Ipratropium 120 Spray 4 Gm Inhaler INHALATION SCH ×2 (07:16→21:49)
[2016-11-07] MEDS: Venlafaxine XR 75 mg ER24 Capsule PO SCH (07:17)
--- NOTE | 2016-11-07 07:28 | NUR ---
dialysis pt off floor for dialysis, medications held per dialysis nurse. pt transported in bed by [employer].
[2016-11-07] MEDS: Nystatin 100,000 Unit/Gm 15 Gm Powder TOPICAL SCH ×2 (08:30→21:49)
--- NOTE | 2016-11-07 10:29 | PCM.PNNEPH ---
Bad tableDate of Service Nov 07, 2016 Subjective seen during HD, no acute issue. Procalcitonin trended. Bad tableVital Signs Vital Sign - Last Date Time Temp Pulse Resp B/P Pulse Ox O2 Delivery O2 Flow Rate FiO2 11/07/16 10:12 81 11/07/16 04:03 36.7 20 131/49 99 Nasal Cannula 1.00 Intake and Output 11/06/16 11/06/16 11/07/16 Cumulative From/Thru 15:00 23:00 07:00 10/31/16 19:39 - 11/07/16 06:22 Intake Total 237 ml 690 ml 6369 ml Output Total 0 ml 0 ml 9000 ml Balance 237 ml 690 ml -2631 ml Intake Oral 237 ml 496 ml 5861 ml IV Total 194 ml 508 ml Output Urine Total 0 ml 0 ml 0 ml Ultrafiltrate 9000 ml # Bowel Movements 0 8 Exam General appearance: Obese, lying in bed comfortably. NAD. Awake, alert. HEENT: No pallor. No jaundice. No JVD. Moist mucous membranes. Heart: Regular rate and rhythm. Normal S1, S2. Systolic murmur noted. Lungs: Equal breath sounds bilaterally. No wheezing. No rhonchi at the moment. Abdomen: Soft, obese, active bowel sounds. Nontender, nondistended. No hepatosplenomegaly. Extremities: Trace edema on the lower extremity. Left AVF good thrill and bruits. Lab and Diagnostics Cardiac Echo Impressions 08/2016 Interpretation Summary The left ventricle is normal in size. The ejection fraction is estimated to be 60-65%. There has been no significant change in LV EF since the previous study. The right ventricle is borderline dilated. The right ventricular systolic function is normal. There is severe aortic stenosis (Paradoxically low gradient). The calculated aortic valve area is 1.0 cm2.The aortic valve area is 0.9 centimeters squared by planimetry. The peak aortic velocity is 3.6 m/sec. The aortic valve mean gradient is 32 mmHg. The peak aortic velocity on the previous exam was 3.8 m/sec. There is mild aortic regurgitation. Compared to the prior echo study, there has been no change in the severity of aortic regurgitation. There is trace tricuspid regurgitation. The right ventricular systolic pressure is estimated at 39 mmHg assuming a right atrial pressure of 3 mm Hg. Bad tableImpression ASSESSMENT: 1. Hyperkalemia. Resolved. 2. End-stage renal disease, on hemodialysis. 4 hr, UF 2-3L, DFR 600, BFR 400 Revaclear, AVF, 2K, 35HCO3 3. Elevation of procalcitonin - unclear source of infection. - Suspected skin and soft tissue infection. - UA NG to date. 4. Type 2 diabetes with renal manifestation. 5. Hypertension with hypertensive nephrosclerosis. 6. Renal osteodystrophy. 7. Chronic atrial fibrillation. 8. History of severe aortic stenosis. 9. New-onset chest pain with mild elevation of serum troponin. Plan: Per renal standpoint, she can be d/c'd home. Abx as per ID. 9. New-onset chest pain with mild elevation of serum troponin. Plan: Per renal standpoint, she can be d/c'd home. Abx as per ID. Jennifer Lozada MD Nov 07, 2016 10:29
--- NOTE | 2016-11-07 11:49 | PCM.PNMED ---
Subjective Date of Service Nov 07, 2016 Subjective denies any new issues/complaints Exam Vital Signs Vital Sign - Last Date Time Temp Pulse Resp B/P Pulse Ox O2 Delivery O2 Flow Rate FiO2 11/07/16 10:12 81 11/07/16 04:03 36.7 20 131/49 99 Nasal Cannula 1.00 Intake and Output 11/06/16 11/06/16 11/07/16 Cumulative From/Thru 15:00 23:00 07:00 10/31/16 19:39 - 11/07/16 06:22 Intake Total 237 ml 690 ml 6369 ml Output Total 0 ml 0 ml 9000 ml Balance 237 ml 690 ml -2631 ml Intake Oral 237 ml 496 ml 5861 ml IV Total 194 ml 508 ml Output Urine Total 0 ml 0 ml 0 ml Ultrafiltrate 9000 ml # Bowel Movements 0 8 Exam General: Alert, Oriented X3, Cooperative, no distress Eyes: PERRLA, Scleral Anicteric Mouth: Mouth Normal, Mucous Membranes Moist/[place] Neck: Supple Chest & Lungs: CTA bilateral, chest wall normal. Cardiovascular: RRR Pulses: Dorsalis Pedi (present and equal) Abdomen: Soft, Non-tender, obese, Normoactive bowel tones. Musculoskeletal: Normal range of motion Extremities: trace pitting edema, excoriations noted Neurological: Grossly neurologically intact, Normal Speech Psych: Appropriate affect IVs and Medications Medications Reviewed: Medications were reviewed in detail Lab and Diagnostics Result Diagram: 11/06/16 0503 11/07/16 0510 Cardiac Echo Impressions 08/2016 Interpretation Summary The left ventricle is normal in size. The ejection fraction is estimated to be 60-65%. There has been no significant change in LV EF since the previous study. The right ventricle is borderline dilated. The right ventricular systolic function is normal. There is severe aortic stenosis (Paradoxically low gradient). The calculated aortic valve area is 1.0 cm2.The aortic valve area is 0.9 centimeters squared by planimetry. The peak aortic velocity is 3.6 m/sec. The aortic valve mean gradient is 32 mmHg. The peak aortic velocity on the previous exam was 3.8 m/sec. There is mild aortic regurgitation. Compared to the prior echo study, there has been no change in the severity of aortic regurgitation. There is trace tricuspid regurgitation. The right ventricular systolic pressure is estimated at 39 mmHg assuming a right atrial pressure of 3 mm Hg. Assessment & Plan 66 yo F with past medical history of DM2, HTN, ESRD on HD, CHF and CAD with CC of weakness transferred from [facility] with findings of potassium of 8.4. # Suspected acute cellulitis present on admission. - ? left lower extremity and groin area vs simple yeast infection - Appreciate ID consult. Will followup with recs - Continue with empiric piperacillin-tazobactam - continue with Nystatin powder for suspected yeast infection - Procalcitonin significantly elevated but continuing to improve with current treatment. Followup repeat in am - MRSA negative # Endstage Renal disease on hemodialysis - Appreciate nephrology consult. Will followup with recs - Receiving HD today - Next HD per nephrology # Acute hyperkalemia, present on admission. Resolved - had missed dialysis x2 prior to admission, due to weakness, discomfort groin - appreciate nephrology consult. will followup with recs. # Diarrhea, acute, POA. Resolved. - stool studies negative - monitor fluid status # Acute Dyspnea, present on admission. Resolved - history of severe aortic stenosis, elevated bnp at OSH - concern for worsening CHF in the setting of missed dialysis - repeat limited ECHO on 11/01 showing EF 60-65% # Acute chest pain on 11/02/16. Resolved - Troponin only mildly elevated and steady. Elevated Trop is chronic and not significantly changed - EKG unremarkable - Echo unremarkable as noted above # Normocytic anemia, unknown chronicity - no acute blood loss - secondary to renal dysfunction # Chronic Atrial Fibrillation - monitor on telemetry - continue Cardizem for rate [id number] mg daily, also on Metoprolol 25 mg daily - no longer on anticoagulation with Coumadin. Patient reports stopped taking because of "not liking the side effects" - further followup and addressing anticoagulation by PCP as outpatient # Diabetes Type 2 with neuropathy - low correction Lispro algorithm - checking A1c to gauge control - determine Lantus dosing and continue # Severe Aortic Stenosis Patient recommended for TAVR procedure at [facility] # Coronary artery disease - continue Aspirin for antiplatelet therapy # Hypertension with hypotensive issues - continuing Midodrine as scheduled # Morbid Obesity with Obstructive Sleep apnea - continue CPAP at night # Depression, Anxiety with Restless Leg Syndrome - Presumed stable - continue Ropinirole, Venlafaxine and Amitriptyline Dispo: Likely home tomorrow pending continued improved procalcitonin and ID clearance GI Prophylaxis: Proton Pump Inhibitor VTE Prophylaxis: Sub-Q Heparin (Unfractionated) VTE Mechanical Devices: Venous Foot Pump Resuscitation Status: CPR: Attempt Resuscitation Smith Jj Nov 07, 2016 11:49
--- NOTE | 2016-11-07 12:22 | NUR ---
Hypertensive per dialysis nurse-pt was hypertensive during the procedure. systolic up to 190-200
--- NOTE | 2016-11-07 13:02 | NUR ---
dialysis note 4 hr HD tx 2000ml net UF removed 2 15 g needles to SYMONE fistula QB 450 See DTR for complete vitals trends Pt continues to be increasingly hypertensive thru tx Sureseals/clamps X15 mins post tx for extended art bleeding Report given and pt returned to floor stable.
--- NOTE | 2016-11-07 13:27 | PROG NOTE ---
[address] [address] PROGRESS NOTE PATIENT: CHRIS COREA : 1950 MR#: [id number] ADMIT: 10/31/2016 JOB ID: [id number] DATE: 11/07/2016 REASON FOR FOLLOWUP: Unexplained elevated procalcitonin in a dialysis patient. HISTORY OF PRESENT ILLNESS: The patient is a 66-year-old woman, who has been hospitalized now for the past 7-1/2 days primarily for what appeared to be a bacterial process. Her symptoms have been quite vague, however, and it has been unclear exactly what is going on, other than that she had an extremely elevated procalcitonin which is only falling slowly with renally adjusted doses of Zosyn. The patient has pretty consistently complained of forehead pain and she still has some of that today related to four shallow scattered lesions across the forehead, none of which have ever appeared very infected. Otherwise, she notes she has a sore throat today. She just feels tired and that she is not ready to go home. She denies significant cough or shortness of breath. She has no abdominal complaints. She notes she is too weak to get up by herself. PHYSICAL EXAMINATION: Reveals an afebrile woman. She has been afebrile since admission. Temperature 36.2 this morning just post dialysis. Pulse 81, respiratory rate 20, blood pressure 131/49. She is in no acute distress. Examination of the mental status reveals it to be normal. The lesions on the forehead are mildly erythematous but they look more benign with each passing day. Oral cavity is without any significant pharyngitis. Lungs relatively clear with poor excursion. Cardiac tones with a high-pitched, 2/6 systolic murmur which has been present since admission. Note that she has already had an echo which shows some aortic stenosis. The abdomen is obese, soft, and nontender. The fistula in the left upper extremity looks benign. LABORATORIES: Include white count 7500 which is stable, 5% eosinophils. Creatinine 9.04. Urinalysis with 6-10 white cells. Going back throughout her stay, we have basically negative cultures, negative MRSA screen, negative blood cultures, negative urine culture, and negative stool PCR. No new imaging of note. IMPRESSION: This continues to be a somewhat baffling case of an elderly woman on dialysis who has elevated procalcitonin but otherwise appears quite uninfected. She maintains that she is not ready for discharge yet as she is too weak and has a sore throat with just generalized malaise. It is possible that her high procalcitonins I suppose proceeded from the infection in her forehead which was perhaps more severe than we had realized, but that does seem unlikely. Note that her procalcitonin is just continuing to steadily fall. It was as high as 70 a week ago and it is now down to 15, so basically an 80% reduction but still quite elevated even for one in renal failure. RECOMMENDATIONS: 1. Until the patient is ready for discharge, I would keep her on Zosyn as it does seem to be having a beneficial effect on her very elevated procalcitonin. 2. The patient could probably be reasonably discharged at any time. I would be inclined to give her cefazolin with each dialysis for perhaps another week in association with an oral agent such as probably Cipro for another week or so. The Ancef would be given on the 2-2-3 formula with 2 g after the Sunday and dialysis episodes and 3 g after the Sunday dialysis for one more week. The Cipro could just be 500 a day. 3. I have discussed this case with the renal work and family life consultant as well as Dr. Jj. 4. Will continue to follow with you as long as she is here in the hospital.
--- NOTE | 2016-11-07 13:46 | NUR ---
[facility] signed
--- NOTE | 2016-11-07 16:18 | NUR ---
not wanting to get up This RN has tried several times to get the pt up and moving. pt refuses and wants to just lay down and watch TV. pt refusing to get up to the side of bed for meals.
[2016-11-07] MEDS: Insulin GLARgine 100 Unit/mL Syringe SUBQ SCH (21:53)
[2016-11-08] MEDS: Piper-Tazo 3.375 Gm/50 mL D5W Minibag Plus - Q8H over 4 hrs IV SCH ×4 (00:24→12:54)
[2016-11-08] MEDS: Heparin 5,000 Unit/mL Inj SUBQ SCH ×3 (00:24→17:00)
[2016-11-08 03:11] VITALS: PULSE 88; RESP 20; O2SAT 96
[2016-11-08 04:31] VITALS: BP 136/54; PULSE 83; RESP 18; O2SAT 99
--- NOTE | 2016-11-08 05:32 | NUR ---
Activity: Pt up to the B[facility] this morning. Requiring some assistance to get from lying to sitting. SpO2 decreased to 86-88% on 1L with activity.
[2016-11-08] MEDS: Pantoprazole 40 mg ER24 Tablet PO SCH (06:40)
[2016-11-08] MEDS: Insulin LISPRO 300 Unit/3 mL Inj SUBQ SCH ×4 (07:23→22:00)
[2016-11-08] MEDS: Venlafaxine XR 75 mg ER24 Capsule PO SCH (07:56)
[2016-11-08] MEDS: Nystatin 100,000 Unit/Gm 15 Gm Powder TOPICAL SCH ×2 (08:02→22:25)
[2016-11-08] MEDS: Albuterol-Ipratropium 120 Spray 4 Gm Inhaler INHALATION SCH ×2 (08:02→22:25)
[2016-11-08 08:15] VITALS: PULSE 81; RESP 18; O2SAT 96
--- NOTE | 2016-11-08 09:55 | NUR ---
Off Floor Pt off floor for HD r/t labs K 6.9.
--- NOTE | 2016-11-08 10:26 | NUR ---
Critical Labs: Cr. 5.93, expected value. Potassium 4.9, which is considerably lower than first reported value. Notified HD RN, as pt having HD r/t Potassium.
--- NOTE | 2016-11-08 11:32 | PCM.PNNEPH ---
Subjective Date of Service Nov 08, 2016 Subjective Last HD yesterday. K 6.9. Hemolyzed. Repeat BMP, K was 4.9. No CP/SOB. HD was already started. Exam Vital Signs Vital Sign - Last Date Time Temp Pulse Resp B/P Pulse Ox O2 Delivery O2 Flow Rate FiO2 11/08/16 08:40 Supplement Oxygen 11/08/16 08:15 81 18 96 1.00 98 11/08/16 04:31 36.8 136/54 Intake and Output 11/07/16 11/07/16 11/08/16 Cumulative From/Thru 15:00 23:00 07:00 10/31/16 19:39 - 11/08/16 06:11 Intake Total 75 ml 306 ml 6750 ml Output Total 2000 ml 0 ml 34859 ml Balance -2000 ml 75 ml 306 ml -4250 ml Intake Oral 236 ml 6097 ml IV Total 75 ml 70 ml 653 ml Output Urine Total 0 ml 0 ml Ultrafiltrate 2000 ml 82976 ml # Bowel Movements 8 Exam General appearance: Obese, lying in bed comfortably. NAD. Awake, alert. HEENT: No pallor. No jaundice. No JVD. Moist mucous membranes. Heart: Regular rate and rhythm. Normal S1, S2. Systolic murmur noted. Lungs: Equal breath sounds bilaterally. No wheezing. No rhonchi at the moment. Abdomen: Soft, obese, active bowel sounds. Nontender, nondistended. No hepatosplenomegaly. Extremities: Trace edema on the lower extremity. Left AVF good thrill and bruits. Lab and Diagnostics Result Diagram: 11/06/16 0503 11/08/16 0930 Cardiac Echo Impressions 08/2016 Interpretation Summary The left ventricle is normal in size. The ejection fraction is estimated to be 60-65%. There has been no significant change in LV EF since the previous study. The right ventricle is borderline dilated. The right ventricular systolic function is normal. There is severe aortic stenosis (Paradoxically low gradient). The calculated aortic valve area is 1.0 cm2.The aortic valve area is 0.9 centimeters squared by planimetry. The peak aortic velocity is 3.6 m/sec. The aortic valve mean gradient is 32 mmHg. The peak aortic velocity on the previous exam was 3.8 m/sec. There is mild aortic regurgitation. Compared to the prior echo study, there has been no change in the severity of aortic regurgitation. There is trace tricuspid regurgitation. The right ventricular systolic pressure is estimated at 39 mmHg assuming a right atrial pressure of 3 mm Hg. Plan Impression ASSESSMENT: 1. Hyperkalemia. hemolyzed. K 6.9 > 4.9. 2. End-stage renal disease, on hemodialysis. 3. Elevation of procalcitonin - unclear source of infection. - Suspected skin and soft tissue infection. - UA NG to date. 4. Type 2 diabetes with renal manifestation. 5. Hypertension with hypertensive nephrosclerosis. 6. Renal osteodystrophy. 7. Chronic atrial fibrillation. 8. History of severe aortic stenosis. 9. New-onset chest pain with mild elevation of serum troponin. Plan: HD today for 2 hr, 2K. Next HD in am. Jennifer Lozada MD Nov 08, 2016 11:32
--- NOTE | 2016-11-08 12:25 | NUR ---
Dialysis note 2 hr HD tx K+ checked this am to be 6.9, pt put on HD for extra tx before rechecked for hemolization and found K+ to be 4.9. Dr. Jones notified and decided to just complete 2 hrs since pt was already on QB 500 thru SYMONE fistula See DTR for complete vitals trends Continues to be increasingly hypertensive though tx which has again been reported to the nurse. Pt slept thru tx Sureseals/clamps X 15 mins post tx Report given and pt returned to floor stable
[2016-11-08] MEDS ORDERED: 0.9% Sodium Chloride 100 ML ONE (12:49)
[2016-11-08 12:59] VITALS: BP 132/56; PULSE 82; RESP 18; O2SAT 99
--- NOTE | 2016-11-08 16:53 | PCM.PNMED ---
Subjective Date of Service Nov 08, 2016 Subjective Patient seen and examined today. She says she feels better. Vitals stable. Exam Vital Signs Vital Sign - Last Date Time Temp Pulse Resp B/P Pulse Ox O2 Delivery O2 Flow Rate FiO2 11/08/16 12:59 36.8 82 18 132/56 99 Nasal Cannula 1.00 11/08/16 08:15 98 Intake and Output 11/07/16 11/07/16 11/08/16 Cumulative From/Thru 15:00 23:00 07:00 10/31/16 19:39 - 11/08/16 06:11 Intake Total 75 ml 306 ml 6750 ml Output Total 2000 ml 0 ml 27650 ml Balance -2000 ml 75 ml 306 ml -4250 ml Intake Oral 236 ml 6097 ml IV Total 75 ml 70 ml 653 ml Output Urine Total 0 ml 0 ml Ultrafiltrate 2000 ml 59813 ml # Bowel Movements 8 Exam General: Alert, Oriented X3, Cooperative, no distress Eyes: PERRLA, Scleral Anicteric Mouth: Mouth Normal, Mucous Membranes Moist/[place] Neck: Supple Chest & Lungs: CTA bilateral, chest wall normal. Cardiovascular: RRR Pulses: Dorsalis Pedi (present and equal) Abdomen: Soft, Non-tender, obese, Normoactive bowel tones. Musculoskeletal: Normal range of motion. Erythema noticed on the LLE Extremities: trace pitting edema, excoriations noted Neurological: Grossly neurologically intact, Normal Speech Psych: Appropriate affect Lab and Diagnostics Result Diagram: 11/06/16 0503 11/08/16 0930 Cardiac Echo Impressions 08/2016 Interpretation Summary The left ventricle is normal in size. The ejection fraction is estimated to be 60-65%. There has been no significant change in LV EF since the previous study. The right ventricle is borderline dilated. The right ventricular systolic function is normal. There is severe aortic stenosis (Paradoxically low gradient). The calculated aortic valve area is 1.0 cm2.The aortic valve area is 0.9 centimeters squared by planimetry. The peak aortic velocity is 3.6 m/sec. The aortic valve mean gradient is 32 mmHg. The peak aortic velocity on the previous exam was 3.8 m/sec. There is mild aortic regurgitation. Compared to the prior echo study, there has been no change in the severity of aortic regurgitation. There is trace tricuspid regurgitation. The right ventricular systolic pressure is estimated at 39 mmHg assuming a right atrial pressure of 3 mm Hg. Assessment & Plan 66 yo F with past medical history of DM2, HTN, ESRD on HD, CHF and CAD with CC of weakness transferred from [place] with findings of potassium of 8.4. # Suspected acute cellulitis present on admission. - left lower extremity and groin area vs simple yeast infection - Appreciate ID consult. recs : to continue zosyn inpatient, once patient discharged - Ancef would be given on the 2-2-3 formula with 2 g after the Sunday and dialysis episodes and 3 g after the Sunday dialysis for one more week. The Cipro could just be 500 a day. - continue with Nystatin powder for suspected yeast infection - Procalcitonin significantly elevated at admission (ESRD might have contributed to the extremly large values), trended down - MRSA negative # Endstage Renal disease on hemodialysis - Appreciate nephrology consult. Will followup with recs - Receiving HD t - Next HD per nephrology # Acute hyperkalemia - K 6.9 today, hemolysed, repeate WNL - appreciate nephrology consult. will followup with recs. # Diarrhea, acute, POA. Resolved. - stool studies negative - monitor fluid status # Acute Dyspnea, present on admission. Resolved - history of severe aortic stenosis, elevated bnp at OSH - concern for worsening CHF in the setting of missed dialysis - repeat limited ECHO on 11/01 showing EF 60-65% # Acute chest pain on 11/02/16. Resolved - Troponin only mildly elevated and steady. Elevated Trop is chronic and not significantly changed - EKG unremarkable - Echo unremarkable as noted above # Normocytic anemia, unknown chronicity - no acute blood loss - secondary to renal dysfunction # Chronic Atrial Fibrillation - monitor on telemetry, rate controlled - on Metoprolol 25 mg daily - no longer on anticoagulation with Coumadin. Patient reports stopped taking because of "not liking the side effects" - further followup and addressing anticoagulation by PCP as outpatient # Diabetes Type 2 with neuropathy - low correction Lispro algorithm - checking A1c to gauge control - determine Lantus dosing and continue # Severe Aortic Stenosis Patient recommended for TAVR procedure at [facility] # Coronary artery disease - continue Aspirin for antiplatelet therapy # Hypertension with hypotensive issues - continuing Midodrine as scheduled # Morbid Obesity with Obstructive Sleep apnea - continue CPAP at night # Depression, Anxiety with Restless Leg Syndrome - Presumed stable - continue Ropinirole, Venlafaxine and Amitriptyline Dispo: Likely home tomorrow GI Prophylaxis: Proton Pump Inhibitor VTE Prophylaxis: Sub-Q Heparin (Unfractionated) VTE Mechanical Devices: Venous Foot Pump Resuscitation Status: CPR: Attempt Resuscitation Inder Rosales MD Nov 08, 2016 16:53 Inder Rosales MD Nov 08, 2016 16:53
[2016-11-08 20:57] VITALS: PULSE 81; RESP 18; O2SAT 98
[2016-11-08 21:00] VITALS: BP 135/57; PULSE 79; RESP 20; O2SAT 97
[2016-11-08] MEDS ORDERED: MeTOProlol XL 25 mg ER24 Tablet PO SCH (21:00)
[2016-11-08] MEDS: Insulin GLARgine 100 Unit/mL Syringe SUBQ SCH (22:28)
[2016-11-09] MEDS: Piper-Tazo 3.375 Gm/50 mL D5W Minibag Plus - Q8H over 4 hrs IV SCH ×2 (00:13)
[2016-11-09] MEDS: Heparin 5,000 Unit/mL Inj SUBQ SCH ×3 (00:13→16:30)
--- NOTE | 2016-11-09 04:24 | NUR ---
Uneventful night: No reports of pain, does continue to report some shortness of breath with activity. Has not been out of bed tonight, was able to fall asleep quite early in the night and able to sleep between care. CPOX in place for O2 monitoring.
[2016-11-09 05:01] VITALS: BP 130/76; PULSE 63; RESP 18; O2SAT 100
[2016-11-09 06:01] LABS: BASOPHILS % (AUTO) 0.3 % (0-3); EOSINOPHILS % (AUTO) 4.1 % (0-5); MONOCYTES % (AUTO) 8.8 % (4-12); Mean Corpuscular Hemoglobin 28.8 pg (27.0-35.0); Mean Corpuscular Volume 94.2 fL (81-100); NEUTROPHILS % (AUTO) 60.7 % (40-74); Platelet Count 152 bil/L (150-400)
[2016-11-09] MEDS: Pantoprazole 40 mg ER24 Tablet PO SCH (06:19)
[2016-11-09 07:50] VITALS: PULSE 61; RESP 18; O2SAT 99
[2016-11-09] MEDS: Insulin LISPRO 300 Unit/3 mL Inj SUBQ SCH ×2 (08:00→12:00)
[2016-11-09] MEDS: Albuterol-Ipratropium 120 Spray 4 Gm Inhaler INHALATION SCH (08:26)
[2016-11-09] MEDS: Venlafaxine XR 75 mg ER24 Capsule PO SCH (08:26)
[2016-11-09] MEDS: Nystatin 100,000 Unit/Gm 15 Gm Powder TOPICAL SCH (08:26)
[2016-11-09 08:58] VITALS: BP 106/50; PULSE 69
[2016-11-09] MEDS ORDERED: Darbepoetin Alfa 100 mCg/0.5 mL Inj SUBQ ONE (09:00)
--- NOTE | 2016-11-09 11:23 | PCM.PNNEPH ---
Subjective Date of Service Nov 09, 2016 Subjective Seen during HD. No CP/SOB. Exam Vital Signs Vital Sign - Last Date Time Temp Pulse Resp B/P Pulse Ox O2 Delivery O2 Flow Rate FiO2 11/09/16 08:58 69 11/09/16 07:50 18 99 Nasal Cannula 1.00 11/09/16 05:01 36.3 130/76 11/08/16 08:15 98 Intake and Output 11/08/16 11/08/16 11/09/16 Cumulative From/Thru 15:00 23:00 07:00 10/31/16 19:39 - 11/09/16 06:11 Intake Total 1059 ml 450 ml 8259 ml Output Total 1000 ml 0 ml 0 ml 27345 ml Balance -1000 ml 1059 ml 450 ml -3741 ml Intake Oral 1000 ml 380 ml 7477 ml IV Total 59 ml 70 ml 782 ml Output Urine Total 0 ml 0 ml 0 ml Ultrafiltrate 1000 ml 79498 ml # Bowel Movements 1 9 Exam General appearance: Obese, lying in bed comfortably. NAD. Awake, alert. HEENT: No pallor. No jaundice. No JVD. Moist mucous membranes. Heart: Regular rate and rhythm. Normal S1, S2. Systolic murmur noted. Lungs: Equal breath sounds bilaterally. No wheezing. No rhonchi at the moment. Abdomen: Soft, obese, active bowel sounds. Nontender, nondistended. No hepatosplenomegaly. Extremities: Trace edema on the lower extremity. Left AVF good thrill and bruits. Lab and Diagnostics Result Diagram: 11/09/16 0523 11/09/16 0523 Cardiac Echo Impressions 08/2016 Interpretation Summary The left ventricle is normal in size. The ejection fraction is estimated to be 60-65%. There has been no significant change in LV EF since the previous study. The right ventricle is borderline dilated. The right ventricular systolic function is normal. There is severe aortic stenosis (Paradoxically low gradient). The calculated aortic valve area is 1.0 cm2.The aortic valve area is 0.9 centimeters squared by planimetry. The peak aortic velocity is 3.6 m/sec. The aortic valve mean gradient is 32 mmHg. The peak aortic velocity on the previous exam was 3.8 m/sec. There is mild aortic regurgitation. Compared to the prior echo study, there has been no change in the severity of aortic regurgitation. There is trace tricuspid regurgitation. The right ventricular systolic pressure is estimated at 39 mmHg assuming a right atrial pressure of 3 mm Hg. Plan Impression 1. Hyperkalemia. Resolved. 2. End-stage renal disease, on hemodialysis. 4 hr, UF 2-3L, DFR 600, BFR 400 Revaclear, AVF, 2K, 35HCO3 3. Elevation of procalcitonin - unclear source of infection. improving with Iv zosyn. - Suspected skin and soft tissue infection. - UA NG to date. 4. Type 2 diabetes with renal manifestation. 5. Hypertension with hypertensive nephrosclerosis. 6. Renal osteodystrophy. 7. Chronic atrial fibrillation. 8. History of severe aortic stenosis. 9. New-onset chest pain with mild elevation of serum troponin. Plan: Per renal standpoint, she can be d/c'd home. Aranesp 100 mcg subQ today. Abx as per ID. Jennifer Lozada MD Nov 09, 2016 11:23
--- NOTE | 2016-11-09 13:01 | PROG NOTE ---
[address] [address] PROGRESS NOTE PATIENT: CHRIS COREA : 1950 MR#: [id number] ADMIT: 10/31/2016 JOB ID: [id number] DATE: 11/09/2016 INFECTIOUS DISEASE FOLLOW UP NOTE: REASON FOR FOLLOWUP: Bacterial infection, site unknown. INTERVAL HISTORY: The patient continues to feel better on a day-by-day basis. Today, she has no fevers, no chills. No sweats. She denies cough, shortness of breath, abdominal pain, nausea or vomiting. No additional groin pain is reported. PHYSICAL EXAMINATION: Reveals an afebrile woman. Temperature 36.3, pulse 69, respiratory rate 18, blood pressure 130/76. She is saturating well on 1 L. I had the opportunity to see your while she was undergoing dialysis through a left upper extremity fistula which looks benign. Mental status is clear. Eyes without conjunctivitis. Oral cavity negative. Lungs clear. Cardiac tones without change. Abdomen soft and nontender. LABORATORIES: Include a CRP which is now down to a 5. Yesterday's was 8 and the day before that 15 so steady drop in the very elevated procalcitonin. Her white blood count is normal at 8600 with a normal differential and in terms of cultures we have nothing basically with negative blood, urine and stool studies. No new imaging is available. IMPRESSION: This is an unusual case of a woman on dialysis who presented with what sounds like a bacterial infection who was found to have an extremely high procalcitonin but no real localizing findings. An extensive search for soft tissue infections proved to be fruitless and she has gotten steadily better with Zosyn. At this point, she is ready for discharge and I think we will need to continue on some fairly broad-spectrum antibiotics as we really have no understanding of what the nature of her infection was. RECOMMENDATIONS: 1. The patient can stop her Zosyn today. 2. I would give her 2 g of Ancef today when she finishes dialysis and then 3 g of Ancef on November 11 which will be Sunday's dialysis session at the end of the treatment. On November 14 and , she should receive 2 g of Ancef at the end of each of those sessions and I have written those orders. This will provide high levels of Ancef for least another seven or eight days to complete treatment for whatever bacterial infection we have encountered. 3. Though I am less confident in this recommendation, it is reasonable to give her 500 or so of Cipro a day for about one more week. This will provide some enhanced gram-negative coverage to the Ancef. 4. I think the patient is ready for discharge today. 5. ID will go ahead and sign off as of today, but thank you very much for involving me in this most complex case.
--- NOTE | 2016-11-09 13:30 | NUR ---
Dialysis note: 4 hrs tx 3000 ml net UF MARILYN fistula, accessed w/ no problems Pls see DTR for VS details Qb 400-500 Heparin given O2 @ 2L via NC on Tolerated tx, slept at intervals Fistula needle sites clotted w/in 10 min Stable condition at end of tx Report given to Nichole ZHOU
[2016-11-09] MEDS ORDERED: CeFAZolin 2 Gm/50 mL D5W IV Premix IV ONE (14:45)
[2016-11-09] MEDS ORDERED: CEFA1VIA3 IV (15:27)
--- NOTE | 2016-11-09 15:29 | PCM.DIMED ---
Discharge Instructions Date of Service Nov 09, 2016 Dates of Hospitalization Oct 31, 2016 at 19:09 Discharge Diagnosis Discharge Diagnosis Cellulitis, ESRD, hyperkalemia Diet Discharge Diet: Renal Diet Call your provider Call your provider for: Shortness of breath, Excessive diarrhea Patient Instructions Follow-up with PCP in: 2 weeks Inder Rosales MD Nov 09, 2016 15:29
[2016-11-09] MEDS ORDERED: DARB100D IJ (15:31)
[2016-11-09 15:41] VITALS: BP 170/72; PULSE 69; RESP 18; O2SAT 94
--- NOTE | 2016-11-09 15:51 | PCM.DC.MED ---
Discharge Summary Date of Service Nov 09, 2016 Dates of Hospitalization Date of Hospital Admission Oct 31, 2016 at 19:09 Date of Discharge: Nov 09, 2016 Providers: Admitting Physician: Binh Gutierres MD Primary Care Physician: Gregorio Mcdonald MD Attending Physician: Binh Gutierres MD Diagnosis at Time of Discharge Diagnosis at Time of Discharge Cellulitis, ESRD, hyperkalemia Consultations ID and nephrology Procedures Cardiac Echo Impression 08/2016 Interpretation Summary The left ventricle is normal in size. The ejection fraction is estimated to be 60-65%. There has been no significant change in LV EF since the previous study. The right ventricle is borderline dilated. The right ventricular systolic function is normal. There is severe aortic stenosis (Paradoxically low gradient). The calculated aortic valve area is 1.0 cm2.The aortic valve area is 0.9 centimeters squared by planimetry. The peak aortic velocity is 3.6 m/sec. The aortic valve mean gradient is 32 mmHg. The peak aortic velocity on the previous exam was 3.8 m/sec. There is mild aortic regurgitation. Compared to the prior echo study, there has been no change in the severity of aortic regurgitation. There is trace tricuspid regurgitation. The right ventricular systolic pressure is estimated at 39 mmHg assuming a right atrial pressure of 3 mm Hg. Brief History 66yoF with past medical history of DM2, HTN, ESRD on HD, CHF and CAD with CC of weakness transferred from [place] with findings of potassium of 8.4. Patient is a poor historian due to mild confusion and some fatigue. She states that she has been progressively weaker over the past week up until today when she couldn't get out of bed. Her brother came to her and asked her to get up but she found that she couldn't. She also hasn't been able to go to dialysis because of discomfort when sitting due to an abscess. This "abscess is located in the right groin area and continues to drain and now has increased pain. She also endorses a similar wound on her buttocks which also has become more problematic. When questioned patient isn't aware of left lower extremity erythema and warmth. More recently she has also had progressive difficulties with diarrhea and incontinence. Patient denies lightheadedness, dizziness but endorses fever, chills, and diarrhea. She doesn't make urine any longer. At [place] patient as noted to have a potassium of 8.5 and was transferred for urgent dialysis. Medications received at OSH include albuterol, calcium gluconate, D50, furosemide, insulin and polystyrene sulfonate PCP: Dr. Mcdonald Guide Changer: Dr. Isaacs Hospital Course 66 yo F with past medical history of DM2, HTN, ESRD on HD, CHF and CAD with CC of weakness transferred from [place] with findings of potassium of 8.4. # Suspected acute cellulitis present on admission. - left lower extremity and groin area vs simple yeast infection - Appreciate ID consult. recs : to continue zosyn inpatient, once patient discharged - Ancef would be given on the 2-2-3 formula with 2 g after the Sunday and dialysis episodes and 3 g after the Sunday dialysis for one more week. The Cipro could just be 500 a day. - continue with Nystatin powder for suspected yeast infection - Procalcitonin significantly elevated at admission (ESRD might have contributed to the extremly large values), trended down - MRSA negative # Endstage Renal disease on hemodialysis - Appreciate nephrology consult. - Next HD per nephrology # Acute hyperkalemia resolved - appreciate nephrology consult.. # Diarrhea, acute, POA. Resolved. - stool studies negative - monitor fluid status # Acute Dyspnea, present on admission. Resolved - history of severe aortic stenosis, elevated bnp at OSH - concern for worsening CHF in the setting of missed dialysis - repeat limited ECHO on 11/01 showing EF 60-65% # Acute chest pain on 11/02/16. Resolved - Troponin only mildly elevated and steady. Elevated Trop is chronic and not significantly changed - EKG unremarkable - Echo unremarkable as noted above # Normocytic anemia, unknown chronicity - no acute blood loss - secondary to renal dysfunction, started on darbepoetin 100 mcg daily # Chronic Atrial Fibrillation - monitor on telemetry, rate controlled - on Metoprolol 25 mg daily - no longer on anticoagulation with Coumadin. Patient reports stopped taking because of "not liking the side effects" - further followup and addressing anticoagulation by PCP as outpatient # Diabetes Type 2 with neuropathy - low correction Lispro algorithm - no lantus 15 units here - fiollow up with pcp for diabetes management # Severe Aortic Stenosis Patient recommended for T[facility] procedure at [facility] # Coronary artery disease - continued Aspirin for antiplatelet therapy # Hypertension with hypotensive issues - continuing Midodrine as scheduled # Morbid Obesity with Obstructive Sleep apnea - continued CPAP at night # Depression, Anxiety with Restless Leg Syndrome - Presumed stable - continued Ropinirole, Venlafaxine and Amitriptyline Exam Vital Signs (Last) Date Time Temp Pulse Resp B/P Pulse Ox O2 Delivery O2 Flow Rate FiO2 11/09/16 15:41 36.6 69 18 170/72 94 Nasal Cannula 1.00 11/08/16 08:15 98 Test 10/31/16 20:00 11/01/16 05:10 11/02/16 06:05 11/03/16 09:11 Total Bilirubin 0.3mg/dL (0.0-1.2) Aspartate Amino Transf (AST/SGOT) 11U/L (0-50) Alanine Aminotransferase (ALT/SGPT) 8U/L (0-32) Alkaline Phosphatase 131U/L (25-165) Total Protein 7.0g/dL (6.4-8.4) Albumin 3.9g/dL (3.4-5.0) Pro-B-Type Natriuretic Peptide 9723pg/mL (0-287) Prothrombin Time 11.0sec (8.1-12.5) Prothromb Time International Ratio 1.03ratio Activated Partial Thromboplast Time 29.8sec (22.8-33.0) Phosphorus Level 3.8mg/dL (2.5-4.9) Magnesium Level 1.6mg/dL (1.6-2.6) Troponin T 0.063ug/L (0.0-0.011) Test 11/05/16 16:00 11/09/16 05:23 Urine Color Dark yellow (YELLOW) Urine Appearance Clear (CLEAR,HAZY) Urine pH 5.5 (5.0-8.0) Urine Specific [place] 1.015 (1.003-1.035) Urine Protein >300mg/dL (NEG,TRACE) Urine Glucose (UA) 100mg/dL (NEGATIVE) Urine Ketones Negativemg/dL (NEGATIVE) Urine Occult Blood Negative (NEGATIVE) Urine Nitrite Negative (NEGATIVE) Urine Bilirubin Negative (NEGATIVE) Urine Urobilinogen Normalmg/dL (NORMAL) Urine Leukocyte Esterase Trace (NEGATIVE) Urine RBC 0-2/hpf (0-2) Urine WBC 6-10/hpf (0-5) Urine Epithelial Cells Many/hpf (NONE-MOD) Urine Crystals None seen (NONE SEEN) Urine Bacteria Few/hpf (NONE-FEW) Urine Hyaline Casts None/lpf (NONE) Urine Granular Casts None seen (NONE SEEN) Urine Waxy Casts None seen (NONE SEEN) Urine Red Blood Cell Casts None seen (NONE SEEN) Urine White Blood Cell Casts None seen (NONE SEEN) Urine Mucus None seen (None Seen) Urine Trichomonas None seen (NONE SEEN) Urine Yeast None (NONE SEEN) Urinalysis Comment Amorphous sediment Urine Culture Reflexed Indicated White Blood Count 8.6th/mm3 (3.8-10.1) Red Blood Count 3.12mil/mm3 (3.90-5.20) Hemoglobin 9.0g/dL (12.0-15.6) Hematocrit 29.4% (35.0-46.0) Mean Corpuscular Volume 94.2fL (81-100) Mean Corpuscular Hemoglobin 28.8pg (27.0-35.0) Mean Corpuscular Hemoglobin Concent 30.6% (32.0-37.0) Red Cell Distribution Width 14.2% (12.3-15.4) Platelet Count 152bil/L (150-400) Neutrophils (%) (Auto) 60.7% (40-74) Lymphocytes (%) (Auto) 25.9% (14-46) Monocytes (%) (Auto) 8.8% (4-12) Eosinophils (%) (Auto) 4.1% (0-5) Basophils (%) (Auto) 0.3% (0-3) Sodium Level 138mEq/L (134-144) Potassium Level 5.2mEq/L (3.5-5.2) Chloride Level 94mEq/L (97-108) Carbon Dioxide Level 24mmol/L (18-29) Blood Urea Nitrogen 44mg/dL (8-27) Creatinine 5.88mg/dL (0.57-1.00) Estimat Glomerular Filtration Rate 10mL/min (>59) Glucose Level 128mg/dL (60-99) Calcium Level 8.5mg/dL (8.5-10.1) Procalcitonin 4.76ng/mL (0.00-0.08) Discharge Medications Discharge Medications Albuterol/Ipratropium (Combivent Respimat Inhal [place]) 120 Spr/4 Gm Inhaler 2 PUFF IH BID Prescribed by: BRUCE BERNAL MD Allopurinol (Allopurinol) 300 Mg Tablet 150 MG PO HS (Reported) Amitriptyline (Amitriptyline) 25 Mg Tab 50 MG PO HS (Reported) Ascorbate Calcium (Vitamin C) 500 Mg Tablet 500 PO DAILY (Reported) Aspirin (Aspirin) 81 Mg Tablet 81 MG PO DAILY (Reported) Atorvastatin (Lipitor) 20 Mg Tablet 20 MG PO DAILY (Reported) Cefazolin Sodium (Cefazolin IV) 1 Gm Vial 3 GM IV ONCE Prescribed by: BINH GUTIERRES MD Cefazolin Sodium (Cefazolin IV) 1 Gm Vial 2 GM IV ONCE Prescribed by: BINH GUTIERRES MD Cholecalciferol (Vitamin D3) (Vitamin D3) 400 Unit Tablet 400 UNIT PO DAILY ( Reported) Darbepoetin Mina in Polysorbat (Aranesp) 100 Mcg/0.5 Ml Syringe 100 MCG IJ DAILY Prescribed by: BINH GUTIERRES MD Furosemide (Furosemide) 40 Mg Tablet 80 MG PO BID (Reported) Insulin Glargine (Lantus U100 Solostar Insulin Pen) 100 Unit/1 Ml Insuln.pen 15 UNITS SUBQ HS (Reported) Metoprolol Succinate ER (Metoprolol Succinate ER) 25 Mg Tab.er.24h 25 MG PO HS ( Reported) Midodrine (Midodrine) 5 Mg Tablet 10 MG PO BID (Reported) take on dialysis days Omeprazole (Omeprazole) 20 Mg Tablet.dr 20 MG PO DAILY (Reported) Ropinirole (Ropinirole) 1 Mg Tablet 1 MG PO HS (Reported) Sevelamer Carbonate (Renvela) 800 Mg Tablet 1,600 MG PO TID (Reported) Venlafaxine ER (Venlafaxine ER) 75 Mg Cap.er.24h 75 MG PO DAILY (Reported) take along with 150mg ER for a total daily dose of 225mg As needed Acetaminophen (Acetaminophen) 500 Mg Tablet 500 MG PO Q6H PRN PRN For Pain ( Reported) Albuterol HFA (Proair HFA) 8.5 Gm Hfa.aer.ad 2 PUFF INH Q4H PRN PRN For Shortness of Breath Prescribed by: BRUCE BERNAL MD Cetirizine HCl (Zyrtec) 10 Mg Capsule 10 MG PO HS PRN PRN allergy Prescribed by: VIVIANE VEGA MD Insulin Aspart (NovoLOG U100 Insulin Vial) 100 U/Ml U 14 UNIT SUBQ TIDWM PRN PRN blood sugars (Reported) 2-3 UNITS 2 HOURS AFTER MEALS sliding scale based on blood sugar level Triamcinolone Acet (Triamcinolone Acetonide Cream) 1 Applic/0.25 Gm Cr 1 APPLIC TOP DAILY PRN PRN RASH (Reported) "TO PELVIC AREA WHEN NEEDED" Miscellaneous Medications Clotrimazole 1% (Clotrimazole 1%) 30 Ml Solution 30 ML TOPICAL (Reported) Followup Plan Discharge Diet: Renal Diet Follow-up with PCP in: 2 weeks Time spent 45 mins copies to: Gregorio Mcdonald MD, Abhinav MD Nov 09, 2016 15:51
--- NOTE | 2016-11-09 18:11 | NUR ---
Discharge Patient departed unit via wheelchair. Patient alert and oriented at time of discharge. Patient received a dose of Ancef and a dose of Darbepoetin following dialysis and prior to discharge. Patient continues to have some shortness of breath with activity. O2 sats 94% on room air. Discharge instructions/medications reviewed with patient prior to discharge. All questions addressed. Patient belongings, discharge instructions and prescriptions in hand.
== END 2016-11-09 18:09 | disposition home or self-care (01) | DRG 602 ==
LOC: MPC 19:09
PROVIDERS: ADMIT Internal Medicine; ATTEND Internal Medicine
PROC: 5A1D60Z (ICD-10-PCS; principal; 2016-11-01)
DX: L03.314 Cellulitis of groin (principal); N18.6 End stage renal disease; Z68.43 Body mass index [BMI] 50.0-59.9, adult; B37.89 Other sites of candidiasis; I12.0 Hypertensive chronic kidney disease with stage 5 chronic kidney disease or end stage renal disease; L03.116 Cellulitis of left lower limb; E87.5 Hyperkalemia; E66.01 Morbid (severe) obesity due to excess calories; I25.10 Atherosclerotic heart disease of native coronary artery without angina pectoris; Z79.4 Long term (current) use of insulin; E11.40 Type 2 diabetes mellitus with diabetic neuropathy, unspecified; E11.22 Type 2 diabetes mellitus with diabetic chronic kidney disease; Z99.2 Dependence on renal dialysis; E78.5 Hyperlipidemia, unspecified; I48.2 Chronic atrial fibrillation; Z79.01 Long term (current) use of anticoagulants; Z87.891 Personal history of nicotine dependence; G47.33 Obstructive sleep apnea (adult) (pediatric); F41.8 Other specified anxiety disorders; G25.81 Restless legs syndrome; D63.1 Anemia in chronic kidney disease